=== PATIENT | female | born 1985 | race Caucasian/White ===

== ENCOUNTER 2016-12-16 19:24 | Emergency (ER) | payer MEDICARE, MEDICAID ==
[~2016-12-16] VITALS: Ht 154.9 cm; Wt 96.6 kg
[~2016-12-16 19:24] MED LIST: ABILIFY2 MG; FERROUS SULFAT325 M2; FLINTSTONES W/I1 CTB PO; FOLIC ACID 1MG T1 MG PO; IBUPROFEN400 MG PO; KEPPRA 500 MG500 MG; PERCOCET 5/3251 EACH PO; PRENATAL GUMMIES OR; VISTARIL25 MG OR
[2016-12-16 19:59] LABS: URINE BILIRUBIN - DIPSTICK NEGATIVE (NEG)
[2016-12-16 20:00] LABS: URINE BLOOD NEGATIVE (NEG)
--- NOTE | 2016-12-16 20:05 | Urgent Treatment Center Report ---
History of Present Issue Date/Time Seen by Provider 12/16/161956 Visit Reason Pt arrived:Walked Presenting Problem:PT C/O OF BURNING WHEN SHE URINATES AND HER BLADDER LEAKING WHEN SHE WALKS Location if Accident: Onset of symptoms date/time:11/15/16 or onset unknown for: Have you (or family members/close friends) recently traveled outside the [place]? N If Yes, where/when: Have you had exposure to infectious disease within the past month? TB? Other? Specify: Patient state that she is having UTI symptoms, state that she is having burning with urination, dribbling of urine and feeling of urgency to go and that she is frequently urinating small amounts. States that she has a history of UTI and thinks she may have one Source patient ALLERGIES Coded Allergies: No Known Allergies (12/16/16) Home Medications Active Scripts IBUPROFEN MICRONIZED (IBUPROFEN 400MG) 400 MG PO Q4HP PRN #40 Prov: 01/29/13 Oxycodone 5MG/[id number] (Oxycodone-Acetaminophen 5-325) 1-2 TAB PO Q4HP #12 TAB Prov: 01/29/13 Reported Medications [ GUMMIES] 2 TAB OR DAILY History Medical History General CAD? No Angina: No AL: No Hypertension? No Hyperlipidemia? No CHF? No DVT? No PE? No COPD? No Asthma? No GERD? No Gastric ulcers? No GI Bleed? No Hernia? No Thyroid Problems? No Hypothyroidism? No CVA? No Seizures? Yes Diabetes? No Renal Insuffiency? No UTI? Yes Stones? No GB Disease: No Nephritic Syndrome? No Asplenia? No Sickle Cell Disease? No MRSA? No TB? No Depression? No Cancer? No Immunization HX DT/Tetanus 5-10 Years Ago Flu REFUSES Pneumonia REFUSES Surgical Hx Previous Surgery?Y LEEP-2008 Social History Smoking Hx Smoker: Never Smoker Tobacco: No Alcohol Alcohol: No Review of Systems All Other Systems Reviewed and Negative Genitourinary see HPI, dysuria, frequency, pain. denies: hesitancy, hematuria, pelvic pain. Physical Exam Vital Signs Vital Signs Date Time Temp Pulse Resp B/P Pulse O2 O2 Flow FiO2 Ox Delivery Rate 12/16 2026 98.1 104 20 122/81 100 12/17 1951 98.1 104 20 122/81 100 General Appearance normal appearance, WD/WN, no apparent distress Respiratory Status Yes: trachea midline, chest symmetrical, non tender chest. No: respiratory distress. 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 No Results/Orders Laboratory Tests 12/16/161958: Urine Color YELLOW, Urine Appearance CLEAR, Urine pH 7.5, Ur Specific [place] 1.015, Urine Protein NEGATIVE, Urine Ketones NEGATIVE, Urine Blood NEGATIVE, Urine Nitrate NEGATIVE, Urine Bilirubin NEGATIVE, Urine Urobilinogen 0.2, Ur Leukocyte Esterase LARGE, Urine Glucose NEGATIVE Current Medication Orders Sig/Alona Start time Last Medication Dose Route Stop Time Status Admin Lidocaine HCl 0 .STK-MED ONE 12/16 2002 DC IJ Ceftriaxone Sodium 0 .STK-MED ONE 12/16 2001 DC .ROUTE Ceftriaxone Sodium 1 GM ONCE ONE 12/17 1999 DC 12/16 IM 12/16 Lidocaine HCl 0 ONCE ONE 12/17 1999 DC 12/16 IM 12/16 Orders Procedure Date/time Status [facility] URINE 12/17 2003 Active [facility] URINE DIPSTICK 12/16 1958 Complete Departure Departure Time of Disposition 2000 Disposition DC Home or Self Care(routine) Clinical Impression Primary Impression: UTI (urinary tract infection) Qualifiers: Urinary tract infection type: site unspecified Hematuria presence: with hematuria Qualified Code: N39.0 - Urinary tract infection, site not specified Condition STABLE Referrals JEAN RANKIN (Family): 2 Days-Call Office Follow up with family doctor if no improvement in 2-3 days Patient Instructions DI for Urinary Tract Infection (UTI) Additional Instructions Take medication as prescribed Follow up with family doctor if needed Return if needed Drink plenty of fluids to help flush out the kidneys Discharge Counseling Counseled pt/family regarding diagnosis, test results, medications/RX, home care, follow up needs Prescriptions Current Visit Scripts SULFAMETHOXAZOLE W/TRIMETHOPRI (Bactrim Ds Tab) 1 TABLET PO BID #20 TAB Phenazopyridine HCl (Pyridium) 100 MG PO TID #6 TAB at 202
--- NOTE | 2016-12-16 20:05 | Urgent Treatment Center Report ---
History of Present Issue Date/Time Seen by Provider 12/16/161956 Visit Reason Pt arrived:Walked Presenting Problem:PT C/O OF BURNING WHEN SHE URINATES AND HER BLADDER LEAKING WHEN SHE WALKS Location if Accident: Onset of symptoms date/time:11/15/16 or onset unknown for: Have you (or family members/close friends) recently traveled outside the [place]? N If Yes, where/when: Have you had exposure to infectious disease within the past month? TB? Other? Specify: Patient state that she is having UTI symptoms, state that she is having burning with urination, dribbling of urine and feeling of urgency to go and that she is frequently urinating small amounts. States that she has a history of UTI and thinks she may have one Source patient ALLERGIES Coded Allergies: No Known Allergies (12/16/16) Home Medications Active Scripts IBUPROFEN MICRONIZED (IBUPROFEN 400MG) 400 MG PO Q4HP PRN #40 Prov: 01/29/13 Oxycodone 5MG/[id number] (Oxycodone-Acetaminophen 5-325) 1-2 TAB PO Q4HP #12 TAB Prov: 01/29/13 Reported Medications [ GUMMIES] 2 TAB OR DAILY History Medical History General CAD? No Angina: No CO: No Hypertension? No Hyperlipidemia? No CHF? No DVT? No PE? No COPD? No Asthma? No GERD? No Gastric ulcers? No GI Bleed? No Hernia? No Thyroid Problems? No Hypothyroidism? No CVA? No Seizures? Yes Diabetes? No Renal Insuffiency? No UTI? Yes Stones? No GB Disease: No Nephritic Syndrome? No Asplenia? No Sickle Cell Disease? No MRSA? No TB? No Depression? No Cancer? No Immunization HX DT/Tetanus 5-10 Years Ago Flu REFUSES Pneumonia REFUSES Surgical Hx Previous Surgery?Y LEEP-2008 Social History Smoking Hx Smoker: Never Smoker Tobacco: No Alcohol Alcohol: No Review of Systems All Other Systems Reviewed and Negative Genitourinary see HPI, dysuria, frequency, pain. denies: hesitancy, hematuria, pelvic pain. Physical Exam Vital Signs Vital Signs Date Time Temp Pulse Resp B/P Pulse O2 O2 Flow FiO2 Ox Delivery Rate 12/16 2026 98.1 104 20 122/81 100 12/17 1951 98.1 104 20 122/81 100 General Appearance normal appearance, WD/WN, no apparent distress Respiratory Status Yes: trachea midline, chest symmetrical, non tender chest. No: respiratory distress. 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 No Results/Orders Laboratory Tests 12/16/161958: Urine Color YELLOW, Urine Appearance CLEAR, Urine pH 7.5, Ur Specific [place] 1.015, Urine Protein NEGATIVE, Urine Ketones NEGATIVE, Urine Blood NEGATIVE, Urine Nitrate NEGATIVE, Urine Bilirubin NEGATIVE, Urine Urobilinogen 0.2, Ur Leukocyte Esterase LARGE, Urine Glucose NEGATIVE Current Medication Orders Sig/Alona Start time Last Medication Dose Route Stop Time Status Admin Lidocaine HCl 0 .STK-MED ONE 12/16 2002 DC IJ Ceftriaxone Sodium 0 .STK-MED ONE 12/16 2001 DC .ROUTE Ceftriaxone Sodium 1 GM ONCE ONE 12/17 1999 DC 12/16 IM 12/16 Lidocaine HCl 0 ONCE ONE 12/17 1999 DC 12/16 IM 12/16 Orders Procedure Date/time Status [facility] URINE 12/17 2003 Active [facility] URINE DIPSTICK 12/16 1958 Complete Departure Departure Time of Disposition 2000 Disposition DC Home or Self Care(routine) Clinical Impression Primary Impression: UTI (urinary tract infection) Qualifiers: Urinary tract infection type: site unspecified Hematuria presence: with hematuria Qualified Code: N39.0 - Urinary tract infection, site not specified Condition STABLE Referrals JEAN RANKIN (Family): 2 Days-Call Office Follow up with family doctor if no improvement in 2-3 days Patient Instructions DI for Urinary Tract Infection (UTI) Additional Instructions Take medication as prescribed Follow up with family doctor if needed Return if needed Drink plenty of fluids to help flush out the kidneys Discharge Counseling Counseled pt/family regarding diagnosis, test results, medications/RX, home care, follow up needs Prescriptions Current Visit Scripts SULFAMETHOXAZOLE W/TRIMETHOPRI (Bactrim Ds Tab) 1 TABLET PO BID #20 TAB Phenazopyridine HCl (Pyridium) 100 MG PO TID #6 TAB at 202
[2016-12-16] MEDS ORDERED: BACTRIM DS 8001 TA1 PO (20:23)
[2016-12-16] MEDS ORDERED: PYRIDIUM100 M2 PO (20:23)
[2016-12-16 20:27] VITALS: BP 122/81
--- OUTSIDE RECORDS SUMMARY | 2016-12-23 04:51 | External Medical Summary Rpt ---
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 TH 00 t ti 10 3- 7- 00 84 Av ve 38 20 20 HO 9 ai 50 08 08 ME la 5 TO bl WN e PH AR MA CY , IN C. 63 03 04 00 30 10 BA 60 No Ac 30 -1 -1 .0 TH 06 t ti 40 3- 7- 00 47 Av ve 65 20 20 HO 9 ai 50 08 08 ME la 5 TO bl WN e PH AR MA CY , IN C. 00 03 04 00 21 6 BA 60 No Ac 55 -1 -1 .0 TH 06 t ti 50 3- 7- 00 48 Av ve 30 20 20 HO 0 ai 13 08 08 ME la 8 TO bl WN e PH AR MA CY , IN C. 00 09 03 00 47 15 BA 60 No Ac LO 11 -1 -2 3. TH 02 t ti RH 62 8- 4- 00 95 Av ve EX 00 20 20 0 HO 8 ai ID 11 07 08 ME la IN 6 TO bl E WN e 0. 12 PH % AR RI MA NS CY E , IN C. FE 00 12 03 01 30 30 BA 60 No Ac RR 57 -1 -2 .0 TH 02 t ti OU 40 1- 4- 00 01 Av ve S 50 20 20 HO 3 ai GL 81 07 08 ME la UC 1 TO bl ON WN e AT E PH 32 AR 4 MA MG CY , TA IN B C. 66 12 03 01 30 30 BA 60 No Ac 47 -1 -2 .0 02 t ti 90 - 4- 00 01 Av ve 83 20 20 HO 4 ai 09 07 08 ME la 0 TO bl WN e PH AR MA CY , IN C. Immunization Name Date Route CVX Reacti Commen Provid Is Given on t er Refuse d IIV4 [place] No VACC 2016 N CO SPLIT [facility] VIRUS 0.5 ML DEPART DOS MENT FOR IM USE Vital Signs 01-27-2013 19:35 Name Value Interpretat Reference Comment ion Range Weight 129 [lb_av] Measured Weight 58.514 kg Measured Results Labs Lab Lab Date Result Refere Interp Status Commen Order Detail nces retati t Range on pH BldCo (01-27-2013 20:53) pH 7.34 7.35-7. complet BldCo 013 UNK 45 ed 20:53 CBC with AUTO DIFF (01-27-2013 15:45) WBC # -04-2 8.4 4.8-10. complet Bld 013 K/MM3 8 ed Auto 15:45 RBC # -04-2 3.43 4.2-5.4 complet Bld 013 M/mm3 ed Auto 15:45 Hgb 01-27-2 8.9 12.2-16 complet Bld-mCn 013 g/dL .2 ed c 15:45 Hct Fr 01-27-2 28.6 % 37.0-47 complet Bld 013 .0 ed 15:45 MCV RBC 01-27-2 83.4 fl 82.2-97 complet 013 .8 ed 15:45 MCH RBC 04-2 25.9 pg 27-31.2 complet Qn 013 ed Auto 15:45 MEAN 01-27- 31.1 31.8-35 complet CORPUSC 013 g/dl .4 ed ULAR 15:45 HGB CONC RDW RBC 04-2 17.0 % 11.5-17 complet Auto 013 .5 ed 15:45 Platele 2 225 142-424 complet t Bld 013 K/mm3 ed Ql 15:45 Manual MEAN 07-04-2 9.3 fl 7.4-10. complet PLATELE 013 4 ed T 15:45 VOLUME Granulo 07-04-2 72.9 % 37.0-80 complet cytes 013 .0 ed Fr Bld 15:45 Auto LYMPH % 07-04-2 23.1 % 10-50.0 complet 013 ed 15:45 Monocyt 07-04-2 3.1 % 1.7-9.3 complet es Fr 013 ed Bld 15:45 Auto Eosinop 07-04-2 0.7 % 0.1-12. complet hil Fr 013 0 ed Bld 15:45 Auto Basophi 07-04-2 0.2 % 0.1-2.0 complet ls Fr 013 ed Bld 15:45 Auto Granulo 07-04-2 6.1 1.8-7.8 complet cytes # 013 K/mm3 ed Bld 15:45 Auto Lymphoc 07-04-2 1.9 0.7-4.5 complet ytes Fr 013 K/mm3 ed Bld 15:45 Auto Monocyt 07-04-2 0.3 0.1-1.0 complet es # 013 K/mm3 ed Bld 15:45 Auto Eosinop 07-04-2 0.1 0.0-0.4 complet hil # 013 K/mm3 ed Bld 15:45 Auto Basophi 07-04-2 0.0 0-0.2 complet ls # 013 K/MM3 ed Bld 15:45 Auto SPT, QUALITATIVE (05-07-2012 10:45) SPT, NEGATIV NEGATIV Normal complet QUALITA 012 E E ed TIVE 10:45 Procedures Procedure DOS Code Location Performer Comment IM ADM 64296 [facility] PRQ ID 7 [facility] [employer] HEALTH SUBQ/IM NJXS 1 DEPARTMEN DEPARTMEN VACCINE T T IIV4 VACC 56165 [facility] SPLIT 7 DC [facility] HE[facility] VIRUS 0.5 ML DOS DEPARTMEN DEPARTMEN FOR IM T T USE NONEMERG A0120 FEDERATED FEDERATED TRNSPRT: 6 [facility]SPORT TRANSPORT MTN ATION SER ATION SER AREA/OTH SYS NONEMERG A0120 FEDERATED FEDERATED TRNSPRT: 6 [facility] TRANSPORT TRANSPORT MTN [facility] SER [facility] SYS NONEMERG A0120 FEDERATED FEDERATED TRNSPRT: 6 [facility]-BUS TRANSPORT TRANSPORT MTN [facility] SYS THERAPEUT 87900 [place] IC PX 1/> 6 [facility] EACH 15 MIN EXERCISES CARRY G8986 [place] MOVING 6 [facility] HAND OBJ [facility] NGUYEN D/C STS D/C TX/REP CAR MOV G8985 [place] HDLG OBJ 6 [facility] TX OUTSET&RE P INTRVL NONEMERG A0120 FEDERATED FEDERATED TRNSPRT: 6 MIN[facility]-BUS TRANSPORT TRANSPORT [facility] SER [facility] SYS THERAPEUT 62678 [place] IC PX 1/> 6 [facility] EACH 15 MIN EXERCISES THERAPEUT 32490 [place] IC PX 1/> 6 [facility] EACH 15 MIN EXERCISES IADNA 58646 LAB [facility] LEYDA VAZQUEZ 6 [facility] [employer] AMPLIFIED PROBE TQ IADNA 45975 [facility] LAB LEYDA CHLAMYDIA 6 [facility] [employer] [employer] TRACHOMAT IS AMPLIFIED PROBE TQ IADNA 82821 LAB [facility] LAB LEYDA NEISSERIA 6 [facility] [employer] GONORRHOE AE AMPLIFIED PROBE TQ IADNA NOS 66350 LAB LE[facility] LAB LEYDA 6 [facility] AMPLIFIED 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 TQ EACH ORGANISM E-STIM G0283 [place] 1/> AREAS 6 [facility] WND CARE PART TX PLAN IADNA 40463 LAB [facility] LAB LEYDA TRICHOMON 6 [facility] [employer] VAGINALIS AMPLIFIED PROBE TECH CARRY MOV G8984 [place] HANDLNG 6 [facility] NGUYEN CUR TX REP INTRVL CAR MOV G8985 [place] HDLG OBJ 6 [facility] TX OUTSET&RE P INTRVL PHYSICAL 21550 [facility] PIPERUR[facility] THERAPY 6 [facility] N CULTURE 63174 [place] BACTERIAL [address] [place] [address] QUANTTATI VE COLONY COUNT URINE COLLECTIO 11399 [facility] N VENOUS 6 [facility] VENIPUNCT URE URNLS DIP 56988 [facility] YUONGON [address] [place] [address] STICK/TAB [facility] LET REAGENT AUTO MICROSCOP Y BLOOD 74331 [facility] [place] COUNT [address] [place] [address] AUTO&AUTO DIFRNTL WBC LIPID 14378 [facility] [place] PANEL [address] [place] [address] [place] [address] [facility] THYROID [address] [place] [address] NG HORMONE TSH COMPREHEN 65103 [place] SIVE [address] [place] [address] [place] [address] [facility] [place] NON-IMMUN [address] [place] [address] OT/N CYTOPATHI C NONCOVERE A9270 [facility] D ITEM OR [address] [place] [address] IADNA 45196 [facility] NEISSERIA [address] [place] [address] GONORRHOE AE AMPLIFIED PROBE TQ IADNA 27631 [facility] CHLAMYDIA [address] [place] [address] TRACHOMAT IS AMPLIFIED PROBE TQ SMR PRIM 86463 [facility] SRC WET [address] [facility] NFCT AGT URINE 15394 [place] [address] [place] [address] VISUAL COLOR CMPRSN METHS URNLS DIP 59147 [facility] YOUNGON [address] [place] [address] STICK/TAB [facility] LET REAGENT AUTO MICROSCOP Y IADNA 01644 [facility], HUMAN 5 [facility] VIRUS HIGH-RISK TYPES THERAPEUT 89202 [facility] YOUNGON IC [address] [place] [address] TIC/DX INJECTION SUBQ/IM OPHTH 47860 SCIFRES SCIFRES MEDICAL 4 ANG ANG XM&EVAL COMPRE NEW PT 1/> VST RADEX 56754 DORCAS TOSCANO HAND 3 EDW EDW MINIMUM 3 VIEWS MEDICAL 50724 [facility]NG[facility] NUTRITION 3 [facility] RE-ASSMT& DEPARTMEN DEPARTMEN IVNTJ T T IN[place] [address] [place] [address] CONSUELO CORDERO HEAD/BRAI 3 HARRIETT N W/O CONTRAST MATERIAL XTRNL ECG 50887 CHOUDHURY SHERICE CHOUDHURY SHERICE & 48 HR 3 RECORDING ECHO 28612 CHOUDHURY SHERICE CHOUDHURY SHERICE TTHRC R-T 3 2D W/WOM-MOD E COMPL SPEC&COLR D ECG 78102 [facility] ROUTINE 3 ECG W/LEAST 12 LDS W/I&R VAGINAL 07040 DEION [facility] DELIVERY 3 MONE MONE ONLY W/POSTPAR CLIF CARE NEURAXIAL 79733 GRANT CYNDIE GRANT CYNDIE LABOR 3 ANALG/ANE S PLND VAGINAL DELIVERY OTHER 7359 ANITA HOWARD MANUALLY 3 [facility] ASSISTED INC INC DELIVERY NONCOVERE A9270 VERONIQUEPARVEEN HANNAHON D ITEM OR 3 [facility] URNLS DIP 33720 ANITA HOWARD 3 [facility] STICK/TAB INC INC LET REAGENT AUTO MICROSCOP Y 08092 ANITA HOWARD NONSTRESS 3 [facility] TEST INC INC DOPPLER 68470 [facility] VELOCIMET 3 MONE MONE RY UMBILICAL ARTERY US PREG 31891 [facility] [place] UTERUS 3 MONE MONE REAL TIME F/U TRNSABDL PER FETUS 62555 [facility] BIOPHYSIC 3 MONE MONE AL PROFILE W/O NON-STRES S TESTING 30912 HARPEL HARPEL NONSTRESS 3 KHLOE KHLOE TEST DOPPLER 30543 [facility] [place] VELOCIMET 3 MONE MONE RY UMBILICAL ARTERY 65964 [facility] [place] BIOPHYSIC 3 MONE MONE AL PROFILE W/O NON-STRES S TESTING US PREG 21118 [facility] [place] UTERUS 3 MONE MONE REAL TIME F/U TRNSABDL PER FETUS URINE 15155 [place] ABLARRAN 3 MONE MONE TEST VISUAL COLOR CMPRSN METHS URINE 61057 DICKEY DICKEY 2 SABINO SABINO TEST VISUAL COLOR CMPRSN METHS URINE 45988 JOSE MAR[facility] CO JOSE MARIA CO 2 HEALTH HEALTH TEST DEPT DEPT VISUAL COLOR CMPRSN METHS URINE 92150 JOSE MARIA CO JOSE MARIA CO 2 HEALTH HEALTH TEST DEPT DEPT VISUAL COLOR CMPRSN METHS MEDICAL 16290 JOSE MAR[facility] CO JOSE MARIA CO NUTRITION 2 HEALTH HEALTH DEPT DEPT ASSMT&IVN TJ INDIV EACH 15 [place] COLLECTIO 79425 QUINN QUINN N VENOUS 2 SAY SAY BLOOD VENIPUNCT URE URINE 28279 QUINN QUINN 2 SAY SAY TEST VISUAL COLOR CMPRSN METHS GONADOTRO 78407 [facility] PIN [address] QUALITATI VE NONCOVERE A9270 [facility] D ITEM OR 2 Y Y SERVICE HOSPITAL [facility] URNLS DIP 07170 [facility] 2 Y Y STICK/TAB [facility] LET REAGENT AUTO MICROSCOP Y IADNA 28597 [facility] STREPTOCO 2 Y Y CCUS [facility] GROUP [place]Q [address] [facility] NONSTRESS 2 Y Y TEST [facility] 98481 [facility] NONSTRESS 2 Y Y TEST [facility] US PREG 18353 [facility] UTERUS 2 Y Y REAL TIME HOSPITAL [facility] F/U TRNSABDL PER FETUS 41412 [facility] BIOPHYSIC 2 Y Y AL [facility] PROFILE W/O NON-STRES S TESTING 95299 [facility] NONSTRESS 2 Y Y TEST [facility] 08577 [facility] 2 Y Y UTERUS [facility] LIMITED 1/> FETUSES 30783 [facility] NONSTRESS 2 HEALTH MONE TEST [facility] 93166 [facility] 2 MEDICAL RADHA AL IMAGING PROFILE ASS NON-STRES S TESTING 81631 [facility] NONSTRESS 2 Y Y TEST HOSPITAL HOSPITAL COLLECTIO 96488 [place] N VENOUS 2 [facility] HOSPITAL VENIPUNCT URE INJECTION J0696 [facility] YOUNGON 2 [facility] NE SODIUM [place] [address] [place] [address] [place] INFUSION 2 [facility] THERAPY/[facility] S /DX 1ST TO 1 HR COMPREHEN 33804 [place] SIVE 2 [facility]PITAL PANEL URINE 18794 [facility] [place] 2 [facility] VISUAL COLOR CMPRSN METHS CULTURE 36399 [place] BACTERIAL 2 [facility] QUANTTATI VE COLONY COUNT URINE IADNA 08298 [place] NEISSERIA 2 [facility] GONORRHOE AE DIRECT PROBE TQ URNLS DIP 79761 [facility] [place] [address] [place] [address] STICK/TAB HOSPITAL HOSPITAL LET REAGENT AUTO MICROSCOP Y BLOOD 16829 [facility] [place] COUNT [address] [place] [address] HOSPITAL AUTO&AUTO DIFRNTL WBC IADNA 30686 [place] CHLAMYDIA 2 [facility] [place] [address] [facility] NONSTRESS 2 Y Y TEST HOSPITAL HOSPITAL INJECTION J2405 [facility] 2 [facility] ON HCL PER [place] [address] [facility] LIPASE 2 [facility] HOSPITAL COMPREHEN 32051 [facility] SIVE 2 [facility]OSPITAL PANEL ELECTROEN 08764 [facility] CEPHALOGR 2 Y Y AM W/REC HOSPITAL HOSPITAL AWAKE&SIDRA WSY BLOOD 78829 [facility]NG[facility] COUNT 2 [facility] HOSPITAL AUTO&AUTO DIFRNTL WBC URNLS DIP 11089 [facility] [address] [place] [address]/TAB [facility] LET [place] [address] [facility] AMYLASE 2 [facility] COLLECTIO 51840 [facility] N VENOUS 2 [facility] VENIPUNCT URE THER 50167 [facility] PROPH/DX 2 [facility] NJX IV [facility] PUSH SINGLE/1S T SBST/[place] [address] [facility] [place] SCALF SHAHBAZ 2 RADIOLOGY UTERUS LIMITED 1/> FETUSES CULTURE 43865 [facility] BACTERIAL 2 [facility] QUANTTATI VE COLONY COUNT URINE URNLS DIP 88863 [facility] 2 [facility] STICK/TAB [facility] LET REAGENT AUTO MICROSCOP Y ALPHA-FET 48586 LAB COR LAB COR OPROTEIN 2 [place] [address] LAB COR LAB COR ESTRIOL 2 [place] [address] LAB [facility] LAB COR 2 [facility] GONADOTRO 46501 LAB COR LAB COR PIN 2 [facility]IONIC [facility] HOLDING QUANTITAT [place]BE [place] PREG 79339 ISHA VIEIRA J UTERUS 2 REAL TIME F/U TRNSABDL PER FETUS US PREG 26617 VIEIRA J VIEIRA J UTERUS 2 REAL TIME W/IMAGE DCMTN TRANSVAG CYTP 96626 PATHOLOGY ALEX[facility] CERVICAL/ 2 & NANI VAGINAL CYTOLOGY REQ LAB INTERP PHYSICIAN IADNA 71443 PATHOLOGY ALEXUS CHLAMYDIA 2 & NANI CYTOLOGY TRACHOMAT LAB IS AMPLIFIED PROBE TQ CYTP C/V 03063 PATHOLOGY [facility] AUTO THIN 2 & NANI LYR CYTOLOGY PREPJ SCR LAB MNL RESCR PHYS IADNA 82342 PATHOLOGY ALEXUS NEISSERIA 2 & NANI CYTOLOGY GONORRHOE LAB AE AMPLIFIED PROBE TQ AMB A0427 [facility] 2 RODRIGUE HUSAIN ALS CO EMS CO EMS EMERGENCY TRANSPORT LEVEL 1 GROUND A0425 [facility] RODRIGUE HUSAIN PER DC EMS CO EMS STATUTE MILE ECG [address] [facility] ROUTINE [address] W/LEAST 12 LDS TRCG ONLY W/O I&R ECG 07125 [facility] BOOKER ROUTINE 1 MEDICAL [facility] ECG CENTER W/LEAST 12 LDS I&R ONLY RADIOLOGI [address] [facility] C [address] ON CHEST SINGLE VIEW FRONTAL URINE [address] [facility] [address] VISUAL COLOR CMPRSN METHS THERAPEUT 01773 BATH HERNANDEZ IC 1 [facility] OZZY PROPHYLAC TIC/DX INJECTION SUBQ/IM THER [address] [facility] PROPH/DX [address] NJX [address] PUSH SINGLE/1S T SBST/DRUG COLLECTIO [address] [facility] N VENOUS [address] VENIPUNCT URE URINE [address] [facility] [address] VISUAL COLOR CMPRSN METHS COMPREHEN [address] [facility] SIVE [address] PANEL INJECTION J1885 [facility] [address] TROMETHAM INE [place] [address] [place] [address] [facility] INFUSION [address] EACH ADDITIONA L HOUR URNLS DIP [address] [facility] 1 MEDICAL MEDICAL STICK/TAB CT CT LET REAGENT AUTO MICROSCOP Y RADIOLOGI [address] [facility] C EXAM 1 MEDICAL MEDICAL CHEST [address] VIEWS FRONTAL&L ATERAL BLOOD [address] [facility] COUNT [address] AUTO&[place] [address] [facility] INFLUENZA 1 MEDICAL MEDICAL A/B EACH [place] CYTP [address] [facility] CERV/VAG [address]ICAL MED[address] AUTO THIN [address] LAYER PREP MNL SCREEN URNLS DIP 37517 [facility] 1 [place] STICK/TAB LET RGNT AUTO W/O MICROSCOP Y URINE 57372 [facility] 1 [facility] K[facility]BER[place] TEST VISUAL COLOR CMPRSN METHS BLOOD [address] [facility] COUNT [address] MCRSCP W/MNL DIFRNTL WBC COUNT CUL BACT [address] [facility] AEROBIC [address] [place] [address] [facility] INFUSION [address] EACH ADDITIONA L HOUR COMPREHEN [address] [facility] SIVE [address] [place] [address] [facility] INFUSION [address] PROPHYLAX IS/DX EA HOUR COLLECTIO [address] [facility] N VENOUS [address] VENIPUNCT URE INJECTION J2405 [facility] [address] ON HCL [place] [address] [facility] INFUSION 0 MEDICAL MEDICAL THERAPY/P CT CT ROPHYLAXI S /DX 1ST TO [address] [facility] IC [address] IV PUSH EACH NEW DRUG INCISION [address] [facility] & [address] ABSCESS COMPLICAT ED/MULTIP LE INJECTION J2175 [facility] [address] E HCL PER [address] B[address] [facility] COUNT [address] AUTOMATED CULTURE [address] [facility] BACTERIAL [address] AEROBIC W/ID ISOLATES SUSCEPTIB [address] [facility] LTY STDY [address] IAL MICRO/AGA R DILUTJ ORTHOPANT 57007 FREDDY SANDOVAL OGRAM [address] [place] [place] [address] [facility] [place] J[place] HEAD/BRAI 0 RADIOLOGY N W/O CONTRAST MATERIAL ELECTROEN [address] [place] CEPHALOGR 0 MEDICAL MEDICAL AM W/REC CTR CTR AWAKE&ASL EEP ELECTROEN 23666 [facility] MOMO, CEPHALOGR 0 CLINIC ENAWGAW AM W/REC AWAKE&SIDRA WSY URINE 57541 BATH CO BATH CO 0 [facility] VISUAL COLOR CMPRSN METHS IADNA 66259 BATH CO BATH CO CHLAMYDIA 0 [facility] TRACHOMAT IS AMPLIFIED PROBE TQ IADNA 61147 BATH CO BATH CO NEISSERIA 0 [facility] [place] [address] [facility] BILL, HEAD/BRAI 0 REGIONAL SONY N W/O & W/CONTRAS RADIOLOGY T PHYS MATERIAL SRVS COMPREHEN 81053 [facility] SIVE 0 MEDICAL MEDICAL METABOLIC CTR CTR PANEL URINE 26805 [facility] 0 MEDICAL MEDICAL TEST CTR CTR VISUAL COLOR CMPRSN METHS COLLECTIO 54970 [facility] N VENOUS 0 MEDICAL MEDICAL BLOOD CTR CTR VENIPUNCT URE URINE 57071 [facility], 0 [facility] D TEST VISUAL COLOR CMPRSN METHS COLLECTIO 38684 [facility], N VENOUS 0 [facility] PU[place] [address] [facility] THYROID 0 MEDICAL MEDICAL STIMULATI CTR CTR NG HORMONE TSH BLOOD 30603 [facility] COUNT 0 MEDICAL MEDICAL COMPLETE CTR CTR AUTO&AUTO DIFRNTL WBC URNLS DIP 00023 [facility], 0 [facility] D STICK/TAB LET REAGENT AUTO MICROSCOP Y GONADOTRO 90407 [facility] PIN 0 [facility] APOLINAR QUALITATI VE BLOOD 59002 [facility] COUNT 0 [place] COMPLETE APOLINAR APOLINAR AUTO&AUTO DIFRNTL WBC URNLS DIP 17618 [facility] 0 [place] STICK/TAB APOLINAR APOLINAR LET RGNT AUTO W/O MICROSCOP Y BASIC 40311 [facility] METABOLIC 0 [place] PANEL APOLINAR APOLINAR CALCIUM TOTAL COLLECTIO 63703 [facility] N VENOUS 0 [place] BLOOD APOLINAR APOLINAR VENIPUNCT URE URINE 05270 [facility]ATH [facility], 0 [facility] D TEST VISUAL COLOR CMPRSN METHS COLLECTIO 20786 [facility], N VENOUS 0 [facility] [place] [address] [facility] BLOOD/URI 0 MEDICAL MEDICAL C ACID CTR CTR ANTINUCLE 78670 [facility] AR 0 MEDICAL MEDICAL ANTIBODIE CTR CTR S LULU RHEUMATOI 90139 [facility] D FACTOR 0 MEDICAL MEDICAL QUALITATI CTR CTR VE SEDIMENTA 10893 [facility] TION RATE 0 MEDICAL MEDICAL RBC CTR CTR NON-AUTOM ATED URINE 50749 BATH RAFAEL, 0 [facility] PUJA D TEST VISUAL COLOR CMPRSN METHS URINE 35710 [facility] ST [place] 0 MEDICAL MEDICAL TEST CTR CTR VISUAL COLOR CMPRSN METHS URNLS DIP [address] [facility] ST [place] 0 MEDICAL MEDICAL STICK/TAB CTR CTR LET RGNT AUTO W/O MICROSCOP Y CYTP 15754 [facility] ST [place] CERV/VAG 0 MEDICAL MEDICAL AUTO THIN CTR CTR LAYER PREP MNL SCREEN URINE 41775 BATH CO BATH CO 0 [facility] VISUAL COLOR CMPRSN METHS IADNA 12343 [facility]/CO BATH CO CHLAMYDIA 9 [facility] TRACHOMAT BANK ACCT IS AMPLIFIED PROBE TQ CYTP 25893 [facility] [place] CERV/VAG 9 MEDICAL MEDICAL AUTO THIN CTR CTR LAYER PREP MNL SCREEN AMINES 52241 [facility]/CO BATH CO VAGINAL 9 [facility] QUALITATI BANK ACCT VE IADNA 83936 [facility]/CO BATH CO NEISSERIA 9 [facility] GONORRHOE BANK ACCT AE AMPLIFIED PROBE TQ CYTP 600[facility] AUTO THIN CTR CTR LAYER PREP MNL SCREEN CYTP 20499 [facility]OSS, CERVICAL/ 8 MEDICAL TJ VAGINAL [place] [facility] 489[address] [facility] HENLY, DISCHARGE 8 [facility]INIC [facility] DAY MANAGEMEN T 30 MIN/< CIRCUMCIS 45869 [facility] VALLEJO ION 8 [facility] W/CLAMP/O TH DEV W/BLOCK HX&XM NML 09719 NAVARRO VALLEJO NB INFT 8 [facility] INITIATIO N DX&TX VAGINAL 46565 NAVARRO MCBREAIRT DELIVERY 8 CLINIC Y, DEB H ONLY W/POSTPAR CLIF CARE OTHER [address] [facility] MANUALLY 8 [facility] ASSISTED [facility] CTR DELIVERY OTHER [address] [facility] ARTIFICIA 8 [facility]ICAL MEDICAL L RUPTURE CTR CTR OF [place]BRANES [place] PREG [address] [facility] [place] STEVE UTERUS 8 REGIONAL II, [place] REAL TIME D F/U RADIOLOGY TRNSABDL PHYS PER FETUS SRVS [address] [facility] STEVE BIOPHYSIC 8 REGIONAL II, [place] AL D PROFILE RADIOLOGY W/O PHYS NON-STRES SRVS S TESTING [address] [facility] BIOPHYSIC 8 MEDICAL MEDICAL AL CTR CTR PROFILE W/O NON-STRES S TESTING INITIAL 85926 NAV[facility]O WHITTAKERT OBSERVATI 8 CLINIC Y, DEB H ON CARE/DAY [id number] [facility] 8 [facility]ICAL CEFAZOLIN CTR CTR SODIUM [address] [facility] LACTATE 8 [facility]ICAL INFUSION CTR CTR UP TO 1000 CC 55504 NAVARRO RAHULAIRT NONSTRESS 8 CLINIC Y, DEB H TEST THER [address] [facility] PROPH/DX 8 MEDICAL MEDICAL NJX IV CTR CTR PUSH 1ST SBST/DRUG [address] [facility] NONSTRESS 8 [facility]ICAL MEDICAL TEST CTR CTR RINGERS J7120 [facility] [address] [facility] LACTATE 8 [facility] INFUSION CTR CTR UP TO [address] [facility] BACTERIAL 8 MEDICAL MEDICAL CTR CTR QUANTTATI VE COLONY COUNT URINE IV NFUS [address] [place] HYDRATION 8 MEDICAL MEDICAL EA HR CTR CTR URNLS DIP [address] [facility] 8 MEDICAL MEDICAL STICK/TAB CTR CTR LET RGNT AUTO W/O MICROSCOP Y CUL [address] [facility] PRSMPTV 8 MEDICAL MEDICAL PTHGNC CTR CTR ORGANISM SCRN W/COLONY ESTIMJ [address] [facility] NONSTRESS 8 MEDICAL MEDICAL TEST CTR CTR [place] PREG [address] [facility] [place] STEVE UTERUS 8 REGIONAL II, [place] AFTER 1ST D TRIMEST RADIOLOGY PHYS GESTATION SRVS [address] [facility] STEVE BIOPHYSIC 8 REGIONAL II, [place] AL D PROFILE RADIOLOGY W/O PHYS NON-STRES SRVS S TESTING MANUAL 73.59 Steven Albarran MD DELIV NEC Encounters Encounter Start End Date Code Location Performer Type Date OFFICE 69906 [facility] 7 7 T VISIT 25 MINUTES [facility] - [address] [place] [address] T EMERGENCY [address] T VISIT MODERATE SEVERITY OFFICE 31815 [facility] 6 6 T VISIT 15 MINUTES OFFICE 97890 [facility] T VISIT 15 MINUTES OFFICE 86870 [facility] 6 6 T [facility]ISIT 15 [facility]UTES [facility] 6 [facility] T [facility] S[facility] [address] [place] [address] T OFFICE 74295 [facility] 6 6 T VISIT 25 MINUTES [facility] [address] [place] [address] [facility] 6 [facility] T EMERGENCY [address] T VISIT MODERATE SEVERITY [facility] [place] - 6 6 [facility] T [facility]ERGENCY 18281 [facility] 6 6 [facility] EMERGENCY T VISIT PHYS HIGH/URGE NT SEVERITY EMERGENCY 74231 [place] 6 6 [facility] H[facility]PITAL T VISIT HIGH/URGE NT SEVERITY [facility]OSP[facility] [place] - 6 6 [facility] T EMERGENCY 93372 [place] 5 5 [facility] T VISIT LOW/MODER SEVERITY [facility] [place] - 5 5 [facility] T EMERGENCY 01067 [facility] EILEEN II 5 5 [facility] EMERGENCY T VISIT PHYS MODERATE SEVERITY EMERGENCY 09852 [facility] T[facility]MAN 4 4 [facility] EMERGENCY T VISIT PHYS MODERATE SEVERITY [facility] [place] - 4 4 [facility] T EMERGENCY 78201 [facility] T VISIT PHYS MODERATE SEVERITY [facility] [place] - 4 4 [facility] T EMERGENCY 74617 [place] 4 4 [facility] T VISIT LIMITED/M INOR PROB EMERGENCY 52083 EILEEN II EILEEN II 4 4 [facility] T VISIT MODERATE SEVERITY OFFICE 59573 [facility] T VISIT 15 MINUTES OFFICE 67197 [facility] T VISIT 15 MINUTES EMERGENCY 89548 SWINE[facility] SWINEY 3 3 PAT [facility] T VISIT MODERATE SEVERITY EMERGENCY 57010 CELLAROSI CELLAROSI 3 3 - YORBA - YORBA [facility] PAT PAT T VISIT MODERATE SEVERITY OFFICE 75139 [facility] OUT[facility] 3 3 T VISIT 15 MINUTES EMERGENCY 19255 DORCAS TOSCANO 3 3 EDW EDW [facility] T VISIT MODERATE SEVERITY EMERGENCY 88785 [facility] 3 3 [facility] T VISIT LOW/MODER SEVERITY EMERGENCY 59844 CELLAROSI CELLAROSI 3 3 YORBA - YORBA [facility] PAT PAT T VISIT MODERATE SEVERITY [facility] [place] - 3 3 [facility] T OFFICE 78329 [facility] OUT[facility] 3 3 T NEW 45 MINUTES Inpatient [facility] Anita Albarran MD (IN) 3 13:40 3 11:11 [facility] ANITA - 3 3 [facility] SESSER - 3 3 [facility] T EMERGENCY 73704 [facility] 3 3 [facility] T VISIT HIGH/URGE NT SEVERITY HOSPITAL ANITA - 3 3 [facility] 24235 [facility]L OUTPATIEN 3 3 KHLOE KHLOE T VISIT 15 MINUTES [facility] - 3 3 [facility] T EMERGENCY 89526 [facility] T VISIT HIGH/URGE NT SEVERITY OFFICE 03882 [facility] 3 3 MONE T NEW 30 MINUTES OFFICE 76759 DICKEY DICKEY OUTPATIEN 2 2 SABINO SABINO T NEW 30 MINUTES OFFICE 36002 [facility] 2 2 [facility] T VISIT DEPT DEPT 15 MINUTES OFFICE 27891 [facility] [place] [facility] 2 2 [facility] T VISIT DEPT DEPT 10 MINUTES OFFICE 85128 [facility] [place] 2 2 SAY SAY T VISIT [address] [facility] [address] [facility] - 2 2 [facility] OFF[facility] 07372 UN[facility] OUTPATIEN 2 2 Y T VISIT 5 [facility] UNIVERSIT - 2 2 [facility] UNIVERS[facility] - 2 2 [facility] 2 [facility] - 2 2 Y [facility] T OFFICE 22717 [facility] [place] 2 2 [facility] UNIVERS[facility] - 2 2 Y [facility] T EMERGENCY 77700 [place] 2 2 [facility] T VISIT HIGH/URGE NT SEVERITY [facility]OSP[facility] [place] - 2 2 [facility] T OFFICE 63848 [facility] [place] 2 2 Y T VISIT 5 [facility] UNIVERSIT - 2 2 [facility] 2 2 Y [facility] [place] - 2 2 [facility] T EMERGENCY 09474 [place] 2 2 [facility] T VISIT HIGH/URGE NT SEVERITY EMERGENCY 97923 [place] 2 2 [facility] T VISIT MODERATE SEVERITY [facility] [place] - 2 2 [facility] T OFFICE 42681 ISHA VIEIRA J OUTPATIEN 2 2 T VISIT 15 MINUTES EMERGENCY 18282 [facility] 2 2 N [facility] T VISIT HOSPITA LOW/MODER SEVERITY [facility]OSPITAL [facility] - 2 2 N OUTPATIEN COMMUNITY T HOSPITA EMERGENCY 35347 MINISTERIO MANDEL 2 2 TIARA TIARA DEPARTMEN T VISIT MODERATE SEVERITY OFFICE 44767 ISHA VIEIRA J OUTPATIEN 2 2 T NEW 45 MINUTES OFFICE 95474 AMY GALVAN MAR OUTPATIEN 1 1 [facility] T VISIT [address] [facility] - [address] T EMERGENCY 82998 [facility] [address] T VISIT MODERATE SEVERITY EMERGENCY 91961 [facility] DEPT 1 1 [facility] [place] VISIT HIGH EMERGENCY SEVERITY& THREAT FUNCJ OFFICE 70987 BATH HERNANDEZ OUTPATIEN 1 1 [facility] T VISIT [address] [facility] - [address] T EMERGENCY 34083 [facility] [address] T VISIT HIGH/URGE NT SEVERITY OFFICE 69187 [facility] BROMAGEN OUTPATIEN 1 1 [facility]ES [facility] - 1 1 [facility] OUTPATIEN [facility] T EMERGENCY 84592 [facility] 1 1 MICHAEL PHI DEPARTMEN EMERGENCY T VISIT PHYS MODERATE SEVERITY [facility]PITAL [facility] - [address] T OFFICE 37274 [facility] JEANINE OUTPATIEN 1 1 [facility] SANDY T VISIT WOMEN'S 15 CARE MINUTES OFFICE 39395 [facility]ATH BROMAGEN OUTPATIEN 1 1 [facility] T VISIT 15 MINUTES OFFICE 09850 BATH BROMAGEN OUTPATIEN 1 1 [facility] VIS[facility] [address] [facility] 0 0 REGIONAL DEPARTMEN T VISIT EMERGENCY HIGH/URGE NT SEVERITY [facility]PITAL [facility] - [address] EMER[address] [facility] [address] T VISIT LOW/MODER SEVERITY OFFICE 41695 [facility]ATH BROMAGEN OUTPATIEN 0 0 [facility] T VISIT 15 MINUTES OFFICE 65999 [facility] T VISIT [address] [facility] - [address] EMER[address] [facility] [address] T VISIT LOW/MODER SEVERITY EMERGENCY [address] [facility] [address] T VISIT LOW/MODER SEVERITY HOSPITAL [facility] - [address] [facility] - [address] EMERG[address] [facility] [address] T VISIT HIGH/URGE NT SEVERITY OFFICE 68446 JEANINE OUTPATIEN 0 0 [facility] SANDY T VISIT WOMEN'S 10 CARE MINUTES EMERGENCY [address]32 [facility] JALALON 0 0 REGIONAL SIE DEPARTMEN T VISIT EMERGENCY HIGH/URGE NT SEVERITY [facility]OSPITAL [facility] - [address] EMERGENCY [address] [facility] [address] T VISIT LOW/MODER SEVERITY OFFICE 91916 [facility] MOMO OUTPATIEN 0 0 CLINIC CE T VISIT 15 MINUTES OFFICE 37321 FREDDY SANDOVAL CONSULTAT 0 0 HOPE DON ION IIIPSC NEW/ESTAB N02 PATIENT 30 MIN OFFICE 29249 ARAPAHOE BROMAGEN OUTPATIEN 0 0 [facility] T VISIT 15 MINUTES OFFICE 38297 [facility] MOMO OUTPATIEN 0 0 CLINIC CE T VISIT 15 MINUTES OFFICE 57209 [facility] BARR OUTPATIEN 0 0 CLINIC CE T VISIT 15 MINUTES EMERGENCY 76638 [facility] DE[facility] 0 0 EMERGENCY CAR VISIT SERVICES HIGH SEVERITY& THREAT FUNCJ OFFICE 13334 [facility] BARR OUTPATIEN 0 0 CLINIC CE T VISIT 15 MINUTES OFFICE 26828 [facility] BARR, OUTPATIEN 0 0 CLINIC ENAWGAW T VISIT 15 MINUTES OFFICE 75349 [facility] BARR, CONSULTAT 0 0 CLINIC ENAWGAW ION NEW/ESTAB PATIENT [address] [facility] - 0 0 MEDICAL OUTPATIEN CTR T PERIODIC 33876 BATH CO BATH CO PREVENTIV 0 0 [facility] E [facility] CENTER PATIENT 18-[address] [facility] - 0 0 MEDICAL OUTPATIEN CTR T [facility]PITAL [facility] - 0 0 MEDICAL OUTPATIEN CTR T OFFICE 82386 [facility], OUTPATIEN 0 0 [facility] PUJA D T VISIT [address] [facility] 0 0 [facility]IS[facility] HIGH/URGE NT SEVERITY [facility]PITAL [facility] - [address] [facility] T OFFICE 71262 [facility], OUTPATIEN 0 0 [facility] PUJA D T VISIT 15 MINUTES OFFICE 64324 [facility], OUTPATIEN 0 0 [facility] PUJA D T VISIT [address] [facility] - 0 0 MEDICAL OUTPATIEN CTR T OFFICE 83235 [facility], OUTPATIEN 0 0 [facility] PUJA D T VISIT [address] [facility] - 0 0 MEDICAL OUTPATIEN CTR T EMERGENCY [address] [facility] RAVISANKA 0 0 REGIONAL R, DEPARTMEN [place] T VISIT EMERGENCY AM HIGH/URGE PHYS NT SEVERITY EMERGENCY [address] [facility] 0 0 MED[facility] T VISIT MODERATE SEVERITY [facility] - 0 0 MEDICAL OUTPATIEN CTR T OFFICE 56935 BATH CO BATH CO OUTPATIEN 0 0 [facility] T VISIT CENTER CENTER 15 MINUTES OFFICE 63480 [facility], OUTPATIEN 9 9 [facility] NEW 20 MINUTES PERIODIC 00598 DHS/CO BATH CO PREVENTIV 9 9 [facility] PATIENT BANK ACCT 18-39 [facility] - 9 [address] T [facility] [place] [address] [address] T [facility] [place] [address] 8 MEDICAL INPATIENT CTR OFFICE 35179 NAV[facility] MCBREAIRT OUTPATIEN 8 8 CLINIC Y, DEB H T VISIT 15 MINUTES HOSPITAL [facility] 8 8 MEDICAL OUTPATIEN CTR T OFFICE 06370 [facility] OUTPATI 8 8 MEDICAL T VISIT CTR 15 MINUTES [facility] [place] [address] [address] [facility] 8 8 MEDICAL OUTPATIEN CTR T OFFICE 98516 [facility] OUTPATI 8 8 MEDICAL T VISIT 5 CTR MINUTES [facility]OSPITAL [facility] 8 8 MEDICAL OUTPATIEN CTR T OFFICE 05559 [facility] MCBREAIRT OUTPATIEN 8 8 CLINIC Y, DEB H T VISIT 15 MINUTES OFFICE 69396 NAV[facility]O MCBREAIRT OUTPATIEN 8 8 CLINIC Y, DEB H T VISIT 15 MINUTES
--- OUTSIDE RECORDS SUMMARY | 2016-12-23 04:51 | External Medical Summary Rpt ---
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 METABOLIC CTR CTR PANEL URINE 15202 [facility] 0 MEDICAL MEDICAL TEST CTR CTR VISUAL COLOR CMPRSN METHS COLLECTIO 28491 [facility] N VENOUS 0 MEDICAL MEDICAL BLOOD CTR CTR VENIPUNCT URE URINE 97227 [facility], 0 [facility] D TEST VISUAL COLOR CMPRSN METHS COLLECTIO 45618 [facility], N VENOUS 0 [facility] [place] [address] [facility] THYROID 0 MEDICAL MEDICAL STIMULATI CTR CTR NG HORMONE TSH BLOOD 68420 [facility] COUNT 0 MEDICAL MEDICAL COMPLETE CTR CTR AUTO&AUTO DIFRNTL WBC URNLS DIP 05017 [facility], 0 [facility] D STICK/TAB LET REAGENT AUTO MICROSCOP Y GONADOTRO 65033 [facility] PIN 0 [place] [facility]ION[facility] APOLINAR APOLINAR QUALITATI VE BLOOD 52724 [facility] COUNT 0 [place] COMPLETE APOLINAR APOLINAR AUTO&AUTO DIFRNTL WBC URNLS DIP 20976 [facility] 0 [place] STICK/TAB AP[facility]INAR APOLINAR LET RGNT AUTO W/O MICROSCOP Y BASIC 06875 [facility] METABOLIC 0 [place] PANEL APOLINAR APOLINAR CALCIUM TOTAL COLLECTIO 28298 [facility] N VENOUS 0 [place] BLOOD APOLINAR APOLINAR VENIPUNCT URE URINE 22688 BATH RAFAEL, 0 COUNTY PUJA D TEST VISUAL COLOR CMPRSN METHS COLLECTIO 38809 [facility], N VENOUS 0 [facility] [place] [address] [facility] BLOOD/URI 0 MEDICAL MEDICAL C ACID CTR CTR ANTINUCLE 49218 [facility] AR 0 MEDICAL MEDICAL ANTIBODIE CTR CTR S LULU RHEUMATOI 36258 [facility] D FACTOR 0 MEDICAL MEDICAL QUALITATI CTR CTR VE SEDIMENTA 23469 [facility] TION RATE 0 MEDICAL MEDICAL RBC CTR CTR NON-AUTOM ATED URINE 01554 BATH RAFAEL, 0 [facility] PUJA D TEST VISUAL COLOR CMPRSN METHS URINE [address] [facility] [address] AR[facility] 0 MEDICAL MEDICAL TEST CTR CTR VISUAL COLOR CMPRSN METHS URNLS DIP 08547 [facility] ST AR[facility] 0 MEDICAL MEDICAL STICK/TAB CTR CTR LET RGNT AUTO W/O MICROSCOP Y CYTP [address] [facility] [address] [facility] CERV/VAG 0 MEDICAL MEDICAL AUTO THIN CTR CTR LAYER PREP MNL SCREEN URINE 57509 BATH CO BATH CO 0 [facility] VISUAL COLOR CMPRSN METHS IADNA 51677 DHS/CO BATH CO CHLAMYDIA 9 [facility] TRACHOMAT BANK ACCT IS AMPLIFIED PROBE TQ CYTP [address] [facility] [address] [facility] CERV/VAG 9 MEDICAL MEDICAL AUTO THIN CTR CTR LAYER PREP MNL SCREEN AMINES 43423 DHS/CO BATH CO VAGINAL 9 [facility] QUALITATI BANK ACCT VE IADNA 43509 DHS/CO BATH CO NEISSERIA 9 [facility] GONORRHOE BANK ACCT AE AMPLIFIED PROBE TQ CYTP 13146 [facility] CERV/VAG 8 MEDICAL MEDICAL AUTO THIN CTR CTR LAYER PREP MNL SCREEN CYTP 70395 ST AR[facility]ITA SLOSS, CERVICAL/ 8 MEDICAL TJ VAGINAL [place] [facility] [address] [facility] HENLY, DISCHARGE 8 CLINIC KIMMY DAY MANAGEMEN T 30 MIN/< CIRCUMCIS 73654 [facility] VALLEJO ION 8 [facility] W/CLAMP/O TH DEV W/BLOCK HX&XM NML 32799 [facility] VALLEJO NB INFT 8 [facility] INITIATIO N DX&TX VAGINAL 47516 [facility] MCBREAIRT DELIVERY 8 CLINIC Y, DEB H ONLY W/POSTPAR CLIF CARE OTHER [address] [facility] MANUALLY 8 MEDICAL MEDICAL ASSISTED CTR CTR DELIVERY OTHER [address] [facility] ARTIFICIA 8 MEDICAL MEDICAL L RUPTURE CTR CTR OF [place]BR[place] PREG [address] [facility]PITA STEVE UTERUS 8 REGIONAL II, [place] REAL TIME D F/U RADIOLOGY TRNSABDL PHYS PER FETUS SRVS [address] ST [facility] STEVE BIOPHYSIC 8 REGIONAL II, [place] AL D PROFILE RADIOLOGY W/O PHYS NON-STRES SRVS S TESTING [address] [facility] BIOPHYSIC 8 MEDICAL MEDICAL AL CTR CTR PROFILE W/O NON-STRES S TESTING INITIAL 50662 [facility] WHITTAKERT OBSERVATI 8 CLINIC Y, DEB H ON CARE/DAY [address] IN[address] [facility] 8 MEDICAL MEDICAL CEFAZOLIN CTR CTR SODIUM [address] [facility] LACTATE 8 MEDICAL MEDICAL INFUSION CTR CTR UP TO 1000 CC [address]23 [facility] RAHULAIRT NONSTRESS 8 CLINIC Y, DEB H TEST THER [address] [facility] PROPH/DX 8 MEDICAL MEDICAL NJX IV CTR CTR PUSH 1ST SBST/DRUG [address] [facility] NONSTRESS 8 MEDICAL MEDICAL TEST CTR CTR RINGERS J7120 [facility] [address] [facility] LACTATE 8 MEDICAL MEDICAL INFUSION CTR CTR UP TO [address] [facility] BACTERIAL 8 MEDICAL MEDICAL CTR CTR QUANTTATI VE COLONY COUNT URINE IV NFUS [address] [facility] HYDRATION 8 MEDICAL MEDICAL EA HR CTR CTR URNLS DIP [address] [facility] 8 MEDICAL MEDICAL STICK/TAB CTR CTR LET RGNT AUTO W/O MICROSCOP Y CUL [address] [facility] PRSMPTV 8 MEDICAL MEDICAL PTHGNC CTR CTR ORGANISM SCRN W/COLONY ESTIMJ [address] [facility] NONSTRESS 8 MEDICAL MEDICAL [place] [address] [facility] STEVE UTERUS 8 REGIONAL II, [place] AFTER 1ST D TRIMEST RADIOLOGY PHYS GESTATION SRVS [address] [facility] STEVE BIOPHYSIC 8 REGIONAL II, [place] AL D PROFILE RADIOLOGY W/O PHYS NON-STRES SRVS S TESTING MANUAL 73.59 Steven Albarran MD DELIV NEC Encounters Encounter Start End Date Code Location Performer Type Date OFFICE 58875 [facility] 7 7 T VISIT 25 MINUTES [facility] [address] [place] [address] T EMERGENCY [address] T VISIT MODERATE SEVERITY OFFICE 72517 [facility] 6 6 T VISIT 15 MINUTES OFFICE 12761 [facility] 6 6 T VISIT [address] [facility] 6 6 T [facility] 6 [facility] T [facility] [place] [facility] [address] [place] [address] [facility] 6 6 T VISIT 25 MINUTES [facility] [address] [place] [address] T [facility] 6 [facility] T EMERGENCY [address] T VISIT MODERATE SEVERITY [facility] [place] [facility] 6 6 [facility] T EMERGENCY 88655 [facility] 6 [facility] EMERGENCY T VISIT PHYS HIGH/URGE NT SEVERITY EMERGENCY 58884 [place] 6 6 [facility] T VISIT HIGH/URGE NT SEVERITY [facility]OSPITAL [place] - 6 6 [facility] T EMERGENCY 45050 [place] 5 5 [facility] T VISIT LOW/MODER SEVERITY [facility] [place] - 5 5 [facility] T EMERGENCY 62544 [facility] EILEEN II 5 5 [facility] EMERGENCY T VISIT PHYS MODERATE SEVERITY EMERGENCY 17052 [facility] [place] 4 4 [facility] EMERGENCY T VISIT PHYS MODERATE SEVERITY [facility]OSP[facility] [place] - 4 4 [facility] T EMERGENCY 77098 [facility] EMERGENCY T VISIT PHYS MODERATE SEVERITY [facility]OSP[facility] [place] - 4 4 [facility] T EMERGENCY 25739 [place] 4 4 [facility] T VISIT LIMITED/M INOR PROB EMERGENCY 94889 EILEEN II EILEEN II 4 4 [facility] T VISIT MODERATE SEVERITY OFFICE 09413 [facility] T VISIT 15 MINUTES OFFICE 63330 [facility] 4 4 T VISIT 15 MINUTES EMERGENCY 44807 SWINE[facility] SWINEY 3 3 [facility]IS[facility] MODERATE SEVERITY EMERGENCY 71433 CELLAROSI CELLAROSI 3 3 - [facility] - [facility] PAT PAT T VISIT MODERATE SEVERITY OFFICE 88942 [facility] 3 3 T VISIT 15 MINUTES EMERGENCY 27559 DORCAS TOSCANO 3 3 [facility] T VISIT MODERATE SEVERITY EMERGENCY 05144 [facility] 3 3 [facility] T VISIT LOW/MODER SEVERITY EMERGENCY 42424 CELLAROSI CELLAROSI 3 3 [facility] PAT PAT T VISIT MODERATE SEVERITY [facility] [place] - 3 3 [facility] T OFFICE 46578 [facility] 3 3 T NEW 45 MINUTES Inpatient [facility] Anita Albarran MD (IN) 3 13:40 3 11:11 [facility] ANITA - 3 3 [facility] - 3 3 [facility] T EMERGENCY 94107 [place] 3 3 [facility] T VISIT HIGH/URGE NT SEVERITY HOSPITAL AN[facility] - 3 3 [facility] 28824 [facility] OUTPATIEN 3 3 KHLOE KHLOE T VISIT 15 MINUTES [facility] 3 3 [facility] T EMERGENCY 69115 [facility] 3 3 [facility] T VISIT HIGH/URGE NT SEVERITY OFFICE 05234 [facility] OUT[facility] 3 3 MONE T NEW 30 MINUTES OFFICE 87501 DICKEY DICKEY OUTPATIEN 2 2 SABINO SABINO T NEW 30 MINUTES OFFICE 73054 [facility] [place] [facility] OUTPATI[facility] 2 2 [facility]ALTH HEALTH T VISIT DEPT DEPT 15 MINUTES OFFICE 67027 [facility] [place] [facility] [place] OUTPATIEN 2 2 HEALTH HEALTH T VISIT DEPT DEPT 10 MINUTES OFFICE 43613 [facility] 2 2 SAY SAY T VISIT [address] [facility] [address] [facility] - 2 2 [facility] 69953 UN[facility]ERSIT OUTPATIEN 2 2 Y T VISIT 5 [facility] UNIVERSIT - 2 2 [facility] - 2 2 [facility] 2 2 [facility] 2 2 Y [facility] T OFFICE 21830 [facility] 2 [facility] UNIVERSIT - 2 2 Y [facility] T EMERGENCY 00730 [place] 2 2 [facility] T VISIT HIGH/URGE NT SEVERITY [facility]OSP[facility] [place] - 2 2 [facility] T OFFICE 95867 [facility] 2 2 Y T VISIT 5 [facility] UNIVERSIT - 2 2 [facility] 2 2 [facility] [place] - 2 2 [facility] T EMERGENCY 12548 [place] 2 2 [facility] T VISIT HIGH/URGE NT SEVERITY EMERGENCY 15677 [place] 2 2 [facility] T VISIT MODERATE SEVERITY [facility] [place] - 2 2 [facility] T OFFICE 90487 ISHA VIEIRA J OUTPATIEN 2 2 T VISIT 15 MINUTES EMERGENCY 09392 [facility] 2 2 N [facility] T VISIT HOSPITA LOW/MODER SEVERITY [facility]OSPITAL [facility] 2 2 N OUTPATIEN COMMUNITY T HOSPITA EMERGENCY 54795 MINISTERIO MANDEL 2 2 TIARA TIARA DEPARTMEN T VISIT MODERATE SEVERITY OFFICE 68777 ISHA VIEIRA J OUTPATIEN 2 2 T NEW 45 MINUTES OFFICE 59425 AMY GALVAN MAR OUTPATIEN 1 1 COUNTY T VISIT [address] [facility] - [address] T EMERGENCY 47938 [facility] [address] T VISIT MODERATE SEVERITY EMERGENCY 97930 [facility] 1 1 [place] VISIT HIGH EMERGENCY SEVERITY& THREAT FUNCJ OFFICE 71184 [facility] HERNANDEZ OUTPATIEN 1 1 [facility] T VISIT [address] [facility] - [address] T EMERGENCY 30009 [facility] [address] T VISIT HIGH/URGE NT SEVERITY OFFICE 69431 [facility] BROMAGEN OUTPATIEN 1 1 [facility] T VISIT 15 MINUTES HOSPITAL [facility] - 1 1 [facility] OUTPATIEN APOLINAR T EMERGENCY 49210 [facility] 1 1 MICHAEL PHI DEPARTMEN EMERGENCY T VISIT PHYS MODERATE SEVERITY [facility]OSPITAL ST [facility] - [address] T OFFICE 39061 [facility] JEANINE OUTPATIEN 1 1 [facility] SANDY T VISIT WOMEN'S 15 CARE MINUTES OFFICE 11232 [facility] BROMAGEN OUTPATIEN 1 1 [facility] KIMBERLY T VISIT 15 MINUTES OFFICE 70106 [facility] BROMAGEN OUTPATIEN 1 1 [facility] T VISIT [address] [facility] 0 0 REGIONAL DEPARTMEN T VISIT EMERGENCY HIGH/URGE NT SEVERITY HOSPITAL ST [facility] - [address] EMER[address] [facility] [address] T VISIT LOW/MODER SEVERITY OFFICE 73813 [facility] OUTPATIEN 0 0 [facility] KIMBERLY T VISIT 15 MINUTES OFFICE 42067 [facility] KIMBERLY T VISIT [address] [facility] - [address] EMER[address] [facility] [address] T VISIT LOW/MODER SEVERITY EMERGENCY [address] [facility] [address] T VISIT LOW/MODER SEVERITY HOSPITAL ST [facility] - [address] [facility] [facility] - [address] EMERGENCY [address] [facility] [address] T VISIT HIGH/URGE NT SEVERITY OFFICE 55421 JEANINE OUTPATIEN 0 0 [facility] SANDY T VISIT WOMEN'S 10 CARE MINUTES EMERGENCY [address] [facility] JALALON 0 0 REGIONAL SIE DEPARTMEN T VISIT EMERGENCY HIGH/URGE NT SEVERITY HOSPITAL ST [facility] - [address] EMER[address] [facility] [address] T VISIT LOW/MODER SEVERITY OFFICE 51975 [facility] MOMO OUTPATIEN 0 0 CLINIC CE T VISIT 15 MINUTES OFFICE 45978 FREDDY SANDOVAL CONSULTAT 0 0 HOPE DON ION IIIPSC NEW/ESTAB N02 PATIENT 30 MIN OFFICE 58904 [place] BROMAGEN OUTPATIEN 0 0 [facility] KIMBERLY T VISIT 15 MINUTES OFFICE 16573 [facility] MOMO OUTPATIEN 0 0 CLINIC CE T VISIT 15 MINUTES OFFICE 14467 [facility] BARR OUTPATIEN 0 0 CLINIC CE T VISIT 15 MINUTES EMERGENCY 95459 [facility] DEPT 0 0 EMERGENCY CAR VISIT SERVICES HIGH SEVERITY& THREAT FUNCJ OFFICE 82398 [facility] OUTPATIEN 0 0 CLINIC CE T VISIT 15 MINUTES OFFICE 58649 [facility] BARR, OUTPATIEN 0 0 CLINIC ENAWGAW T VISIT 15 MINUTES OFFICE 98335 [facility] BARR, CONSULTAT 0 0 CLINIC ENAWGAW ION NEW/ESTAB PATIENT [address] [facility] - 0 0 MEDICAL OUTPATIEN CTR T PERIODIC 59320 BATH CO BATH CO PREVENTIV 0 0 [facility] E [facility] C[facility] CENTER PATIENT 18-[address] [facility] - 0 0 MEDICAL OUTPATIEN CTR T [facility]PITAL [facility] - 0 0 MEDICAL OUTPATIEN CTR T OFFICE 32832 [facility], OUTPATIEN 0 0 [facility] PJUA D T VISIT [address] BIBI 0 0 [facility] T VISIT HIGH/URGE NT SEVERITY HOSPITAL ST BIBI - [address] [facility] T OFFICE 85685 [place] OUTPATIEN 0 0 [facility] PUJA D T VISIT 15 MINUTES OFFICE 56684 [place] [place], OUTPATIEN 0 0 [facility] PUJA D T VISIT [address] [facility] - 0 0 [facility]EN CTR T OFFICE 47970 [place], OUTPATIEN 0 0 [facility] PUJA D T VISIT [address] [facility] - 0 0 [facility] OUTPATIEN CTR T EMERGENCY 65552 [facility] 0 0 [facility]IONAL R, DEPARTMEN [place] T VISIT EMERGENCY AM HIGH/URGE PHYS NT SEVERITY EMERGENCY 91240 [facility] 0 0 [facility] T VISIT MODERATE SEVERITY [facility] - 0 0 [facility] OUTPATIEN CTR T OFFICE 56617 [facility] OUTPATIEN 0 0 [facility] VISIT CENTER CENTER 15 MINUTES OFFICE 91476 [place], OUTPATIEN 9 9 [facility] NEW 20 MINUTES PERIODIC 54817 DHS/CO BATH CO PREVENTIV 9 9 [facility] PATIENT [facility]ANK ACCT 18-39 [facility] - 9 9 MEDICAL OUTPATIEN [facility] [place] [address] [address] [facility] OUTPATIEN [facility] [place] [address] 8 MEDICAL INPATIENT CTR OFFICE 57709 [facility] OUTPATIEN 8 8 CLINIC Y, DEB H T VISIT 15 MINUTES [facility] 8 8 MEDICAL OUTPATIEN CTR T OFFICE 29602 [facility] OUTPATI 8 8 MEDICAL T VISIT CTR 15 MINUTES [facility] [place] [address] [address]EN [facility] T [facility] 8 8 MEDICAL OUTPATIEN CTR T OFFICE 94254 [facility] OUTPATI 8 8 MEDICAL T VISIT 5 CTR MINUTES [facility] 8 8 MEDICAL OUTPATIEN CTR T OFFICE 01484 [facility] OUT[facility] 8 8 CLINIC Y, DEB H T VISIT 15 MINUTES OFFICE 14065 [facility] OUT[facility]IEN 8 8 CLINIC Y, DEB H T VISIT 15 MINUTES
--- OUTSIDE RECORDS SUMMARY | 2016-12-23 04:57 | External Medical Summary Rpt ---
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 [facility] NONSTRESS 2 Y Y TEST [facility] CULTURE 73205 [facility] [address] [place] [address] QUANTTATI VE COLONY COUNT URINE COLLECTIO 79616 [place] N VENOUS 2 [facility] VENIPUNCT URE INJECTION J0696 [facility] YOUNGON 2 [facility]PITAL NE SODIUM PER 250 MG IADNA 14984 [place] NEISSERIA 2 [facility] [place] [address] [place] INFUSION [address] [facility] THERAPY/P HOSPITAL HOSPITAL ROPHYLAXI S /DX 1ST TO 1 HR URNLS DIP [address] STICK/TAB HOSPITAL HOSPITAL LET REAGENT AUTO MICROSCOP Y URINE 34619 [place] 2 [facility] HOSPITAL VISUAL COLOR CMPRSN METHS BLOOD 84428 [facility] COUNT [address] [place] [address] HOSPITAL AUTO&AUTO DIFRNTL WBC IADNA 95337 [facility] CHLAMYDIA 2 [facility] TRACHOMAT IS DIRECT PROBE TQ COMPREHEN 35875 [facility] [address] HOSPITAL PANEL [address] [facility] NONSTRESS 2 Y Y TEST HOSPITAL HOSPITAL INJECTION J2405 [address] HOSPITAL ON HCL PER 1 MG ELECTROEN 96295 [facility] CEPHALOGR 2 Y Y AM W/REC [facility] HOSPITAL AWAKE&SIDRA WSY COMPREHEN 55998 [place] [facility] [address] [place] [address] HOSPITAL PANEL BLOOD 11204 [facility] COUNT [address] [place] [address] HOSPITAL AUTO&[place] [address] [place] LIPASE [address] [place] [address] [place] [address] [place] AMYLASE 2 [facility] H[facility]PITAL URNLS DIP 97883 [facility] PIPER[address] STICK/TAB HOSPITAL HOSPITAL LET REAGENT AUTO MICROSCOP Y THER 74142 [place] PROPH/DX 2 [facility] NJX IV [facility] HOSPITAL PUSH SINGLE/1S T SBST/DRUG COLLECTIO 18261 [place] N VENOUS 2 [facility] [place] [address] [place] SCALF SHAHBAZ 2 RADIOLOGY UTERUS LIMITED 1/> FETUSES CULTURE 61580 [place] BACTERIAL 2 [facility] QUANTTATI VE COLONY COUNT URINE URNLS DIP 25436 [place] 2 [facility] HOSPITAL [place] [address] LAB COR LAB COR ESTRIOL 2 [facility] PREG 17561 ISHA VIEIRA J UTERUS 2 REAL TIME F/U TRNSABDL PER FETUS ALPHA-FET 23029 LAB COR LAB COR OPROTEIN 2 [facility] [place] [address] LAB COR LAB COR 2 [facility] GONADOTRO 01955 LAB COR LAB COR PIN 2 [facility] CHORIONIC [facility] HOLDING QUANTITAT KOBE CYTP 81732 PATHOLOGY ALEX[facility] CERVICAL/ 2 & NANI VAGINAL CYTOLOGY REQ LAB INTERP PHYSICIAN CYTP C/V 68277 PATHOLOGY [facility] AUTO THIN 2 & NANI LYR CYTOLOGY PREPJ SCR LAB [place] P[place] 65992 ISHA VIEIRA J UTERUS 2 REAL TIME W/IMAGE DCMTN TRANSVAG IADNA 34235 PATHOLOGY ALEXUS NEISSERIA 2 & NANI CYTOLOGY GONORRHOE LAB AE AMPLIFIED PROBE TQ IADNA 95207 PATHOLOGY ALEXUS CHLAMYDIA 2 & NANI CYTOLOGY TRACHOMAT LAB IS AMPLIFIED PROBE TQ AMB A0427 [facility] SERVICE 2 RODRIGUE HUSAIN [facility] EMERGENCY TRANSPORT LEVEL 1 GROUND A0425 [facility] MILEAGE 2 RODRIGUE HUSA[facility] PER [facility] STATUTE MILE URINE [address] [facility] [address] VISUAL COLOR CMPRSN METHS RADIOLOGI 70292 ST ARPITA ONEIDA C 1 REGIONAL SANDY EXAMINATI RADIOLOG ON CHEST SINGLE VIEW FRONTAL ECG [address] [facility] ROUTINE [address] W/LEAST 12 LDS TRCG ONLY W/O I&R ECG 35378 ST [facility] BOOKER ROUTINE 1 MEDICAL SANDY ECG CENTER W/LEAST 12 [facility] I&R ONLY THERAPEUT 42752 [facility] HERNANDEZ IC 1 [facility] OZZY PROPHYLAC TIC/DX INJECTION SUBQ/IM THER [address] [facility] PROPH/DX [address] MED[address] NJX IV [address] CT PUSH SINGLE/1S T SBST/[place] [address] [facility] INFUSION [address] EACH ADDITIONA L HOUR RADIOLOGI 13416 ST ARPITA STEVE II C EXAM 1 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 CHEST 2 RADIOLOG VIEWS FRONTAL&L ATERAL BLOOD [address] [facility] COUNT [address] AUTO&AUTO DIFRNTL WBC COLLECTIO [address] [facility] N VENOUS [address] VENIPUNCT URE INJECTION J1885 [facility] [facility] [address] TROMETHAM INE PER [address] [facility] [address] VISUAL COLOR CMPRSN METHS COMPREHEN [address] [facility] SIVE [address] [place] [address] [facility] INFLUENZA 1 MEDICAL MEDICAL A/B EACH CT CT URNLS DIP [address] [facility] 1 MEDICAL MEDICAL STICK/TAB CT CT LET REAGENT AUTO MICROSCOP Y CYTP [address] [facility] CERV/VAG [address]ICAL MED[address] AUTO [address]IN [address] LAYER PREP MNL SCREEN URINE 92903 [facility] BROMAGEN 1 COUNTY KIMBERLY TEST VISUAL COLOR CMPRSN METHS URNLS DIP 60283 [facility] 1 [facility] KIMBERLY STICK/TAB LET RGNT AUTO W/O MICROSCOP Y COMPREHEN [address] [facility] SIVE [address] PANEL BLOOD [address] [facility] COUNT [address] AUTOMATED CULTURE [address] [facility] BACTERIAL [address] AEROBIC W/ID ISOLATES SUSCEPTIB [address] [facility] LTY STDY [address] IAL MICRO/AGA R DILUTJ THERAPEUT [address] [facility] IC [address] [place] [address] [facility] INFUSION 0 MEDICAL MEDICAL THERAPY/P CT CT ROPHYLAXI S /DX 1ST TO [address] [place] [address] [facility] INFUSION [address] [place] [address] [facility] INFUSION [address] PROPHYLAX IS/DX EA HOUR BLOOD [address] [facility] COUNT [address] MCRSCP W/MNL DIFRNTL WBC COUNT CUL BACT 15180 [facility] AEROBIC [address] METHS DEFINITIV E EA ISOL INJECTION J2175 [facility] [address] E HCL PER [address] [facility] N VENOUS [address] VENIPUNCT URE INJECTION J2405 [facility] [address] ON HCL PER 1 MG INCISION 30862 [facility] DIJENG & 0 REGIONAL SES DRAINAGE ABSCESS EMERGENCY COMPLICAT ED/MULTIP LE ORTHOPANT 88435 FREDDY SANDOVAL OGRAM [address] [address] [place] [address] [place] JAM HEAD/BRAI 0 RADIOLOGY N W/O CONTRAST MATERIAL ELECTROEN [address] [facility] CEPHALOGR 0 MEDICAL MEDICAL AM W/REC CTR CTR AWAKE&ASL EEP ELECTROEN 12332 [facility] MOMO, CEPHALOGR 0 CLINIC ENAWGAW AM W/REC AWAKE&SIDRA WSY IADNA 90642 BATH CO BATH CO NEISSERIA 0 [facility] GONORRHOE AE AMPLIFIED PROBE TQ IADNA 59713 [facility] CO CHLAMYDIA [facility] TRACHOMAT IS AMPLIFIED PROBE TQ URINE 87237 [facility] BATH CO 0 [facility] CENTER VISUAL COLOR CMPRSN METHS COMPREHEN 71270 [facility] SIVE 0 MEDICAL [place] [address] [facility] HEAD/BRAI 0 MEDICAL MEDICAL N W/O & CTR CTR W/CONTRAS T MATERIAL COLLECTIO 09489 [facility] N VENOUS 0 MEDICAL MEDICAL BLOOD CTR CTR VENIPUNCT URE URINE 85813 [facility] 0 MEDICAL MEDICAL TEST CTR CTR VISUAL COLOR CMPRSN METHS URNLS DIP 59904 YUDY [facility], 0 COUNTY PUJA D STICK/TAB LET REAGENT AUTO MICROSCOP Y BLOOD 86288 [facility] COUNT 0 MEDICAL MEDICAL COMPLETE CTR CTR AUTO&AUTO DIFRNTL WBC COLLECTIO 82187 YUDY H[facility], N VENOUS 0 [facility] PUJA [place] [address] [facility] THYROID 0 MEDICAL MEDICAL STIMULATI CTR CTR NG HORMONE TSH URINE 34233 [facility], 0 COUNTY PUJA D TEST VISUAL COLOR CMPRSN METHS BASIC 09305 [facility] METABOLIC 0 [place] PANEL APOLINAR APOLINAR CALCIUM TOTAL COLLECTIO 53592 [facility] N VENOUS 0 [place] BLOOD APOLINAR APOLINAR VENIPUNCT URE BLOOD 11048 [facility] COUNT 0 [place] COMPLETE APOLINAR APOLINAR AUTO&AUTO DIFRNTL WBC GONADOTRO 45888 [facility] PIN 0 [place] CHORIONIC APOLINAR APOLINAR QUALITATI VE URNLS DIP 65089 [facility] 0 [place] STICK/TAB APOLINAR APOLINAR LET RGNT AUTO W/O MICROSCOP Y URINE 48244 [facility], 0 [place] PUJA D TEST VISUAL COLOR CMPRSN METHS SEDIMENTA 18804 [facility] TION RATE 0 MEDICAL MEDICAL RBC CTR CTR NON-AUTOM ATED COLLECTIO 02129 Y[facility], N VENOUS 0 COUNTY PUJA D BLOOD VENIPUNCT URE RHEUMATOI 20415 [facility] D FACTOR 0 MEDICAL MEDICAL QUALITATI CTR CTR VE ANTINUCLE 72169 [facility] AR 0 MEDICAL MEDICAL [place] [address] [facility] BLOOD/URI 0 MEDICAL MEDICAL C ACID CTR CTR URINE 02994 [facility], 0 [facility] PUJA D TEST VISUAL COLOR CMPRSN METHS URINE 77217 [facility] 0 MEDICAL MEDICAL TEST CTR CTR VISUAL COLOR CMPRSN METHS URNLS DIP 41891 [facility] 0 MEDICAL MEDICAL STICK/TAB CTR CTR LET RGNT AUTO W/O MICROSCOP Y URINE 16316 [facility] CO 0 [facility] VISUAL COLOR CMPRSN METHS CYTP 38060 [facility] CERV/VAG 0 MEDICAL MEDICAL AUTO THIN CTR CTR LAYER PREP MNL SCREEN CYTP 84291 [facility] CERV/VAG 9 MEDICAL MEDICAL AUTO THIN CTR CTR LAYER PREP MNL SCREEN IADNA 58097 [facility]/CO BATH CO CHLAMYDIA 9 [facility] TRACHOMAT BANK ACCT IS AMPLIFIED PROBE TQ IADNA 73881 [facility]/CO BATH CO NEISSERIA 9 [facility] GONORRHOE BANK ACCT AE AMPLIFIED PROBE TQ AMINES 51848 [facility]/CO BATH CO VAGINAL 9 [facility] QUALITATI BANK ACCT VE CYTP 66828 [facility] SLO, CERVICAL/ 8 [facility] REQ INTERP PHYSICIAN CYTP 73137 [facility] CERV/VAG 8 MEDICAL MEDICAL AUTO THIN CTR CTR LAYER PREP MNL SCREEN CIRCUMCIS 72145 [facility] VALLEJO, ION 8 CLINIC KIMMY W/CLAMP/O TH DEV W/[facility] 99939 [facility] HENLY, DISCHARGE 8 CLINIC KIMMY DAY MANAGEMEN T 30 MIN/< HX&XM NML 52299 [facility] VALLEJO, NB INFT 8 CLINIC [place] INITIATIO N DX&TX OTHER [address] [facility] MANUALLY 8 MEDICAL MEDICAL ASSISTED CTR CTR DELIVERY OTHER [address] [facility] ARTIFICIA 8 MEDICAL MEDICAL L RUPTURE CTR CTR OF [facility] VAGINAL 24754 [facility] MCBREAIRT DELIVERY 8 CLINIC Y, DEB H ONLY W/POSTPAR CLIF CARE 16838 ST [facility] STEVE BIOPHYSIC 8 REGIONAL II, [place] AL D PROFILE RADIOLOGY W/O PHYS NON-STRES SRVS S TESTING [place] PREG [address] [facility] STEVE UTERUS 8 REGIONAL II, [place] REAL TIME D F/U RADIOLOGY TRNSABDL PHYS PER FETUS SRVS 18530 ST AR[facility]ITA [place], BIOPHYSIC 8 REGIONAL OLLIE B AL PROFILE RADIOLOGY W/O PHYS NON-STRES SRVS S TESTING INJECTION J0690 [facility] [address] [facility] 8 MEDICAL MEDICAL CEFAZOLIN CTR CTR SODIUM 500 MG 81183 [facility] MCBREAIRT NONSTRESS 8 CLINIC Y, DEB H TEST RINGERS J7120 ST [facility] LACTATE 8 MEDICAL MEDICAL INFUSION CTR CTR UP TO 1000 CC INITIAL 82046 [facility] MCBREAIRT OBSERVATI 8 CLINIC Y, DEB H ON CARE/DAY [address] D[address] [facility] 8 MEDICAL MEDICAL STICK/TAB CTR CTR LET RGNT AUTO W/O MICROSCOP Y RINGERS J7120 [facility] [address] [facility] LACTATE 8 MEDICAL MEDICAL INFUSION CTR CTR UP TO [address] [facility] PROPH/DX 8 MEDICAL MEDICAL NJX IV CTR CTR PUSH 1ST SBST/DRUG [address] [facility] NONSTRESS 8 MEDICAL MEDICAL TEST CTR CTR [place] NFUS [address] [facility] HYDRATION 8 MEDICAL MEDICAL EA HR CTR CTR CULTURE [address] [facility] BACTERIAL 8 MEDICAL MEDICAL CTR CTR QUANTTATI VE COLONY COUNT URINE CUL [address] [facility] PRSMPTV 8 MEDICAL MEDICAL PTHGNC CTR CTR ORGANISM SCRN W/COLONY ESTIMJ [address] [facility] NONSTRESS 8 MEDICAL MEDICAL TEST CTR CTR [address] [facility] BIOPHYSIC 8 MEDICAL MEDICAL AL CTR CTR PROFILE W/O NON-STRES S TESTING [place] PREG [address]54[address] [facility] STEVE UTERUS 8 REGIONAL II, [place] AFTER 1ST D TRIMEST RADIOLOGY PHYS GESTATION SRVS Encounters Encounter Start End Date Code Location Performer Type Date OFFICE 56558 [facility] 7 7 T VISIT 25 MINUTES [facility] [address] T VISIT MODERATE SEVERITY OFFICE 69651 [facility] 6 6 T VISIT 15 MINUTES OFFICE 01582 [facility] 6 6 T VISIT 15 MINUTES OFFICE 38897 [facility] 6 6 T VISIT 15 MINUTES [facility] 6 [facility] [address] T OFFICE 03779 [facility] 6 6 T VISIT 25 MINUTES [facility] 6 [facility]ER[facility]ENC[facility] 49725 [facility] 6 6 [facility] EMERGENCY T VISIT PHYS HIGH/URGE NT SEVERITY EMERGENCY [address] T VISIT MODERATE SEVERITY [facility] [address] [place] [place] [address] T EMERGENCY 82198 [place] 6 6 [facility] T VISIT HIGH/URGE NT SEVERITY HOSPITAL [place] - 5 5 [facility] T EMERGENCY 07070 [facility] 5 [facility] EM[facility] T VISIT PHYS MODERATE SEVERITY EMERGENCY 15928 [place] 5 5 [facility] T VISIT LOW/MODER SEVERITY [facility]OSPITAL [place] - 4 4 [facility]ER[facility] 20502 [facility] 4 4 [facility] EM[facility] T VISIT PHYS MODERATE SEVERITY EMERGENCY 46772 [facility] T VISIT PHYS MODERATE SEVERITY [facility]OSPITAL [place] - 4 4 [facility] EMER[facility] 63353 [place] 4 4 [facility] VISIT LIMITED/M INOR PROB EMERGENCY 58621 EILEEN II EILEEN II 4 4 [facility] T VISIT MODERATE SEVERITY OFFICE 23486 [facility] 4 T VISIT 15 MINUTES OFFICE 91451 [facility] 4 4 T VISIT 15 MINUTES EMERGENCY 69560 SWINEY SWINEY 3 3 [facility] VISIT MODERATE SEVERITY EMERGENCY 87692 CELLAROSI CELLAROSI 3 3 - YORBA - YORBA [facility] PAT PAT T VISIT MODERATE SEVERITY OFFICE 85976 [facility] OUT[facility] 3 3 T VISIT 15 MINUTES EMERGENCY 44899 DORCAS TOSCANO 3 3 [facility]W [facility] T VISIT MODERATE SEVERITY [facility] - 3 3 [facility] EMERGENC[facility] 74250 [place] 3 3 [facility] T VISIT LOW/MODER SEVERITY EMERGENCY 30048 CELLAROSI CELLAROSI 3 3 - YORBA - YORBA [facility] PAT T VISIT MODERATE SEVERITY OFFICE 11714 [facility] OUTPATIEN 3 3 T NEW 45 MINUTES HOSPITAL ANITA - 3 3 [facility] INPATIENT INC EMERGENCY 25883 [place] 3 3 [facility] T VISIT HIGH/URGE NT SEVERITY [facility] 3 3 [facility] ANITA - 3 3 [facility] OUT[facility]IEN [facility] T OFFICE 20501 LORENAPE[facility] OUTPATIEN 3 3 KHLOE KHLOE T VISIT 15 MINUTES EMERGENCY 41011 [facility] 3 3 [facility] T VISIT HIGH/URGE NT SEVERITY [facility] [place] - 3 3 [facility] 72030 [place] OUT[facility]IEN 3 3 MONE T NEW 30 MINUTES OFFICE 43090 DICKEY DICKEY OUTPATIEN 2 2 SABINO SABINO T NEW 30 MINUTES OFFICE 38984 [place] [place] [facility] [place] [facility] 2 2 [facility] T VISIT DEPT DEPT 15 MINUTES OFFICE 62282 [place] [facility] [place] [facility] 2 2 [facility] T VISIT DEPT DEPT 10 MINUTES OFFICE 65303 [place]N QUINN OUTPATIEN 2 2 SAY SAY T VISIT [address] [place] - 2 2 MEDICAL OUTPATIEN [facility] UNIVERS[facility] 2 2 Y [facility] T OFFICE 06333 [facility] 2 2 Y T VISIT [address] [facility] UNIVERSIT - 2 2 [facility] 2 2 [facility] UNIV[facility] 2 2 Y [facility] T OFFICE 63946 [facility] 2 2 HEALTH MONE T NEW 30 [facility] UN[facility]ERS[facility] 2 2 Y [facility] T EMERGENCY 75401 [place] 2 2 [facility] T VISIT HIGH/URGE NT SEVERITY [facility] [place] [facility] 2 2 [facility] OFF[facility] 91669 [facility] 2 2 Y T VISIT [address] [place] [address] UNIVERSIT - 2 2 Y [facility] UNIVERS[facility] 2 2 Y [facility] T EMERGENCY 40475 [facility] 2 [facility] T VISIT HIGH/URGE NT [facility]VERITY [facility] [place] - 2 2 [facility] [place] [facility] 2 2 [facility]GENC[facility] [address]239 [place] 2 2 [facility] T VISIT MODERATE SEVERITY OFFICE 78264 ISHA Gillis OUTPATIEN 2 2 T VISIT 15 MINUTES EMERGENCY 90814 [facility] [address] [facility] T VISIT HOSPITA LOW/MODER SEVERITY HOSPITAL [facility] - 2 2 N [facility] T HOSPITA EMERGENCY 33796 MINISTERIO MANDEL 2 2 [facility] T VISIT MODERATE SEVERITY OFFICE 41393 ISHA Gillis OUTPATIEN 2 2 T NEW 45 MINUTES OFFICE 85498 [facility] OUT[address] T VISIT 10 MINUTES HOSPITAL [place] [address] EMER[address]Y [address] [facility] DEPT 1 1 [facility] VISIT HIGH EMERGENCY SEVERITY& THREAT FUNCJ EMERGENCY [address] [facility] [address] T VISIT MODERATE SEVERITY OFFICE 00793 [facility]ATH HERNANDEZ OUTPATIEN 1 1 [facility] OZZY T VISIT [address] [place] - [address] EMER[address] [facility] HICKS 1 1 [facility] T VISIT EMERGENCY HIGH/URGE NT SEVERITY OFFICE 60376 [facility] BROMAGEN OUTPATIEN 1 1 [facility] [place] T VISIT [address] MTZ - 1 1 [place] [facility] T EMERGENCY 50085 [facility] [address] [facility]IS[facility] MODERATE SEVERITY OFFICE 80030 JEANINE OUTPATIEN 1 1 [facility] SANDY T VISIT WOMEN'S [address] [facility] - [address] T OFFICE 61445 [facility] BR[facility]AG[facility] OUTPATIEN 1 1 [facility] [place] T VISIT 15 MINUTES OFFICE 86626 [facility] BR[facility]AG[facility] OUTPATIEN 1 1 [facility] [place] T VISIT [address] [facility] HICKS 0 0 [facility] T VISIT EMERGENCY HIGH/URGE NT SEVERITY HOSPITAL ST [facility] - [address] T EMERGENCY [address] [facility] 0 [address] T VISIT LOW/MODER SEVERITY OFFICE 07622 [facility] OUTPATIEN 0 0 [facility] KIMBERLY T VISIT 15 MINUTES OFFICE 35633 [facility] OUTPATIEN 0 0 [facility] T VISIT [address] [facility] - [address] [facility] [address] T VISIT LOW/MODER SEVERITY EMERGENCY [address] [facility] [address] T VISIT LOW/MODER SEVERITY HOSPITAL [facility] - [address] EMERGENCY [address] [facility] [address] T VISIT HIGH/URGE NT SEVERITY [facility] - [address] [facility] [facility] - [address] T OFFICE 39600 [facility] OUTPATIEN 0 0 [facility] SANYD T VISIT WOMEN'S 10 CARE MINUTES EMERGENCY [address] [facility] [address] T VISIT LOW/MODER SEVERITY EMERGENCY 32693 [facility] JALALON 0 0 REGIONAL SIE DEPARTMEN T VISIT EMERGENCY HIGH/URGE NT SEVERITY OFFICE 26394 [facility] OUTPATIEN 0 0 CLINIC CE T VISIT 15 MINUTES OFFICE 77783 [facility] 0 0 [facility] N02 PATIENT 30 MIN OFFICE 24889 [facility] OUTPATIEN 0 0 [facility] T VISIT 15 MINUTES OFFICE 57186 [facility] OUTPATIEN 0 0 CLINIC CE T VISIT 15 MINUTES OFFICE 66772 [facility] OUTPATIEN 0 0 CLINIC CE T VISIT 15 MINUTES EMERGENCY 87258 [facility] DEPT 0 0 EMERGENCY CAR VISIT SERVICES HIGH SEVERITY& THREAT FUNCJ OFFICE 04650 [facility] OUTPATIEN 0 0 CLINIC CE T VISIT 15 MINUTES OFFICE 58906 [facility], OUTPATIEN 0 0 CLINIC ENAWGAW T VISIT 15 MINUTES OFFICE 41592 [facility] BARR, CONSULTAT 0 0 CLINIC ENAWDUTCHW ION NEW/ESTAB PATIENT [address] [facility] - 0 [address] [facility]EN [facility] T PERIODIC 01612 [facility] CO BATH CO PREVENTIV [address] [facility] CENTER PATIENT 18-[address] [facility] - 0 0 MEDICAL OUTPATIEN CTR T [facility] - 0 0 MEDICAL OUTPATIEN CTR T OFFICE 91700 [facility], OUTPATIEN 0 0 [facility] PUJA D T VISIT 15 MINUTES EMERGENCY 55208 [facility] 0 [facility] EMERGENCY T VISIT PHYS INC HIGH/URGE NT SEVERITY HOSPITAL BIBI - 0 0 [place] OUT[facility]IEN [facility]OLIN[facility] T OFFICE 07643 [facility], OUTPATIEN 0 0 [facility] PUJA D T VISIT [address] [facility] - 0 0 MEDICAL OUTPATIEN CTR T OFFICE 42128 [facility], OUTPATIEN 0 0 [facility] PUJA D T VISIT 15 MINUTES OFFICE 02872 [facility], OUTPATIEN 0 0 [facility] PUJA D T VISIT [address] [facility] - 0 0 MEDICAL OUTPATIEN CTR T EMERGENCY [address]6467 [facility] 0 [address] T VISIT MODERATE SEVERITY EMERGENCY 90016 [facility] T VISIT EMERGENCY AM HIGH/URGE PHYS NT SEVERITY [facility]PITAL [facility] - 0 0 MEDICAL OUTPATIEN CTR T OFFICE 31112 BATH CO [facility]ATH CO OUTPATIEN 0 0 [facility] T VISIT CENTER CENTER 15 MINUTES OFFICE 76299 [facility], [facility] 9 [facility] PERIODIC 22902 [facility]/CO BATH CO PREVENTIV 9 9 [facility] PATIENT [facility]ANK ACCT 18-39 [facility] - 9 9 MEDICAL OUTPATIEN CTR [facility] 8 8 MEDICAL OUTPATIEN CTR [facility] 8 8 MEDICAL INPATIENT CTR OFFICE 00325 [facility] [place] OUTPATIEN 8 8 CLINIC Y, DEB H T VISIT 15 MINUTES HOSPITAL [facility] 8 8 MEDICAL OUTPATIEN CTR [facility] 8 8 MEDICAL OUTPATIEN CTR T OFFICE 90602 [facility] 8 8 MEDICAL T VISIT CTR 15 MINUTES [facility] 8 8 MEDICAL OUTPATIEN [facility] 8 8 MEDICAL OUTPATIEN CTR T OFFICE 33325 [facility] 8 8 MEDICAL T VISIT 5 CTR MINUTES OFFICE 18771 [facility] [place] OUTPATIEN 8 8 CLINIC Y, DEB H T VISIT 15 MINUTES OFFICE 51042 [facility] [place] OUTPATIEN 8 8 CLINIC Y, DEB H T VISIT 15 MINUTES
--- OUTSIDE RECORDS SUMMARY | 2016-12-23 04:57 | External Medical Summary Rpt ---
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 SIVE 0 MEDICAL [place] [address] [facility] HEAD/BRAI 0 MEDICAL MEDICAL N W/O & CTR CTR W/CONTRAS T MATERIAL COLLECTIO 71148 [facility] N VENOUS 0 MEDICAL MEDICAL BLOOD CTR CTR VENIPUNCT URE URINE 17799 [facility] 0 MEDICAL MEDICAL TEST CTR CTR VISUAL COLOR CMPRSN METHS URNLS DIP 89356 [facility], 0 COUNTY PUJA D STICK/TAB LET REAGENT AUTO MICROSCOP Y BLOOD 49454 [facility] COUNT 0 MEDICAL MEDICAL COMPLETE CTR CTR AUTO&AUTO DIFRNTL WBC COLLECTIO 09888 [facility]UD[facility], N VENOUS 0 [facility] PUJA [place] [address] [facility] THYROID 0 MEDICAL MEDICAL STIMULATI CTR CTR NG HORMONE TSH URINE 07501 [facility], 0 [facility] PUJA D TEST VISUAL COLOR CMPRSN METHS BASIC 43342 [facility] METABOLIC 0 [place] PANEL APOLINAR APOLINAR CALCIUM TOTAL COLLECTIO 01088 [facility] N VENOUS 0 [place] BLOOD APOLINAR APOLINAR VENIPUNCT URE BLOOD 16716 [facility] COUNT 0 [place] COMPLETE APOLINAR APOLINAR AUTO&AUTO DIFRNTL WBC GONADOTRO 40290 [facility] PIN 0 [place] CHORIONIC APOLINAR APOLINAR QUALITATI VE URNLS DIP 56663 [facility] 0 [place] STICK/TAB APOLINAR APOLINAR LET RGNT AUTO W/O MICROSCOP Y URINE 78506 [facility], 0 [facility] PUJA D TEST VISUAL COLOR CMPRSN METHS SEDIMENTA 18341 [facility] TION RATE 0 MEDICAL MEDICAL RBC CTR CTR NON-AUTOM ATED COLLECTIO 12037 [facility], N VENOUS 0 [facility] PUJA D BLOOD VENIPUNCT URE RHEUMATOI 92800 [facility] D FACTOR 0 MEDICAL MEDICAL QUALITATI CTR CTR VE ANTINUCLE 60815 [facility] AR 0 MEDICAL MEDICAL [place] [address] [facility] BLOOD/URI 0 MEDICAL MEDICAL C ACID CTR CTR URINE 52427 [facility], 0 [facility] PUJA D TEST VISUAL COLOR CMPRSN METHS URINE 68800 [facility] 0 MEDICAL MEDICAL TEST CTR CTR VISUAL COLOR CMPRSN METHS URNLS DIP 13374 [facility] 0 MEDICAL MEDICAL STICK/TAB CTR CTR LET RGNT AUTO W/O MICROSCOP Y URINE 37535 BATH CO BATH CO 0 [facility] TEST [facility] VISUAL COLOR CMPRSN METHS CYTP 19448 [facility] CERV/VAG 0 MEDICAL MEDICAL AUTO THIN CTR CTR LAYER PREP MNL SCREEN CYTP 13036 [facility] CERV/VAG 9 MEDICAL MEDICAL AUTO THIN CTR CTR LAYER PREP MNL SCREEN IADNA 47161 DHS/CO BATH CO CHLAMYDIA 9 [facility] TRACHOMAT BANK ACCT IS AMPLIFIED PROBE TQ IADNA 78793 DHS/CO BATH CO NEISSERIA 9 [facility] GONORRHOE BANK ACCT AE AMPLIFIED PROBE TQ AMINES 17182 DHS/CO BATH CO VAGINAL 9 [facility] QUALITATI BANK ACCT VE CYTP 56024 [facility] SLO, CERVICAL/ 8 [facility] REQ INTERP PHYSICIAN CYTP 00063 [facility] CERV/VAG 8 MEDICAL MEDICAL AUTO THIN CTR CTR LAYER PREP MNL SCREEN CIRCUMCIS 28109 [facility] VALLEJO, ION 8 CLINIC KIMMY W/CLAMP/O TH DEV W/[facility] 54197 [facility] HENLY, DISCHARGE 8 CLINIC KIMMY DAY MANAGEMEN T 30 MIN/< HX&XM NML 45196 [facility] VALLEJO, NB INFT 8 CLINIC LEOMINSTER INITIATIO N DX&TX OTHER [address] [facility] MANUALLY 8 MEDICAL MEDICAL ASSISTED CTR CTR DELIVERY OTHER [address] [facility] ARTIFICIA 8 MEDICAL MEDICAL L RUPTURE CTR [facility] OF [facility] VAGINAL 47532 [facility] MCBREAIRT DELIVERY 8 CLINIC Y, DEB H ONLY W/POSTPAR CLIF CARE 93854 [facility] STEVE BIOPHYSIC 8 REGIONAL II, [place] AL D PROFILE RADIOLOGY W/O PHYS NON-STRES SRVS S TESTING [place] PREG [address] [facility] STEVE UTERUS 8 REGIONAL II, [place] REAL TIME D F/U RADIOLOGY TRNSABDL PHYS PER FETUS SRVS [address]4522 [facility] LIPOVAN, BIOPHYSIC 8 REGIONAL OLLIE B AL PROFILE RADIOLOGY W/O PHYS NON-STRES SRVS S TESTING INJECTION J0690 [facility] [address] [facility] 8 MEDICAL MEDICAL CEFAZOLIN CTR CTR SODIUM 500 MG 83474 [facility] MCBREAIRT NONSTRESS 8 CLINIC Y, DEB H TEST RINGERS J7120 [facility] LACTATE 8 MEDICAL MEDICAL INFUSION CTR CTR UP TO 1000 CC INITIAL 14779 [facility] MCBREAIRT OBSERVATI 8 CLINIC Y, DEB H ON CARE/DAY [address] D[address] [facility] 8 MEDICAL MEDICAL STICK/TAB CTR CTR LET RGNT AUTO W/O MICROSCOP Y RINGERS J7120 [facility] LACTATE 8 MEDICAL MEDICAL INFUSION CTR CTR UP TO [address] [facility] PROPH/DX 8 MEDICAL MEDICAL NJX IV CTR CTR PUSH 1ST SBST/DRUG [address] [facility] NONSTRESS 8 MEDICAL MEDICAL TEST CTR CTR IV NFUS [address] [facility] HYDRATION 8 MEDICAL MEDICAL EA HR CTR CTR CULTURE [address] [facility] BACTERIAL 8 MEDICAL MEDICAL CTR CTR QUANTTATI VE COLONY COUNT URINE CUL [address] [facility] PRSMPTV 8 MEDICAL MEDICAL PTHGNC CTR CTR ORGANISM SCRN W/COLONY ESTIMJ [address] [facility] NONSTRESS 8 MEDICAL MEDICAL TEST CTR CTR [address] [facility] BIOPHYSIC 8 MEDICAL MEDICAL AL CTR CTR PROFILE W/O NON-STRES [place] PREG [address]14 [facility] STEVE UTERUS 8 REGIONAL II, [place] AFTER 1ST D TRIMEST RADIOLOGY PHYS GESTATION SRVS Encounters Encounter Start End Date Code Location Performer Type Date OFFICE 06565 [facility] 7 7 T VISIT 25 MINUTES [facility] T EMERGENCY [address] T VISIT MODERATE SEVERITY OFFICE [address] [facility] 6 6 T VISIT 15 MINUTES OFFICE 60591 [facility] 6 6 T VISIT 15 MINUT[facility] OFFICE [address] [facility] [facility] 6 6 T [facility]ISIT 15 MINUTES [facility] 6 [facility] [address] T OFFICE [address] [facility] 6 6 T VISIT 25 MINUTES [facility] 6 [facility] T EMERGENCY 97924 [facility] 6 6 [facility] EMERGENCY T VISIT PHYS HIGH/URGE NT SEVERITY EMERGENCY [address] T VISIT MODERATE SEVERITY [facility] [address] [place] [address] T EMERGENCY 72799 [facility] 6 [facility] T VISIT HIGH/URGE NT SEVERITY [facility] - 5 5 [facility]ERGENCY 27510 [facility] 5 5 [facility] EM[facility]GENC[facility] T VISIT PHYS MODERATE SEVERITY EMERGENCY 28755 [place] 5 5 [facility] T VISIT LOW/MODER SEVERITY [facility]OSPITAL [place] - 4 4 [facility] T EMERGENCY 03914 [facility] [place] 4 4 [facility] EMERGENCY T VISIT PHYS MODERATE SEVERITY EMERGENCY 08644 [facility] EMERGENCY T VISIT PHYS MODERATE SEVERITY [facility]OSPITAL [place] - 4 4 [facility] T EMERGENCY 93133 [place] 4 4 [facility] T VISIT LIMITED/M INOR PROB EMERGENCY 69471 EILEEN II EILEEN II 4 4 [facility] [place] [facility] T VISIT MODERATE SEVERITY OFFICE 59388 [facility] T VISIT 15 MINUTES OFFICE 59825 [facility] T VISIT 15 MINUTES EMERGENCY 91156 SWINEY SWINEY 3 3 PAT PAT [facility] T VISIT MODERATE SEVERITY EMERGENCY 35741 CELLAROSI CELLAROSI 3 3 - YORBA - YORBA [facility] PAT PAT T VISIT MODERATE SEVERITY OFFICE 71316 [facility] 3 3 T VISIT 15 MINUTES EMERGENCY 36468 DORCAS TOSCANO 3 3 EDW EDW [facility] T VISIT MODERATE SEVERITY [facility] - 3 3 [facility] T EMERGENCY 36168 [place] 3 3 [facility] T VISIT LOW/MODER SEVERITY EMERGENCY 54254 CELLAROSI CELLAROSI 3 3 - YORBA - YORBA [facility] PAT T VISIT MODERATE SEVERITY OFFICE 76757 [facility] 3 3 T NEW 45 MINUTES HOSPITAL ANITA - 3 3 [facility]IENT INC EMERGENCY 92548 [place] 3 3 [facility] T VISIT HIGH/URGE NT SEVERITY [facility] 3 [facility] HOSPITAL ANITA - 3 3 [facility] OUTPATIEN [facility] T OFFICE 74552 LORENAPEL HARPEL OUTPATIEN 3 3 KHLOE KHLOE T VISIT 15 MINUTES EMERGENCY 74141 [facility] 3 [facility] T VISIT HIGH/URGE NT SEVERITY HOSPITAL [facility] - 3 3 [facility] T OFFICE 37893 [facility] 3 3 MONE T NEW 30 MINUTES OFFICE 57004 DICKEY DICKEY OUTPATIEN 2 2 SABINO SABINO T NEW 30 MINUTES OFFICE 38789 [facility] OUTPATIEN 2 2 HEALTH [facility]ALTH T VISIT DEPT DEPT 15 MINUTES OFFICE 11546 [facility]SE [facility] JOSE [facility] OUTPATIEN 2 2 HEALTH HEALTH T VISIT DEPT DEPT 10 MINUTES OFFICE 48981 [facility] OUTPATI[facility] 2 2 SAY SAY T VISIT [address] [facility] - 2 2 MEDICAL OUTPATIEN [facility] UNIVERSIT - 2 2 Y [facility] T OFFICE 79262 [facility] 2 Y T VISIT 5 [facility] UNIVERSIT - 2 2 Y [facility] - 2 [facility] 2 2 Y [facility] T OFFICE 38468 [facility] 2 [facility] T NEW [facility] UNIVERSIT - 2 2 Y [facility] T EMERGENCY 34034 [place] 2 2 [facility] T VISIT HIGH/URGE NT SEVERITY HOSPITAL [place] - 2 2 [facility] T OFFICE 23202 [facility] 2 2 Y T VISIT [address] [place] [address] UNIVERSIT - 2 2 Y [facility] UNIVERSIT [facility] 2 2 Y [facility] T EMERGENCY 77638 [facility] T VISIT HIGH/URGE NT SEVERITY [facility]OSP[facility] [place] - 2 2 [facility] HOSPITAL [place] - 2 2 [facility] T EMERGENCY 97259 [facility] 2 2 [facility] T VISIT MODERATE SEVERITY OFFICE 78926 ISHA Gillis OUTPATIEN 2 2 T VISIT 15 MINUTES EMERGENCY 93677 [facility] 2 2 N [facility] T VISIT HOSPITA LOW/MODER SEVERITY [facility]OSPITAL [facility] 2 2 [facility] T HOSPITA EMERGENCY 09966 MINISTERIO MANDEL 2 2 [facility] T VISIT MODERATE SEVERITY OFFICE 12882 ISHA Gillis OUTPATIEN 2 2 T NEW 45 MINUTES OFFICE 46863 [facility]Y [facility] [address] T VISIT 10 MINUTES HOSPITAL [place] [address] [facility] DEPT 1 1 [facility] V[facility] HIGH EMERGENCY SEVERITY& THREAT FUNCJ EMERGENCY [address] [facility] [address] T VISIT MODERATE SEVERITY OFFICE 05210 [facility] HERNANDEZ OUTPATIEN 1 1 [facility] OZZY T VISIT [address] [facility] - [address] EMERGENC[address] [facility] HICKS 1 1 REGIONAL DEPARTMEN T VISIT EMERGENCY HIGH/URGE NT SEVERITY OFFICE 29026 [facility] BR[facility] OUTPATIEN 1 1 COUNTY KIMBERLY T VISIT [address] MTZ - 1 1 [facility] APOLINAR T EMERGENCY 16881 [facility] 1 1 [facility] AP[facility] T VISIT MODERATE SEVERITY OFFICE 30570 JEANINE OUTPATIEN 1 1 [facility] SANDY T VISIT WOMEN'S [address] [facility] - [address] T OFFICE 83783 [facility] OUTPATIEN 1 1 COUNTY KIMBERLY T VISIT 15 MINUTES OFFICE 45797 [facility] OUTPATIEN 1 1 [facility] KIM[facility] T VISIT [address] [facility] HICKS 0 0 REGIONAL DEPARTMEN T VISIT EMERGENCY HIGH/URGE NT SEVERITY HOSPITAL [facility] - [address] EMERGENCY [address] [facility] [address] T VISIT LOW/MODER SEVERITY OFFICE 14916 [facility] OUTPATIEN 0 0 [facility] KIMBERLY T VISIT 15 MINUTES OFFICE 90609 [facility] OUTPATIEN 0 0 COUNTY KIMBERLY T VISIT [address] [facility] - [address] EMER[address] [facility] [address] T VISIT LOW/MODER SEVERITY EMERGENCY [address] [facility] [address] T VISIT LOW/MODER SEVERITY HOSPITAL [facility] - [address] EMERGENC[address] [facility] [address] T VISIT HIGH/URGE NT SEVERITY HOSPITAL [facility] - [address] [facility] [facility] - [address] T OFFICE 61012 [facility] OUTPATIEN 0 0 [facility] SANDY T VISIT WOMEN'S 10 CARE MINUTES EMERGENCY [address] [facility] [address] T VISIT LOW/MODER SEVERITY EMERGENCY 58797 [facility] JALALON 0 0 REGIONAL SIE DEPARTMEN T VISIT EMERGENCY HIGH/URGE NT SEVERITY OFFICE 37372 [facility] MOMO OUTPATIEN 0 0 CLINIC CE T VISIT 15 MINUTES OFFICE 96347 FREDDY SANDOVAL CONSULTAT 0 0 [facility] NEW[facility]AB N02 PATIENT 30 MIN OFFICE 03748 [facility] OUTPATIEN 0 0 [facility] T VISIT 15 MINUTES OFFICE 57610 [facility] MOMO OUTPATIEN 0 0 CLINIC CE T VISIT 15 MINUTES OFFICE 47217 [facility] M[facility]O OUTPATIEN 0 0 CLINIC CE T VISIT 15 MINUTES EMERGENCY 37613 ALEXUS VILLATORO DEPT 0 0 EMERGENCY CAR VISIT SERVICES HIGH SEVERITY& THREAT FUNCJ OFFICE 91360 [facility] M[facility]O OUTPATIEN 0 0 CLINIC CE T VISIT 15 MINUTES OFFICE 38417 [facility] MOMO, OUTPATIEN 0 0 CLINIC ENAWGAW T VISIT 15 MINUTES OFFICE 14768 [facility] BARR, CONSULTAT 0 0 CLINIC ENAWDUTCHW ION NEW/ESTAB PATIENT [address] [facility] - 0 0 MEDICAL OUTPATIEN CTR T PERIODIC 51408 [facility] CO BATH CO PREVENTIV 0 0 [facility] MED EST CENTER CENTER PATIENT 18-[address] [facility] - 0 0 MEDICAL OUTPATIEN CTR T [facility] - 0 0 MEDICAL OUTPATIEN CTR T OFFICE 31194 [facility], OUTPATIEN 0 0 [facility] PUJA D T VISIT 15 MINUTES EMERGENCY 06322 [facility], 0 0 [facility] ERR[facility] EMERGENCY T VISIT PHYS INC HIGH/URGE NT SEVERITY HOSPITAL BIBI - 0 0 [facility] APOLINAR T OFFICE 63582 [facility], OUTPATIEN 0 0 [facility] PUJA D T VISIT [address] [facility] - 0 0 MEDICAL OUTPATIEN CTR T OFFICE 09812 [facility], OUTPATIEN 0 0 [facility] PUJA D T VISIT 15 MINUTES OFFICE 09370 [facility], OUTPATIEN 0 0 [facility] PUJA D T VISIT [address] [facility] - 0 0 MEDICAL OUTPATIEN CTR T EMERGENCY [address]83 [facility] 0 0 MEDICAL DEPARTMEN CTR T VISIT MODERATE SEVERITY EMERGENCY 78724 [facility] RAVISANKA 0 0 [facility] T VISIT EMERGENCY AM HIGH/URGE PHYS NT SEVERITY HOSPITAL [facility] - 0 0 MEDICAL OUTPATIEN CTR T OFFICE 35536 [facility] CO OUTPATIEN 0 0 HEALTH HEALTH T VISIT CENTER CENTER 15 MINUTES OFFICE 66051 [facility], [facility] PERIODIC 24754 DHS/CO BATH CO PREVENTIV 9 9 [facility] PATIENT BANK ACCT 18-39 [facility] - 9 9 MEDICAL OUTPATIEN CTR [facility] 8 8 MEDICAL OUTPATIEN CTR [facility] 8 8 MEDICAL INPATIENT CTR OFFICE [id number] [facility] 8 8 CLIN[facility] Y, DEB H T VISIT 15 MINUTES [facility] 8 8 MEDICAL OUTPATIEN CTR [facility] 8 8 MEDICAL OUTPATIEN CTR T OFFICE [id number] [facility] 8 8 MEDICAL T VISIT CTR 15 MINUTES [facility] 8 8 MEDICAL OUTPATIEN CTR [facility] 8 8 MEDICAL OUTPATIEN CTR T OFFICE [id number] [facility] 8 8 MEDICAL T VISIT 5 CTR MINUTES OFFICE [id number] [facility] 8 8 CLINIC Y, DEB H T VISIT 15 MINUTES OFFICE [id number] [facility] 8 8 CLINIC Y, DEB H T VISIT 15 MINUTES
--- OUTSIDE RECORDS SUMMARY | 2016-12-23 04:59 | External Medical Summary Rpt ---
Author Author [employer], [employer] Organization [employer] Address Unknown Phone Unavailable Results Urinalysis macro (dipstick) panel in Urine Observa Value Referen Units Interpr Notes Date tion ce etation Range Appeara CLEAR CLEAR No No No December 16 nce of informa informa informa 2017 Urine tion in tion in tion in 7:59 PM source source source data data data Bilirub NEGATIV NEG No No No December 16 in E informa informa informa 2016 [Presen tion in tion in tion in 7:59 PM ce] in source source source Urine data data data by Test strip Erythro NEGATIV NEG No No No December 16 cytes E informa informa informa 2016 [Presen tion in tion in tion in 7:59 PM ce] in source source source Urine data data data Color YELLOW YELLOW No No No December 16 of informa informa informa 2017 Urine tion in tion in tion in 7:59 PM source source source data data data Glucose NEG No No No December 16 [Mass/vol informati informati informati 2016 7:59 ume] in on in on in on in PM Urine by source source source Test data data data strip Ketones NEGATIV NEG mg/dL No No December 16 E informa informa 2016 [Presen tion in tion in 7:59 PM ce] in source source Urine data data by Automat ed test strip pH of 5.0 - 8.5 No Normal No December 16 Urine informati informati 2017 7:59 on in on in PM source source data data Protein NEG mg/dL No No December 16 [Mass/vol informati informati 2016 7:59 ume] in on in on in PM Urine by source source Automated data data test strip Specific 1.005 - No Normal No December 16 gravity 1.030 informati informati 2016 7:59 of Urine on in on in PM source source data data Leukocy LARGE NEG No No No December 16 te informa informa informa 2017 esteras tion in tion in in 7:59 PM e source source source [Presen data data data ce] in Urine by Automat ed test strip Nitrite NEGATIV NEG No No No December 16 E informa informa informa 2016 [Presen tion in tion in in 7:59 PM ce] in source source source Urine data data data by Test strip Urobili 0.2 NEG E.U./dL No No December 16 nogen informa informa 2016 [Presen tion in in 7:59 PM ce] in source source Urine data data by Test strip SPT, QUALITATIVE Observa Value Referen Units Interpr Notes Date tion ce etation Range SPT, NEGATIV NEGATIV No Normal No May 07 QUALITA E E informa informa 2011 TIVE tion in tion in 3:08 PM source source data data
--- OUTSIDE RECORDS SUMMARY | 2016-12-23 04:59 | External Medical Summary Rpt ---
Author Author , Organization [employer] Address Unknown Phone Unavailable Purpose Continuity of Care Document - 10-17-1997 through 2016 Immunization Name Date Route CVX Reacti Commen Provid Is Given on t er Refuse d Influe 150 Histor H109 No nza 2016 ical Quad Inform Inj ation - Source Unspec ified Influe 140 Histor UK[facility]1 No nza, 2013 ical P-Free Inform ation - Source Unspec ified Hep B, Histor H106 No 2000 ical ped/ad Inform ol ation - Source Unspec ified Hep B, Histor H106 No 2000 ical ped/ad Inform ol ation - Source Unspec ified Td 9 Histor H106 No (adult 2000 ical ), Inform adsorb ation ed - Source Unspec ified Hep B, Histor H106 No 2000 ical ped/ad Inform ol ation - Source Unspec ified MMR 10-17- Intram 3 Histor H149 No 1997 uscula ical r Inform ation - Source Unspec ified
== END 2016-12-16 20:27 | disposition home or self-care (01) ==
LOC: UTC 19:24
PROVIDERS: Nurse Practitioner
DX: N39.0 Urinary tract infection, site not specified (principal)

== ENCOUNTER 2017-04-12 22:32 | Emergency (ER) | payer MEDICARE, MEDICAID ==
[~2017-04-12] VITALS: Ht 149.9 cm; Wt 58.5 kg
[2017-04-12 22:51] LABS: URINE BILIRUBIN - DIPSTICK NEGATIVE (NEG); URINE BLOOD 3+ (NEG)
--- NOTE | 2017-04-13 00:11 | Emergency Room Report ---
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 N Clinical Suspician of Infection? Y Mental Status: 1 - Regular (Normal Baseline) Sepsis Risk:Low Sepsis Risk Have you (or family members/close friends) recently traveled outside the [place]? N If Yes, where/when: Have you had exposure to infectious disease within the past month? N TB? Other? Specify: Source patient, RN notes reviewed, family, old records Exam Limitations no limitations Comment pt has several issues which include concern about possible and has feeling of bloating and has barajas - she was seen by junior database administrator last week and is being rx for bladder issues - no fever or vomiting Cardiac Chest Pain Chest pain indicative of cardiac No Timing/Duration this evening Severity moderate ALLERGIES Coded Allergies: No Known Allergies (12/16/16) Home Medications Reported Medications Montelukast Sodium 10 MG PO DAILY #30 NORGESTIMATE-ETHINYL ESTRADIOL (Sprintec 28 Day Tablet) 1 TAB PO DAILY #28 Gabapentin (Gabapentin 100MG) (Unknown Dose) PO BID Atenolol (Atenolol) 25 MG PO DAILY Fluticasone Propionate (Flonase 50 Mcg Nasal [place]) 1 SPRAY NA BID Loratadine (Loratadine 10MG Tablet) 10 MG PO DAILY Polyethylene Glycol 3350 (Miralax) 17 GM PO DAILY History Medical History General CAD? No Angina: No [place]: No Hypertension? No Hyperlipidemia? No CHF? No DVT? No PE? No COPD? No Asthma? No Anemia? No GERD? No Gastric ulcers? No GI Bleed? No Hernia? No Thyroid Problems? No Hypothyroidism? No CVA? No Seizures? No Diabetes? No Renal Insuffiency? No End Stage Renal Disease? No UTI? Yes Stones? No BPH? No GB Disease: No Nephritic Syndrome? No Asplenia? No Hepatitis? No Sickle Cell Disease? No Arthritis? No Migraines? No Cataracts? No Glaucoma? No MRSA? No HIV? No TB? No Anxiety? No Depression? No Cancer? No More? 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 Respiratory denies cough, denies shortness of breath, denies wheezing Cardiovascular denies chest pain, denies palpitations, denies syncope Gastrointestinal see HPI, denies abdominal pain, denies diarrhea, denies vomiting, other Genitourinary see HPI, abnormal vaginal bleeding. denies: discharge. Musculoskeletal denies back pain, denies joint pain, denies joint swelling, denies neck pain Skin denies rash Psychiatric/Neurological denies headache, denies seizure Physical Exam Vital Signs Vital Signs Date Time Temp Pulse Resp B/P Pulse O2 O2 Flow FiO2 Ox Delivery Rate 04/12 2342 83 16 145/94 97 04/12 2241 98.2 99 18 145/99 99 - WBC >12,000 or <4,000 or 10% bands? 2 or more SIRS Criteria Met? B/P:145/94 MAP:114 Creatinine >2.0? UA output<0.5ml/kg/hr for 2 hrs? Platelet count >100,000? Lactate >2.0mmol/1? INR >1.2 or PTT > than 60 sec? Evidence of Organ Dysfunction? Provider documented clinical suspician of infection? Y Sepsis Criteria Count: 1 Sepsis Risk: Low Sepsis Risk General Appearance no apparent distress Eye Exam - bilateral eye PERRL, bilateral eye EOMI Ear, Nose, Throat normal ENT inspection Neck supple Respiratory Status No: respiratory distress. Lung Sounds bilateral: lungs clear. Cardiovascular regular rate/rhythm, no murmur, no rub Peripheral Pulses Pulses normal Yes Gastrointestinal soft Back no CVA tenderness Extremities normal inspection Strength 4 Upper Ext (L), 4 Upper Ext (R), 4 Lower Ext (L), 4 Lower Ext (R) Pelvic deferred Neurologic alert, break out worker II-XII nml as tested, no motor/sensory deficits Reflexes Reflexes normal No Mental status normal mood/affect Skin no rash cons.w/shingles Medical Decision Making LABS/Meds/Orders Pt receiving controlled substance in ED? No Results/Orders Laboratory Tests 04/12/172239: Urine Color YELLOW, Urine Appearance SL CLOUDY, Urine pH 6.0, Ur Specific [place] >= 1.030, Urine Protein TRACE H, Urine Ketones NEGATIVE, Urine Blood 3+ H, Urine Nitrate NEGATIVE, Urine Bilirubin NEGATIVE, Urine Urobilinogen 0.2, Ur Leukocyte Esterase NEGATIVE, Urine RBC 10-20, Urine WBC 5-10, Ur Squamous Epith Cells 10-20, Urine Glucose NEGATIVE Orders Procedure Date/time Status CULTURE, URINE 04/12 2240 Active URINALYSIS/COMPLETE 04/12 2237 Complete URINE 04/12 2237 Complete Departure Departure Time of Disposition 0010 Disposition DC Home or Self Care(routine) Clinical Impression Primary Impression: DUB (dysfunctional uterine bleeding) Condition STABLE Patient Instructions DI for Vaginal Bleeding Additional Instructions call your junior database administrator and pcp in am for follow up Discharge Counseling Counseled pt/family regarding diagnosis, test results, follow up needs ED Critical Care Critical Care No at 0015
--- NOTE | 2017-04-13 00:11 | Emergency Room Report ---
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 N Clinical Suspician of Infection? Y Mental Status: 1 - Regular (Normal Baseline) Sepsis Risk:Low Sepsis Risk Have you (or family members/close friends) recently traveled outside the [place]? N If Yes, where/when: Have you had exposure to infectious disease within the past month? N TB? Other? Specify: Source patient, RN notes reviewed, family, old records Exam Limitations no limitations Comment pt has several issues which include concern about possible and has feeling of bloating and has barajas - she was seen by volcanology professor last week and is being rx for bladder issues - no fever or vomiting Cardiac Chest Pain Chest pain indicative of cardiac No Timing/Duration this evening Severity moderate ALLERGIES Coded Allergies: No Known Allergies (12/16/16) Home Medications Reported Medications Montelukast Sodium 10 MG PO DAILY #30 NORGESTIMATE-ETHINYL ESTRADIOL (Sprintec 28 Day Tablet) 1 TAB PO DAILY #28 Gabapentin (Gabapentin 100MG) (Unknown Dose) PO BID Atenolol (Atenolol) 25 MG PO DAILY Fluticasone Propionate (Flonase 50 Mcg Nasal [place]) 1 SPRAY NA BID Loratadine (Loratadine 10MG Tablet) 10 MG PO DAILY Polyethylene Glycol 3350 (Miralax) 17 GM PO DAILY History Medical History General CAD? No Angina: No [place]: No Hypertension? No Hyperlipidemia? No CHF? No DVT? No PE? No COPD? No Asthma? No Anemia? No GERD? No Gastric ulcers? No GI Bleed? No Hernia? No Thyroid Problems? No Hypothyroidism? No CVA? No Seizures? No Diabetes? No Renal Insuffiency? No End Stage Renal Disease? No UTI? Yes Stones? No BPH? No GB Disease: No Nephritic Syndrome? No Asplenia? No Hepatitis? No Sickle Cell Disease? No Arthritis? No Migraines? No Cataracts? No Glaucoma? No MRSA? No HIV? No TB? No Anxiety? No Depression? No Cancer? No More? 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 Respiratory denies cough, denies shortness of breath, denies wheezing Cardiovascular denies chest pain, denies palpitations, denies syncope Gastrointestinal see HPI, denies abdominal pain, denies diarrhea, denies vomiting, other Genitourinary see HPI, abnormal vaginal bleeding. denies: discharge. Musculoskeletal denies back pain, denies joint pain, denies joint swelling, denies neck pain Skin denies rash Psychiatric/Neurological denies headache, denies seizure Physical Exam Vital Signs Vital Signs Date Time Temp Pulse Resp B/P Pulse O2 O2 Flow FiO2 Ox Delivery Rate 04/12 2342 83 16 145/94 97 04/12 2241 98.2 99 18 145/99 99 - WBC >12,000 or <4,000 or 10% bands? 2 or more SIRS Criteria Met? B/P:145/94 MAP:114 Creatinine >2.0? UA output<0.5ml/kg/hr for 2 hrs? Platelet count >100,000? Lactate >2.0mmol/1? INR >1.2 or PTT > than 60 sec? Evidence of Organ Dysfunction? Provider documented clinical suspician of infection? Y Sepsis Criteria Count: 1 Sepsis Risk: Low Sepsis Risk General Appearance no apparent distress Eye Exam - bilateral eye PERRL, bilateral eye EOMI Ear, Nose, Throat normal ENT inspection Neck supple Respiratory Status No: respiratory distress. Lung Sounds bilateral: lungs clear. 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 No Results/Orders Laboratory Tests 04/12/172239: Urine Color YELLOW, Urine Appearance SL CLOUDY, Urine pH 6.0, Ur Specific [place] >= 1.030, Urine Protein TRACE H, Urine Ketones NEGATIVE, Urine Blood 3+ H, Urine Nitrate NEGATIVE, Urine Bilirubin NEGATIVE, Urine Urobilinogen 0.2, Ur Leukocyte Esterase NEGATIVE, Urine RBC 10-20, Urine WBC 5-10, Ur Squamous Epith Cells 10-20, Urine Glucose NEGATIVE Orders Procedure Date/time Status CULTURE, URINE 04/12 2240 Active URINALYSIS/COMPLETE 04/12 2237 Complete URINE 04/12 2237 Complete Departure Departure Time of Disposition 0010 Disposition DC Home or Self Care(routine) Clinical Impression Primary Impression: DUB (dysfunctional uterine bleeding) Condition STABLE Patient Instructions DI for Vaginal Bleeding Additional Instructions call your volcanology professor and pcp in am for follow up Discharge Counseling Counseled pt/family regarding diagnosis, test results, follow up needs ED Critical Care Critical Care No at 0015
[2017-04-13 00:24] VITALS: BP 132/92
--- OUTSIDE RECORDS SUMMARY | 2017-05-06 01:45 | External Medical Summary Rpt ---
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 68022 SCIFRES SCIFRES MEDICAL 4 ANG ANG XM&EVAL COMPRE NEW PT 1/> VST RADEX 50110 DORCAS TOSCANO HAND 3 EDW EDW MINIMUM 3 VIEWS MEDICAL 24294 [facility] [place] NUTRITION 3 [employer] [place] [facility] RE-ASSMT& DEPARTMEN DEPARTMEN IVNTJ T T IN[place] [address] [place] [address] CONSUELO CORDERO HEAD/BRAI 3 HARRIETT N W/O CONTRAST MATERIAL XTRNL ECG 25168 CHOUDHURY SHERICE CHOUDHURY SHERICE & 48 HR 3 RECORDING ECHO 06450 CHOUDHURY SHERICE CHOUDHURY SHERICE TTHRC R-T 3 2D W/WOM-MOD E COMPL SPEC&COLR D ECG 91310 [facility] ROUTINE 3 ECG W/LEAST 12 LDS W/I&R NEURAXIAL 98841 JUANITA GRANT CYNDIE LABOR 3 ANALG/ANE S PLND VAGINAL DELIVERY VAGINAL 97661 DEION [facility] DELIVERY 3 MONE MONE ONLY W/POSTPAR CLIF CARE OTHER 7359 ANITA HOWARD MANUALLY 3 [facility] ASSISTED INC INC DELIVERY NONCOVERE A9270 [facility] D ITEM OR 3 [facility] URNLS DIP 15974 ANITA HOWARD 3 [facility] HOS[facility] STICK/TAB INC INC LET REAGENT AUTO MICROSCOP Y 39627 ANITA ANIAT NONSTRESS 3 [facility] TEST INC INC DOPPLER 82048 [facility] VELOCIMET 3 MONE MONE RY UMBILICAL ARTERY US PREG 17317 ALBARRANAshley [place] UTERUS 3 MONE MONE REAL TIME F/U TRNSABDL PER FETUS 72599 [facility] BIOPHYSIC 3 MONE MONE AL PROFILE W/O NON-STRES S TESTING 87665 HARPEL HARPEL NONSTRESS 3 KHLOE KHLOE TEST DOPPLER 82213 [facility] [place] VELOCIMET 3 MONE MONE RY UMBILICAL ARTERY 73796 [facility] [place] BIOPHYSIC 3 MONE MONE AL PROFILE W/O NON-STRES S TESTING US PREG 44846 [facility] UTERUS 3 MONE MONE REAL TIME F/U TRNSABDL PER FETUS URINE 10094 DEION [place] 3 MONE MONE TEST VISUAL COLOR CMPRSN METHS URINE 87553 DICKEY DICKEY 2 SABINO SABINO TEST VISUAL COLOR CMPRSN METHS URINE 01944 JOSE [facility] JOSE MARIA CO 2 HEALTH HEALTH TEST DEPT DEPT VISUAL COLOR CMPRSN METHS MEDICAL 13554 JOSE [facility] JOSE [facility] CO NUTRITION 2 HEALTH HEALTH DEPT DEPT ASSMT&IVN TJ INDIV EACH 15 OR URINE 63449 JOSE MARIA [facility] JOSE MARIA CO 2 HEALTH HEALTH TEST DEPT DEPT VISUAL COLOR CMPRSN METHS URINE 76388 QUINN QUINN 2 SAY SAY TEST VISUAL COLOR CMPRSN METHS COLLECTIO 94596 QUINN QUINN N VENOUS 2 [facility] SAY BLOOD VENIPUNCT URE GONADOTRO 40732 [facility] PIN [address] QUALITATI VE NONCOVERE A9270 [facility] D ITEM OR 2 Y Y SERVICE [facility] URNLS DIP 61367 [facility] 2 Y Y STICK/TAB [facility] LET REAGENT AUTO MICROSCOP Y IADNA 57728 [facility] STREPTOCO 2 Y Y CCUS [facility] [place] PRO[place] [address] [facility] NONSTRESS 2 Y Y [facility]OSP[facility] 45204 [facility] NONSTRESS 2 Y Y TEST [facility]OSPITAL HOSPITAL US PREG 20746 [facility] UTERUS 2 Y Y REAL TIME HOSPITAL HOSPITAL F/U TRNSABDL PER FETUS 48743 [facility] NONSTRESS 2 [place] [address] [facility] 2 Y Y UTERUS HOSPITAL HOSPITAL LIMITED 1/> FETUSES 06125 [facility] 2 Y Y AL HOSPITAL HOSPITAL PROFILE W/O NON-STRES S TESTING 75242 [facility] NONSTRESS 2 HEALTH MONE TEST [facility] [address] [facility] MEDICAL RADHA AL IMAGING PROFILE ASS NON-STRES S TESTING 82833 [facility] NONSTRESS 2 Y Y TEST [facility] URINE 25767 PRANAV PIPERURBON 2 [facility] VISUAL COLOR CMPRSN METHS CULTURE 23820 [facility] YOUNG BACTERIAL 2 [facility] QUANTTATI VE COLONY COUNT URINE IADNA 79671 [facility]IDE CHLAMYDIA 2 [facility] TRACHOMAT IS DIRECT PROBE TQ URNLS DIP 89833 [facility] 2 [facility] STICK/TAB HOSPITAL HOSPITAL LET REAGENT AUTO MICROSCOP Y COLLECTIO 50197 PRANAV YOUNGON N VENOUS 2 [facility] HOSPITAL VENIPUNCT URE COMPREHEN 79422 [facility] SIVE [address] [facility] PANEL IADNA 15763 [facility] NEISSERIA 2 [facility] GONORRHOE AE DIRECT PROBE TQ INJECTION J0[address] NE SODIUM PER 250 MG BLOOD 24038 [facility] [place] COUNT 2 [facility] AUTO&[place] [address] [place] [place] INFUSION 2 [facility] THERAPY/P HOSPITAL HOSPITAL ROPHYLAXI S /DX 1ST TO 1 HR [address]195 [facility] NONSTRESS 2 Y Y TEST [facility] [place] [place] [address] [facility] LIPASE 2 [facility] URNLS DIP [address] STICK/TAB [facility] HOSPITAL [place] [address] [facility] AMYLASE 2 [facility] INJECTION J[address] ON HCL PER 1 MG ELECTROEN 05986 [facility] CEPHALOGR 2 Y Y AM W/REC [facility] HOSPITAL AWAKE&SIDRA WSY COMPREHEN 92862 [facility] PANEL BLOOD 41022 [facility] COUNT 2 [facility] AUTO&AUTO DIFRNTL WBC COLLECTIO 30487 [facility] N VENOUS 2 [facility] VENIPUNCT URE THER 06238 [facility] PROPH/DX 2 [facility] PUSH SINGLE/1S T SBST/[place] [address] [place] [facility]ALF SHAHBAZ 2 RADIOLOGY UTERUS LIMITED 1/> FETUSES CULTURE 27933 [facility] BACTERIAL [address] [place] [address] QUANTTATI VE COLONY COUNT URINE URNLS DIP [address] STICK/TAB [facility] HOSPITAL LET REAGENT [place] 07752 VIEIRA J VIEIRA J UTERUS 2 REAL TIME F/U TRNSABDL PER FETUS GONADOTRO 64996 LAB COR LAB COR PIN 2 [facility] [address] LAB [facility] LAB COR 2 [place] [address] LAB COR LAB COR ESTRIOL 2 [facility] ALPHA-FET 84357 LAB COR LAB COR OPROTEIN 2 [facility] SERUM [facility] HOLDING IADNA 30294 PATHOLOGY ALEXUS NEISSERIA 2 & NANI CYTOLOGY GONORRHOE LAB AE AMPLIFIED PROBE TQ IADNA 83282 PATHOLOGY ALEXUS CHLAMYDIA 2 & NANI CYTOLOGY TRACHOMAT LAB IS AMPLIFIED PROBE TQ CYTP 66257 PATHOLOGY ALEXUS CERVICAL/ 2 & NANI VAGINAL CYTOLOGY REQ LAB INTERP PHYSICIAN CYTP C/V 06542 PATHOLOGY ALEXUS AUTO THIN 2 & NANI LYR CYTOLOGY PREPJ SCR LAB MNL RESCR PHYS US PREG 71095 VIEIRA J VIEIRA J UTERUS 2 REAL TIME W/IMAGE DCMTN TRANSVAG AMB A0427 [facility] SERVICE 2 [facility]IGUE [facility] EMS EMERGENCY TRANSPORT LEVEL 1 GROUND A0425 [facility] MILEAGE 2 [facility] [place] PER [place] [facility] STATUTE MILE RADIOLOGI 70098 [facility] 1 REGIONAL SANDY EXAMINATI RADIOLOG ON CHEST SINGLE VIEW FRONTAL ECG [address] [facility] [address] [facility] ROUTINE [address] W/LEAST 12 LDS TRCG ONLY W/O I&R URINE [address] [facility] [address] VISUAL COLOR CMPRSN METHS ECG [address] ST [facility] BOOKER ROUTINE 1 MEDICAL SANDY ECG CENTER W/LEAST 12 LDS I&R ONLY THERAPEUT 75179 [facility] 1 CRITICAL ACCESS HOSPITAL OZZY PROPHYLAC TIC/DX INJECTION SUBQ/IM THER [address] [facility] PROPH/DX [address] MED[address] NJX [address] PUSH SINGLE/1S T SBST/DRUG INJECTION J1885 [facility] [address] TROMETH[place] IN[place] 15 [place] [address] [facility] INFLUENZA 1 MEDICAL MEDICAL A/B EACH [facility] [place] COLLECTIO [address] [facility] N VENOUS [address] VENIPUNCT URE URNLS DIP [address] [facility] 1 MEDICAL MEDICAL STICK/TAB CT CT LET REAGENT AUTO MICROSCOP Y URINE [address] [facility] [address] [place] [address] [facility] INFUSION [address] EACH ADDITIONA L HOUR COMPREHEN [address] [facility] SIVE [address] PANEL BLOOD [address] [facility] COUNT [address] AUTO&AUTO DIFRNTL WBC RADIOLOGI 88185 ST [facility] STEVE II C EXAM 1 TIN DIPPER CHEST 2 RADIOLOG VIEWS FRONTAL&L ATERAL CYTP [address] [facility] CERV/VAG [address] LAYER PREP MNL SCREEN URINE 40374 [facility] [address] [place] [address] TEST VISUAL COLOR CMPRSN METHS URNLS DIP [address] STICK/TAB LET RGNT AUTO W/O MICROSCOP Y COMPREHEN [address] [facility] SIVE [address] [place] [address] [facility] INFUSION [address] EACH ADDITIONA L HOUR INJECTION J2405 [facility] [address] ON HCL [place] [address] [place] [address] [facility] INFUSION 0 MEDICAL MEDICAL THERAPY/P CT CT ROPHYLAXI S /DX 1ST TO [address] [facility] IC [address] IV PUSH EACH NEW DRUG BLOOD [address] [facility] COUNT [address] AUTOMATED CUL BACT [address] [facility] AEROBIC [address] METHS DEFINITIV E EA ISOL COLLECTIO 834[address] [facility] [facility] N VENOUS [address] VENIPUNCT URE CULTURE [address] [facility] BACTERIAL [address] AEROBIC W/ID ISOLATES SUSCEPTIB [address] [facility] LTY STDY [address] [place] IAL MICRO/[place] [address] [facility] INFUSION [address] PROPHYLAX IS/DX EA HOUR BLOOD [address] ARPIAT COUNT [address] MCRSCP W/MNL DIFRNTL WBC COUNT INCISION 12910 ST [facility] DIJENG & 0 REGIONAL SES DRAINAGE ABSCESS EMERGENCY COMPLICAT ED/MULTIP LE INJECTION J2175 [facility] [address] E HCL PER 100 MG ORTHOPANT 68517 FREDDY Coretta JAIME OGRAM 0 [place] [place] [address] [facility] JAM HEAD/BRAI 0 RADIOLOGY N W/O CONTRAST MATERIAL ELECTROEN [address] VERNONIRE CEPHALOGR 0 MEDICAL MEDICAL AM W/REC CTR CTR AWAKE&ASL EEP ELECTROEN 91756 NAV[facility] MOMO, CEPHALOGR 0 CLINIC ENAWGAW AM W/REC AWAKE&SIDRA WSY IADNA 38172 BATH CO BATH CO NEISSERIA 0 [facility] CENTER [place] GONORRHOE AE AMPLIFIED PROBE TQ IADNA 60238 BATH CO BATH CO CHLAMYDIA 0 [facility] [place] TRACHOMAT IS AMPLIFIED PROBE TQ URINE 20252 BATH CO BATH CO 0 [facility] TEST CENTER CENTER VISUAL COLOR CMPRSN METHS URINE [address] [facility] 0 MEDICAL MEDICAL TEST CTR [place] [address] [facility] BILL, HEAD/BRAI 0 REGIONAL SONY N W/O & W/CONTRAS RADIOLOGY T PHYS MATERIAL SRVS COLLECTIO [address] [facility] [address] [place] N VENOUS 0 MEDICAL MEDICAL BLOOD CTR CTR VENIPUNCT URE COMPREHEN [address] [facility] SIVE 0 MEDICAL MEDICAL [place] [address] [facility] THYROID 0 MEDICAL MEDICAL STIMULATI CTR CTR NG HORMONE TSH BLOOD [address] [facility] COUNT 0 MEDICAL MEDICAL COMPLETE CTR CTR AUTO&AUTO DIFRNTL WBC URNLS DIP 76552 [facility] H[facility] 0 [facility] D STICK/TAB LET REAGENT AUTO MICROSCOP Y COLLECTIO 38983 [facility], N VENOUS 0 [facility] BLOOD VENIPUNCT URE URINE 69365 [facility], 0 [facility] TEST VISUAL COLOR CMPRSN METHS BASIC 61169 [facility] METABOLIC 0 [place] PANEL APOLINAR APOLINAR CALCIUM TOTAL COLLECTIO 51820 [facility] N VENOUS 0 [place] BLOOD APOLINAR APOLINAR VENIPUNCT URE GONADOTRO 78612 [facility] PIN 0 [place] CHORIONIC APOLINAR APOLINAR QUALITATI VE BLOOD 07008 [facility] COUNT 0 [place] COMPLETE APOLINAR APOLINAR AUTO&AUTO DIFRNTL WBC URNLS DIP 03507 [facility] 0 [place] STICK/TAB APOLINAR APOLINAR LET RGNT AUTO W/O MICROSCOP Y URINE 64616 [facility], 0 [place] [facility] D TEST VISUAL COLOR CMPRSN METHS RHEUMATOI 66937 [facility] D FACTOR 0 MEDICAL MEDICAL QUALITATI CTR CTR VE ANTINUCLE [address] [facility] [address] [place] AR 0 MEDICAL MEDICAL ANTIBODIE CTR CTR S LULU COLLECTIO 83076 [facility], N VENOUS 0 [facility] PUJA D BLOOD VENIPUNCT URE SEDIMENTA 68186 [facility] TION RATE 0 MEDICAL MEDICAL [place] [address] [facility] BLOOD/URI 0 MEDICAL MEDICAL C ACID CTR CTR URINE 44466 [facility], 0 [facility] D TEST VISUAL COLOR CMPRSN METHS URINE [address] [facility] [address] [place] 0 MEDICAL MEDICAL TEST CTR CTR VISUAL COLOR CMPRSN METHS URNLS DIP 41257 [facility] ST [facility] 0 MEDICAL MEDICAL STICK/TAB CTR CTR LET RGNT AUTO W/O MICROSCOP Y URINE 14605 BATH CO BATH CO 0 [facility] TEST CENTER CENTER VISUAL COLOR CMPRSN METHS CYTP [address] [facility] CERV/VAG 0 MEDICAL MEDICAL AUTO THIN CTR CTR LAYER PREP MNL SCREEN CYTP [address] [facility] CERV/VAG 9 MEDICAL MEDICAL AUTO THIN CTR CTR LAYER PREP MNL SCREEN IADNA 92554 [facility]/CO BATH CO CHLAMYDIA 9 [facility] TRACHOMAT BANK ACCT IS AMPLIFIED PROBE TQ IADNA 40197 [facility]/CO BATH CO NEISSERIA 9 [facility] GONORRHOE BANK ACCT AE AMPLIFIED PROBE TQ AMINES 23135 [facility]/CO BATH CO VAGINAL 9 [facility] QUALITATI BANK ACCT VE CYTP [address] [facility] CERV/VAG 8 MEDICAL MEDICAL AUTO THIN CTR CTR LAYER PREP MNL SCREEN CYTP 18337 ST [facility] SLOSS, CERVICAL/ [address] [facility] 16925 [facility] VALLEJO DISCHARGE 8 CLINIC NEMACOLIN DAY MANAGEMEN T 30 MIN/< CIRCUMCIS 83398 [facility] VALLEJO ION 8 [facility] W/CLAMP/O TH DEV W/BLOCK HX&XM NML 11202 [facility] VALLEJO NB INFT 8 [facility] INITIATIO N DX&TX VAGINAL 97563 [facility] JONAH DELIVERY 8 CLINIC Y, DEB H ONLY W/POSTPAR CLIF CARE OTHER [address] [facility] ARTIFICIA 8 MEDICAL MEDICAL L RUPTURE CTR CTR OF MEMBRANES OTHER [address] [facility] MANUALLY 8 MEDICAL MEDICAL ASSISTED CTR CTR DELIVERY [address]6412 [facility] STEVE BIOPHYSIC 8 REGIONAL II, [place] AL D PROFILE RADIOLOGY W/O PHYS NON-STRES SRVS S TESTING US PREG [address] [facility] STEVE UTERUS 8 REGIONAL II, [place] REAL TIME D F/U RADIOLOGY TRNSABDL PHYS PER FETUS SRVS [address] [facility] BIOPHYSIC 8 MEDICAL MEDICAL AL CTR CTR PROFILE W/O NON-STRES S TESTING INITIAL 22989 [facility] MCJONAH OBSERVATI 8 CLINIC Y DEB H ON CARE/DAY [address] [facility] LACTATE 8 MEDICAL MEDICAL INFUSION CTR CTR UP TO 1000 CC [address] [facility] MCBREAIRT NONSTRESS 8 CLINIC Y, DEB H TEST INJECTION J0690 [facility] 8 MEDICAL MEDICAL CEFAZOLIN CTR CTR SODIUM [address] D[address] [facility] 8 MEDICAL MEDICAL STICK/TAB CTR CTR LET RGNT AUTO W/[place]CROSCOP Y [address] [facility] NONSTRESS 8 MEDICAL MEDICAL TEST CTR CTR THER [address] [facility] PROPH/DX 8 MEDICAL MEDICAL NJX IV CTR CTR PUSH 1ST SBST/DRUG IV NFUS [address] [facility] HYDRATION 8 MEDICAL MEDICAL EA HR CTR CTR CULTURE [address] [facility] BACTERIAL 8 MEDICAL MEDICAL CTR CTR QUANTTATI VE COLONY COUNT URINE RINGERS J7120 [facility] LACTATE 8 MEDICAL MEDICAL INFUSION CTR CTR UP TO [address] [facility] PRSMPTV 8 MEDICAL MEDICAL PTHGNC CTR CTR ORGANISM SCRN W/COLONY ESTIMJ [address] [facility] NONSTRESS 8 MEDICAL MEDICAL TEST CTR CTR [address] [facility] STEVE BIOPHYSIC 8 REGIONAL II, [place] AL D PROFILE RADIOLOGY W/O PHYS NON-STRES [place]VS [place]REG [address] [facility] STEVE UTERUS 8 REGIONAL II, [place] AFTER 1ST D TRIMEST RADIOLOGY PHYS GESTATION SRVS MANUAL 73.59 Steven Albarran MD DELIV NEC Encounters Encounter Start End Date Code Location Performer Type Date OFFICE 909[address] [facility] 7 7 T VISIT [address] [facility] 7 7 T VISIT 15 MINUTES [facility] - [facility] - 7 7 [facility] - 7 7 [facility] T OFFICE [address] [facility] 7 7 T VISIT [address] [facility] 7 7 T VISIT 25 MINUTES EMERGENCY 21404 [facility] 6 6 [facility] EMERGENCY T VISIT PHYS MODERATE SEVERITY [facility] [place] [facility] 6 [facility] 64867 [facility] 6 6 T VISIT 15 MINUTES OFFICE 67028 [facility] 6 6 T VISIT 15 MINUTES OFFICE 15319 [facility] 6 6 T VISIT 15 MINUTES [facility] [place] [facility] 6 6 [facility] [place] [facility] 6 6 [facility] 13041 [facility] 6 6 T VISIT 25 MINUTES [facility] [place] [facility] 6 6 [facility] [place] [facility] 6 6 [facility] EMERG[facility] 84943 [place] 6 6 [facility] T VISIT MODERATE [facility]VERITY [facility] [place] - 6 6 [facility] T EMERGENCY 15120 [facility] II 6 6 [facility] EM[facility]GENC[facility] T [facility]ISIT PHYS HIGH/URGE NT SEVERITY [facility] [place] - 6 6 [facility] T EMERGENCY 20411 [place] 6 6 [facility] T VISIT [facility]IGH/URGE NT SEVERITY [facility] [place] - 5 5 [facility] T EMERGENCY 40441 [place] 5 5 [facility] T VISIT LOW/MODER SEVERITY EMERGENCY 63352 [facility] EMERG[facility] DE[facility] EMERGENCY T VISIT PHYS MODERATE SEVERITY [facility] [place] [facility] 4 4 [facility] 65037 [facility] 4 4 [facility] EMERGENCY T VISIT PHYS MODERATE SEVERITY EMERGENCY 87483 [facility] 4 4 [facility] EMERGENCY T VISIT PHYS MODERATE SEVERITY [facility] [place] - 4 4 [facility] 45546 [place] 4 4 [facility] T [facility]ISIT LIMITED/M INOR PROB EMERGENCY 06674 EILEEN II EILEEN II 4 4 [facility] EMERGENCY DEPARTMENT T VISIT MODERATE SEVERITY OFFICE 21325 [facility] 4 4 T VISIT 15 MINUTES OFFICE 35544 [facility] 4 4 T VISIT 15 MINUTES EMERGENCY 84184 [facility] SWINEY 3 3 [facility] MODERATE SEVERITY EMERGENCY 77721 [facility]I CELLAROSI 3 3 - YORBA - YORBA DEPARTMEN PAT PAT T VISIT MODERATE SEVERITY OFFICE 53291 [facility] 3 3 T VISIT 15 MINUTES EMERGENCY 35613 DORCAS TOSCANO 3 3 [facility] MODERATE SEVERITY [facility] [place] [facility] 3 3 [facility] 17196 CELLAROSI CELLAROSI 3 3 - YORBA - Y[facility] T VISIT MODERATE SEVERITY EMERGENCY 63756 [facility] 3 3 [facility] T VISIT LOW/MODER SEVERITY OFFICE 50424 [facility] 3 3 T NEW 45 MINUTES Inpatient IMP Anita Albarran MD (IN) 3 13:40 3 11:11 [facility] ANITA - 3 3 [facility] [place] - 3 3 [facility] 95913 [facility] 3 3 [facility] T VISIT [facility]IGH/URGE NT SEVERITY HOSPITAL ANITA - 3 3 [facility] T OFFICE 40627 [facility] 3 3 [facility] T VISIT 15 MINUT[facility] EMERGENCY 98041 [place] 3 3 [facility] T VISIT [facility]IGH/URGE NT SEVERITY [facility] 74501 [place] OUT[facility] 3 3 [facility] T NEW 30 MINUTES OFFICE 95781 [facility] 2 2 [facility] T NEW 30 MINUTES OFFICE 47911 [facility] OUTPATIEN 2 2 [facility] T VISIT DEPT DEPT 15 MINUTES OFFICE 54354 [facility] OUTPATIEN 2 2 [facility] T VISIT DEPT DEPT 10 MINUTES OFFICE 31933 [facility] 2 2 SAY SAY T VISIT 15 MINUTES [facility] 2 [facility] 2 2 [facility] T OFFICE 37143 UNIVERSIT OUTPATIEN 2 2 Y T VISIT 5 [facility]ERS[facility] - 2 2 [facility] 2 [facility] 2 2 [facility] T OFFICE 66375 [facility] 2 2 HEALTH [facility] T NEW 30 CLINIC OF MINUTES [facility] UNIVERS[facility] 2 2 Y [facility] EM[facility] 53815 [facility] 2 2 [facility] T VISIT HIGH/URGE NT [facility]VERITY [facility] 2 2 [facility] 2 2 [facility] OFF[facility] 25262 [facility] 2 2 Y T VISIT 5 [facility] 2 2 [facility] 2 2 [facility] 14296 [facility] 2 2 [facility] T VISIT [facility]IGH/URGE NT SEVERITY [facility] 2 2 [facility] 76792 [facility] 2 2 [facility] T VISIT MODERATE SEVERITY OFFICE 76345 ISHA Gillis OUTPATIEN 2 2 T VISIT 15 MINUTES EMERGENCY 22743 [facility] 2 2 N [facility] T VISIT HOSPITA LOW/MODER SEVERITY HOSPITAL [facility] - 2 2 N [facility] T HOSPITA EMERGENCY 86410 MINISTERIO MANDEL 2 2 [facility] T VISIT MODERATE SEVERITY OFFICE 01015 ISHA Gillis OUTPATIEN 2 2 T NEW 45 MINUTES OFFICE 04726 AMY RAMÍREZ [facility] 1 1 [facility] T VISIT 10 MINUTES EMERGENCY 82106 [facility] 1 1 [facility] T VISIT MODERATE SEVERITY EMERGENCY 43147 [facility] 1 1 [facility] VISIT HIGH EMERGENCY SEVERITY& THREAT [facility] - [address] T OFFICE 88362 [facility] HERNANDEZ OUTPATIEN 1 1 [facility] T VISIT [address] [facility] - [address] T EMERGENCY 76458 [facility] 1 1 REGIONAL DEPARTMEN T VISIT EMERGENCY HIGH/URGE NT SEVERITY OFFICE 28694 [facility] BROMAGEN OUTPATIEN 1 1 [facility]IM[facility] T VISIT 15 MINUTES HOSPITAL [facility] - 1 1 [facility] T EMERGENCY 11519 [facility] 1 1 MICHAEL PHI DEPARTMEN EMERGENCY T VISIT PHYS MODERATE SEVERITY [facility]PITAL [facility] - [address] T OFFICE 53886 JEANINE OUTPATIEN 1 1 [facility] T VISIT WOMEN'S 15 CARE MINUTES OFFICE 98612 [facility]AG[facility] OUTPATIEN 1 1 [facility] T VISIT 15 MINUTES OFFICE 25104 [facility] BROMAGEN OUTPATIEN 1 1 [facility] T VISIT 15 MINUTES EMERGENCY 89881 [facility] 0 0 REGIONAL DEPARTMEN T VISIT EMERGENCY HIGH/URGE NT SEVERITY [facility] - [address] EMERGENCY [address] [facility] [address] T VISIT LOW/MODER SEVERITY OFFICE 79045 [facility] OUTPATIEN 0 0 [facility] T VISIT 15 MINUTES OFFICE 24819 [facility] OUTPATIEN 0 0 [facility] T VISIT [address] [facility] - [address]ER[address] [facility] [address] T VISIT LOW/MODER SEVERITY [facility]PITAL [facility] - [address] [facility] [address] T VISIT LOW/MODER SEVERITY EMERGENCY [address] [facility] [address] T VISIT HIGH/URGE NT SEVERITY [facility]OSPITAL [facility] - [address] T [facility]ERGENCY 64707 [facility] REGION[facility] SIE DEPARTMEN T VISIT EMERGENCY HIGH/URGE NT SEVERITY [facility] - [address] EMERG[address] [facility] [address] T VISIT LOW/MODER SEVERITY OFFICE 63820 JEANINE OUTPATIEN 0 0 [facility] T VISIT WOMEN'S 10 CARE MINUTES OFFICE 38488 [facility] MOMO OUTPATIEN 0 0 CLINIC CE T VISIT 15 MINUTES OFFICE 05671 FREDDY SANDOVAL CONSULTAT 0 0 HOPE DON ION IIIPSC NEW/ESTAB N02 PATIENT 30 MIN OFFICE 72461 [facility] OUTPATIEN 0 0 [facility] T VISIT 15 MINUTES OFFICE 20121 [facility] HOGANI OUTPATIEN 0 0 CLINIC CE T VISIT 15 MINUTES OFFICE 98362 [facility] KRISHNAHARI OUTPATIEN 0 0 CLINIC CE T VISIT 15 MINUTES EMERGENCY 26045 [facility] DEPT 0 0 EMERGENCY CAR VISIT SERVICES HIGH SEVERITY& THREAT FUNCJ OFFICE 01988 [facility] OUTPATIEN 0 0 CLINIC CE T VISIT 15 MINUTES OFFICE 50028 [facility] M[facility], OUTPATIEN 0 0 CLINIC ENAWGAW T VISIT 15 MINUTES OFFICE 62138 [facility] M[facility]O, CONSULTAT 0 0 CLINIC ENAWGAW ION NEW/ESTAB PATIENT [address] [facility] - 0 [address] [facility]PATIEN CTR T PERIODIC 01955 [facility] BATH CO PREVENTIV [address] [facility] CENTER PATIENT 18-[address] [facility] - 0 0 MEDICAL OUTPATIEN CTR T OFFICE 50353 [facility], OUTPATIEN 0 0 [facility] D T VISIT [address] [facility] - 0 0 MEDICAL OUTPATIEN CTR T [facility] - 0 0 [facility] OUTPATIEN [facility] T EMERGENCY [address] [facility] 0 0 [facility] T VISIT HIGH/URGE NT SEVERITY OFFICE 03408 [facility], OUTPATIEN 0 0 [facility] PU[facility] D T VISIT 15 MINUTES OFFICE 94599 [facility], OUTPATIEN 0 0 [facility] T VISIT [address] [facility] - 0 0 MEDICAL OUTPATIEN CTR T OFFICE 11084 [facility], OUTPATIEN 0 0 [facility] PUJA D T VISIT [address] [facility] 0 0 [facility] EMERGENC[facility] AM HIGH/URGE PHYS NT SEVERITY [facility] - 0 0 MEDICAL OUTPATIEN CTR T EMERGENCY [address] [facility] 0 0 [facility]PART[facility] CTR T VISIT MODERATE SEVERITY OFFICE 30105 [facility] OUTPATIEN 0 0 [facility] T VISIT CENTER CENTER [address] [facility] - 0 0 MEDICAL OUTPATIEN CTR T OFFICE 06747 [facility], OUTPATIEN 9 9 [facility] PU[facility] D T NEW [address] [facility] - 9 9 MEDICAL OUTPATIEN CTR T PERIODIC 47327 DHS/CO BATH CO PREVENTIV 9 9 [facility] PATIENT BANK ACCT 18-39 [facility] [place] [address] 8 MEDICAL OUTPATIEN CTR [facility] [place] [address] 8 MEDICAL INPATIENT CTR OFFICE 24505 [facility] CORNELIONATHANIELAIRT OUTPATI 8 8 CLINIC Y, DEB H T VISIT 15 MINUTES H[facility] [place] [address] 8 MEDICAL OUTPATIEN CTR [facility] [place] [address] [address] MEDICAL OUTPATIEN CTR T OFFICE 05398 [facility] 8 8 MEDICAL T VISIT CTR 15 MINUTES [facility] [place] [address] 8 MEDICAL OUTPATIEN [facility] [place] [address] [address] MEDICAL OUTPATIEN CTR T OFFICE 96459 [facility] 8 8 MEDICAL T VISIT 5 CTR MINUTES OFFICE 29589 [facility] WHITTAKERT OUTPATIEN 8 8 CLINIC Y, DEB H T VISIT 15 MINUTES OFFICE 80893 [facility] WHITTAKERT OUTPATIEN 8 8 CLINIC Y, DEB H T VISIT 15 MINUTES
--- OUTSIDE RECORDS SUMMARY | 2017-05-06 01:45 | External Medical Summary Rpt ---
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 [address] PANEL BLOOD [address] [facility] COUNT [address] AUTO&AUTO DIFRNTL WBC RADIOLOGI 72885 ST [facility] STEVE II C EXAM 1 TUBE KNITTER CHEST 2 RADIOLOG VIEWS FRONTAL&L ATERAL CYTP [address] [facility] CERV/VAG [address] LAYER PREP MNL SCREEN URINE 51793 [facility] [address] [place] [address] TEST VISUAL COLOR CMPRSN METHS URNLS DIP [address] STICK/TAB LET RGNT AUTO W/O MICROSCOP Y COMPREHEN [address] [facility] SIVE [address] [place] [address] [facility] INFUSION [address] EACH ADDITIONA L HOUR INJECTION J2405 [facility] [address] ON HCL [place] [address] [place] [address] [facility] INFUSION 0 MEDICAL MEDICAL THERAPY/P CT CT ROPHYLAXI S /DX 1ST TO [address] [facility] IC [address] IV PUSH EACH NEW DRUG BLOOD [address] [facility] COUNT [address] AUTOMATED CUL BACT [address] [facility] AEROBIC [address] METHS DEFINITIV E EA ISOL COLLECTIO [address] [facility] N VENOUS [address] VENIPUNCT URE CULTURE [address] [facility] BACTERIAL [address] AEROBIC W/ID ISOLATES SUSCEPTIB [address] [facility] LTY STDY [address] [place] IAL MICRO/[place] [address] [facility] INFUSION [address] PROPHYLAX IS/DX EA HOUR BLOOD [address] [facility] COUNT [address] MCRSCP W/MNL DIFRNTL WBC COUNT INCISION 19420 ST [facility] DIJENG & 0 REGIONAL SES DRAINAGE ABSCESS EMERGENCY COMPLICAT ED/MULTIP LE INJECTION J2175 [facility] [address] E HCL PER 100 MG ORTHOPANT 62822 FREDDY Coretta JAIME OGRAM 0 [place] [address] [place] [address] [facility] [place] JAM HEAD/BRAI 0 RADIOLOGY N W/O CONTRAST MATERIAL ELECTROEN [address] VERNONIRE CEPHALOGR 0 MEDICAL MEDICAL AM W/REC CTR CTR AWAKE&ASL EEP ELECTROEN 26918 [facility] MOMO, CEPHALOGR 0 CLINIC ENAWGAW AM W/REC AWAKE&SIDRA WSY IADNA 72135 BATH CO BATH CO NEISSERIA 0 [facility] CENTER KIMBERLY GONORRHOE AE AMPLIFIED PROBE TQ IADNA 12674 BATH CO BATH CO CHLAMYDIA 0 [facility] CENTER KIMBERLY TRACHOMAT IS AMPLIFIED PROBE TQ URINE 85462 BATH CO BATH CO 0 [facility] TEST CENTER CENTER VISUAL COLOR CMPRSN METHS URINE [address] [facility] 0 MEDICAL MEDICAL TEST CTR [place] [address] [facility] BILL, HEAD/BRAI 0 REGIONAL SONY N W/O & W/CONTRAS RADIOLOGY T PHYS MATERIAL SRVS COLLECTIO 93108 [facility] ST [facility] N VENOUS 0 MEDICAL MEDICAL BLOOD CTR CTR VENIPUNCT URE COMPREHEN 80781 [facility] SIVE 0 MEDICAL MEDICAL [place] [address] [facility] THYROID 0 MEDICAL MEDICAL STIMULATI CTR CTR NG HORMONE TSH BLOOD [address] [facility] COUNT 0 MEDICAL MEDICAL COMPLETE CTR CTR AUTO&AUTO DIFRNTL WBC URNLS DIP 67465 [facility] 0 [facility] D STICK/TAB LET REAGENT AUTO MICROSCOP Y COLLECTIO 98997 [facility], N VENOUS 0 [facility] PU[facility] D BLOOD VENIPUNCT URE URINE 28994 [facility], 0 [facility] PU[facility] D TEST VISUAL COLOR CMPRSN METHS BASIC 13934 [facility] METABOLIC 0 [place] PANEL APOLINAR APOLINAR CALCIUM TOTAL COLLECTIO 62276 [facility] N VENOUS 0 [place] BLOOD APOLINAR APOLINAR VENIPUNCT URE GONADOTRO 85425 [facility] PIN 0 [place] CHORIONIC APOLINAR APOLINAR QUALITATI VE BLOOD 77905 [facility] COUNT 0 [place] COMPLETE APOLINAR APOLINAR AUTO&AUTO DIFRNTL WBC URNLS DIP 66488 [facility] 0 [place] STICK/TAB AP[facility]INAR APOLINAR LET RGNT AUTO W/O MICROSCOP Y URINE 73353 [facility], 0 [facility] PUJA D TEST VISUAL COLOR CMPRSN METHS RHEUMATOI 99130 [facility] D FACTOR 0 MEDICAL MEDICAL QUALITATI CTR CTR VE ANTINUCLE 60681 [facility] ST [place] AR 0 MEDICAL MEDICAL ANTIBODIE CTR CTR S LULU COLLECTIO 48854 [facility], N VENOUS 0 [facility]ESS [facility]OSPITAL PUJA D BLOOD VENIPUNCT URE SEDIMENTA 06030 [facility] TION RATE 0 MEDICAL MEDICAL RBC [place] [address] [facility] BLOOD/URI 0 MEDICAL MEDICAL C ACID CTR CTR URINE 69641 [facility], 0 COUNTY PUJA D TEST VISUAL COLOR CMPRSN METHS URINE 25148 [facility] ST AR[facility] 0 MEDICAL MEDICAL TEST CTR CTR VISUAL COLOR CMPRSN METHS URNLS DIP 72180 [facility] ST ARPITA 0 MEDICAL MEDICAL STICK/TAB CTR CTR LET RGNT AUTO W/O MICROSCOP Y URINE 49062 BATH CO BATH CO 0 [facility] TEST CENTER CENTER VISUAL COLOR CMPRSN METHS CYTP [address] [facility] CERV/VAG 0 MEDICAL MEDICAL AUTO THIN CTR CTR LAYER PREP MNL SCREEN CYTP [address] [facility] CERV/VAG 9 MEDICAL MEDICAL AUTO THIN CTR CTR LAYER PREP MNL SCREEN IADNA 76379 [facility] BATH CO CHLAMYDIA 9 [facility] TRACHOMAT BANK ACCT IS AMPLIFIED PROBE TQ IADNA 21932 [facility]/CO BATH CO NEISSERIA 9 [facility] GONORRHOE BANK ACCT AE AMPLIFIED PROBE TQ AMINES 36380 [facility]/CO BATH CO VAGINAL 9 [facility] QUALITATI BANK ACCT VE CYTP [address] [facility] CERV/VAG 8 MEDICAL MEDICAL AUTO THIN CTR CTR LAYER PREP MNL SCREEN CYTP 87726 ST ARPIAT SLOSS, CERVICAL/ 8 [facility] 86997 [facility]LE[facility] DISCHARGE 8 CLINIC MIRAMONTE DAY MANAGEMEN T 30 MIN/< CIRCUMCIS 82959 [facility]LEJO ION 8 [facility] W/CLAMP/O TH DEV W/BLOCK HX&XM NML 43160 [facility] VALLEJO NB INFT 8 [facility] INITIATIO N DX&TX VAGINAL 74431 [facility] JONAH DELIVERY 8 CLINIC Y, DEB H ONLY W/POSTPAR CLIF CARE OTHER [address] [facility] ARTIFICIA 8 MEDICAL MEDICAL L RUPTURE CTR CTR OF MEMBRANES OTHER [address] [facility] MANUALLY 8 MEDICAL MEDICAL ASSISTED CTR CTR DELIVERY [address]15 [facility] STEVE BIOPHYSIC 8 REGIONAL II, [place] AL D PROFILE RADIOLOGY W/O PHYS NON-STRES SRVS [place] TEST[place] PREG [address] [facility] STEVE UTERUS 8 REGIONAL II, [place] REAL TIME D F/U RADIOLOGY TRNSABDL PHYS PER FETUS SRVS [address] [facility] BIOPHYSIC 8 MEDICAL MEDICAL AL CTR CTR PROFILE W/O NON-STRES S TESTING INITIAL 40943 [facility] MCJONAH OBSERVATI 8 CLINIC Y DEB H ON CARE/DAY [address] [facility] LACTATE 8 MEDICAL MEDICAL INFUSION CTR CTR UP TO 1000 CC 39819 [facility] MCBREAIRT NONSTRESS 8 CLINIC Y, DEB H TEST INJECTION J0690 [facility] 8 MEDICAL MEDICAL CEFAZOLIN CTR CTR SODIUM 500 [address] URNLS DIP [address] [facility] 8 MEDICAL MEDICAL STICK/TAB CTR CTR LET RGNT AUTO W/[place]OS[place] [address] [facility] NONSTRESS 8 MEDICAL MEDICAL TEST CTR CTR THER [address] [facility] PROPH/DX 8 MEDICAL MEDICAL NJX IV CTR CTR PUSH 1ST SBST/DRUG IV NFUS [address] [facility] HYDRATION 8 MEDICAL MEDICAL EA HR CTR CTR CULTURE [address] [facility] BACTERIAL 8 MEDICAL MEDICAL CTR CTR QUANTTATI VE COLONY COUNT URINE RINGERS J7120 [facility] LACTATE 8 MEDICAL MEDICAL INFUSION CTR CTR UP TO [address] [facility] PRSMPTV 8 MEDICAL MEDICAL PTHGNC CTR CTR ORGANISM SCRN W/COLONY ESTIMJ [address] [facility] NONSTRESS 8 MEDICAL MEDICAL TEST CTR CTR [address] [facility] STVEE BIOPHYSIC 8 REGIONAL II, [place] AL D PROFILE RADIOLOGY W/O PHYS NON-STRES [place] [address] [facility] STEVE UTERUS 8 REGIONAL II, [place] AFTER 1ST D TRIMEST RADIOLOGY PHYS GESTATION SRVS MANUAL 73.59 Steven Albarran MD DELIV NEC Encounters Encounter Start End Date Code Location Performer Type Date OFFICE 95662 [facility] 7 7 T VISIT 15 MINUTES OFFICE 71507 [facility] 7 7 T VISIT 15 MINUTES HOSPITAL [facility] - 7 7 [facility] OUTPATIEN [facility] - 7 7 [facility] OUTPATIEN [facility] ANITA [facility] 7 7 [facility] OUTPATIEN [facility] T OFFICE 44039 [facility] 7 7 T VISIT 15 MINUTES OFFICE 42578 [facility] 7 7 T VISIT [address] [facility] 6 6 [facility] EMERGENCY T VISIT PHYS MODERATE SEVERITY [facility] [place] - 6 6 [facility] T OFFICE 69302 [facility] 6 6 T VISIT 15 MINUTES OFFICE 16904 [facility] 6 6 T VISIT [address] [facility] 6 6 T VISIT 15 MINUTES [facility]OSP[facility] [place] - 6 6 [facility] T [facility]OSP[facility] [place] - 6 6 [facility] T OFFICE 75506 [facility] 6 6 T VISIT 25 MINUTES [facility] [place] - 6 6 [facility] T HOSPITAL [place] [facility] 6 6 [facility] T EMERGENCY 64571 [place] 6 6 [facility] T VISIT MODERATE [facility]VERITY [facility] [place] - 6 6 [facility] T EMERGENCY 10213 [facility] II 6 6 [facility] EMERGENCY T VISIT PHYS HIGH/URGE NT SEVERITY [facility]OSP[facility] [place] - 6 6 [facility] T EMERGENCY 67860 [place] 6 6 [facility] T VISIT HIGH/URGE NT SEVERITY [facility] [place] - 5 5 [facility] T EMERGENCY 00245 [place] 5 5 [facility] T VISIT LOW/MODER SEVERITY EMERGENCY 63650 [facility] 5 [facility] EMERGENCY T VISIT PHYS MODERATE SEVERITY [facility] [place] - 4 4 [facility] T EMERGENCY 74489 [facility] 4 4 [facility] EMERGENCY T VISIT PHYS MODERATE SEVERITY EMERGENCY 02300 [facility] 4 4 [facility] EMERGENCY T VISIT PHYS MODERATE SEVERITY [facility]OSP[facility] [place] - 4 4 [facility] T EMERGENCY 98317 [place] 4 4 [facility] T VISIT LIMITED/M INOR PROB EMERGENCY 08287 EILEEN II EILEEN II 4 4 [facility] T VISIT MODERATE SEVERITY OFFICE 40522 [facility] 4 4 T VISIT [address] [facility] 4 4 T VISIT 15 MINUTES EMERGENCY 48730 SWINEY SWINEY 3 3 PAT [facility]IS[facility] MODERATE SEVERITY EMERGENCY 85273 CELLAROSI CELLAROSI 3 3 - YORBA - YORBA DEPARTMEN PAT PAT T VISIT MODERATE SEVERITY OFFICE 21671 [facility] 3 3 T VISIT 15 MINUTES EMERGENCY 63024 DORCAS TOSCANO 3 3 EDW ED[facility] T VISIT MODERATE SEVERITY [facility] [place] - 3 3 [facility] T EMERGENCY 65708 CELLAROSI CELLAROSI 3 3 - YORBA - YORBA [facility] PAT T VISIT MODERATE SEVERITY EMERGENCY 80589 [facility] 3 3 [facility] T VISIT LOW/MODER SEVERITY OFFICE 48811 [facility] 3 3 T NEW 45 MINUTES Inpatient IMP Anita Albarran MD (IN) 3 13:40 3 11:11 [facility] ANITA - 3 3 [facility] INPATIENT [facility] HOSPITAL [place] - 3 3 [facility] T EMERGENCY 94677 [facility] 3 3 [facility] T VISIT HIGH/URGE NT SEVERITY HOSPITAL ANITA - 3 3 [facility] OUTPATIEN [facility] T OFFICE 65370 [facility] 3 3 [facility] T VISIT 15 MINUTES EMERGENCY 60461 [place] 3 3 [facility] T VISIT HIGH/URGE NT SEVERITY [facility]OS[facility]ITAL [facility] 3 [facility] T OFFICE 06611 [facility] 3 3 MONE T NEW 30 MINUTES OFFICE 40789 [facility] 2 2 SABINO SABINO T NEW 30 MINUTES OFFICE 57749 [facility] OUT[facility] 2 2 [facility] T VISIT DEPT DEPT 15 MINUTES OFFICE 54414 [facility] OUTPATIEN 2 2 [facility]ALTH [facility] T VISIT DEPT DEPT 10 MINUTES OFFICE 39885 [facility] 2 2 SAY SAY T VISIT 15 MINUTES HOSPITAL [facility] - 2 2 MEDICAL OUTPATIEN [facility] UNIVERSIT - 2 2 [facility] T OFFICE 29364 UN[facility]ERSIT OUTPATIEN 2 2 Y T VISIT 5 [facility] UNIVERS[facility] - 2 2 [facility] UNIVERSIT - 2 2 [facility] UNIVERSIT - 2 2 [facility] T OFFICE 72007 [facility] 2 2 HEALTH [facility] T NEW 30 CLINIC OF MINUTES [facility] UNIVERSIT - 2 2 [facility] T EMERGENCY 81838 [facility] 2 2 [facility] T VISIT HIGH/URGE NT SEVERITY [facility]OS[facility]ITAL [facility] 2 2 [facility] T HOSPITAL UNIVERSIT - 2 2 Y [facility] T OFFICE 47197 [facility] 2 2 Y T VISIT 5 [facility] UNIVERSIT - 2 2 Y [facility] [place] - 2 2 [facility] T EMERGENCY 78295 [facility] 2 2 [facility] T VISIT HIGH/URGE NT SEVERITY [facility]OS[facility]ITAL [facility] 2 2 [facility] T EMERGENCY 32421 [facility] 2 2 [facility] T VISIT MODERATE SEVERITY OFFICE 97994 ISHA Gillis OUTPATIEN 2 2 T VISIT 15 MINUTES EMERGENCY 69651 [facility] 2 2 N [facility] T VISIT HOSPITA LOW/MODER SEVERITY [facility]OSPITAL [facility] - 2 2 [facility] T HOSPITA EMERGENCY 47293 MINISTERIO MANDEL 2 2 [facility] T VISIT MODERATE SEVERITY OFFICE 54534 ISHA Gillis OUTPATIEN 2 2 T NEW 45 MINUTES OFFICE 00442 [facility] 1 1 [facility] T VISIT 10 MINUTES EMERGENCY 20375 [facility] 1 1 [facility] T VISIT MODERATE SEVERITY EMERGENCY 73598 [facility] DEPT 1 1 [facility] VISIT HIGH EMERGENCY SEVERITY& [facility] - [address] T OFFICE 62338 [facility] OUTPATI[facility] 1 1 COUNTY OZZ[facility] T VISIT [address] [facility] - [address] T EMERGENCY 97300 [facility] 1 1 REGIONAL DEPARTMEN T VISIT EMERGENCY HIGH/URGE NT SEVERITY OFFICE 31042 [facility] BR[facility]AG[facility] OUTPATIEN 1 1 COUNTY KIMBERLY T VISIT 15 MINUTES [facility] - 1 1 [place] T EMERGENCY 99998 [facility] 1 1 MICHAEL PHI DEPARTMEN EMERGENCY T VISIT PHYS MODERATE SEVERITY [facility]PITAL [facility] - [address] T OFFICE 39790 [facility] OUTPATIEN 1 1 [facility] T VISIT WOMEN'S 15 CARE MINUTES OFFICE 03320 [facility] OUTPATIEN 1 1 [facility] T VISIT 15 MINUTES OFFICE 02725 [facility] OUTPATIEN 1 1 [facility] T VISIT 15 MINUTES EMERGENCY 44740 [facility] 0 0 REGIONAL DEPARTMEN T VISIT EMERGENCY HIGH/URGE NT SEVERITY [facility]ITAL [facility] - [address] EMERG[address] [facility] [address] T VISIT LOW/MODER SEVERITY OFFICE 32180 [facility] OUTPATIEN 0 0 [facility] T VISIT 15 MINUTES OFFICE 23606 [facility]PATI[facility] 0 0 [facility] T VISIT [address] [facility] - [address] [facility] [address] T VISIT LOW/MODER SEVERITY HOSPITAL ST [facility] - [address] EMERGENCY [address] [facility] [address] T VISIT LOW/MODER SEVERITY EMERGENCY [address]8615 [facility] [address] T VISIT HIGH/URGE NT SEVERITY [facility]OSPITAL [facility] - [address] T EMERGENCY 12107 [facility] SIE DEPARTMEN T VISIT EMERGENCY HIGH/URGE NT SEVERITY [facility]PITAL [facility] - [address] T EMERGENCY [address] [facility] [address] T VISIT LOW/MODER SEVERITY OFFICE 16195 JEANINE OUTPATIEN 0 0 [facility] T VISIT WOMEN'S 10 CARE MINUTES OFFICE 76585 [facility] M[facility]O OUTPATIEN 0 0 CLINIC CE T VISIT 15 MINUTES OFFICE 80697 [facility]DY SANDOVAL CONSULTAT 0 0 HOPE DON ION IIIPSC NEW/ESTAB N02 PATIENT 30 MIN OFFICE 07200 [facility] OUTPATIEN [facility] 0 [facility] [place] T VISIT 15 MINUTES OFFICE 83289 [facility] HOGANI OUTPATIEN 0 0 CLINIC CE T VISIT 15 MINUTES OFFICE 99749 [facility] KRISHNAHARI OUTPATIEN 0 0 CLINIC CE T VISIT 15 MINUTES EMERGENCY 72459 [facility] DEPT 0 0 EMERGENCY CAR VISIT SERVICES HIGH SEVERITY& THREAT FUNCJ OFFICE 89308 [facility] OUTPATIEN 0 0 CLINIC CE T VISIT 15 MINUTES OFFICE 30590 [facility], OUTPATIEN 0 0 CLINIC ENAWGAW T VISIT 15 MINUTES OFFICE 86221 [facility], CONSULTAT 0 0 CLINIC ENAWGAW ION NEW/ESTAB PATIENT [address] [facility] 0 [address] [facility] T PERIODIC 84790 BATH CO BATH CO PREVENTIV 0 0 [facility] CENTER PATIENT 18-[address] [facility] - 0 [address] [facility] T OFFICE 48142 [facility], [facility]PATIEN 0 0 [facility] PU[facility] D T VISIT [address] [facility] - 0 0 [facility]EN [facility] T [facility] - 0 0 [facility] OUTPATIEN [facility] T EMERGENCY 79723 [facility] 0 0 [facility] T VISIT HIGH/URGE NT SEVERITY OFFICE 42749 [facility], [facility]PATIEN 0 0 [facility] PU[facility] D T VISIT 15 MINUTES OFFICE 30751 [facility], [facility]PATIEN 0 0 [facility] T VISIT [address] [facility] - [facility] [address] [facility] T OFFICE 81131 [facility], OUTPATIEN 0 0 [facility] D T VISIT [address] [facility] [facility] T VISIT EMERGENCY AM HIGH/URGE PHYS NT SEVERITY [facility] 0 [facility] OUTPATIEN [facility] T EMERGENCY [id number] [facility] 0 0 [facility]PART[facility] T VISIT MODERATE SEVERITY OFFICE [id number] [facility] OUTPATIEN 0 0 [facility] C[facility] [address] [facility] 0 0 MEDICAL OUTPATIEN CTR T OFFICE 27601 [facility], OUTPATIEN 9 9 [facility] T NEW [address] [facility] - 9 9 MEDICAL OUTPATIEN CTR T PERIODIC 00448 DHS/CO BATH CO PREVENTIV 9 9 [facility] PATIENT [facility]ANK ACCT [id number] [facility] [place] [id number] 8 MEDICAL OUTPATIEN CTR [facility] [place] [address] 8 MEDICAL INPATIENT CTR OFFICE 74401 [facility] OUTPATI 8 8 CLINIC Y, DEB H T VISIT 15 MINUTES [facility] [place] [address] 8 MEDICAL OUTPATIEN CTR [facility] [place] [address] 8 MEDICAL OUTPATIEN CTR T OFFICE 25857 [facility] 8 8 MEDICAL T VISIT CTR 15 [facility] [place] [address] 8 MEDICAL OUTPATIEN CTR [facility] [place] [address] 8 MEDICAL OUTPATIEN CTR T OFFICE 52991 [facility] 8 8 MEDICAL T VISIT 5 CTR MINUTES OFFICE 42807 [facility] WH[facility] OUTPATIEN 8 8 CLINIC Y, DEB H T VISIT 15 MINUTES OFFICE 63425 [facility] OUTPATIEN 8 8 CLINIC Y, DEB H T VISIT 15 MINUTES
--- OUTSIDE RECORDS SUMMARY | 2017-05-06 01:54 | External Medical Summary Rpt ---
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 STATUTE MILE RADIOLOGI 14620 ST [facility] [place] C 1 REGIONAL SANDY EXAMINATI RADIOLOG ON CHEST SINGLE VIEW FRONTAL ECG [address] [facility] BOOKER ROUTINE 1 MEDICAL SANDY ECG CENTER W/LEAST 12 LDS I&R ONLY URINE [address] [facility] [address] VISUAL COLOR CMPRSN METHS ECG [address] [facility] ROUTINE [address] W/LEAST 12 LDS TRCG ONLY W/O I&R THERAPEUT 54741 [facility] IC 1 [facility] OZZY PROPHYLAC TIC/DX INJECTION SUBQ/IM BLOOD [address] [facility] COUNT [address] AUTO&AUTO DIFRNTL WBC THER [address] [facility] PROPH/DX [address] PUSH SINGLE/1S T SBST/DRUG URINE [address] [facility] [address] [place] [address] [facility] INFLUENZA 1 MEDICAL MEDICAL A/[place] [address] [facility] INFUSION [address] EACH ADDITIONA L HOUR RADIOLOGI 95228 [facility] STEVE II C EXAM 1 TRAVELING REPAIR ACCOUNTANT CHEST 2 RADIOLOG VIEWS FRONTAL&L ATERAL COLLECTIO [address] [facility] N VENOUS [address] VENIPUNCT URE INJECTION J1885 [facility] [address] TROMETHAM INE PER [address] [facility] SIVE [address] PANEL URNLS DIP [address] [facility] 1 MEDICAL MEDICAL STICK/TAB CT CT LET REAGENT AUTO MICROSCOP Y CYTP [address] [facility] CERV/VAG [address]O [address] LAYER PREP MNL SCREEN URINE 03674 [place] [facility] 1 [facility] KIMBERLY TEST VISUAL COLOR CMPRSN METHS URNLS DIP [address] KIMBERLY STICK/TAB LET RGNT AUTO W/O MICROSCOP Y COLLECTIO [address] [facility] N VENOUS [address] VENIPUNCT URE THERAPEUT [address] [facility] IC [address] [place] [address] [facility] INFUSION 0 MEDICAL MEDICAL THERAPY/P CT CT ROPHYLAXI S /DX 1ST TO [address] IN[address] [facility] [address] ON HCL PER [address] [place] [address] [facility] INFUSION [address] EACH ADDITIONA L HOUR INCISION 95804 [facility] DIJENG & 0 REGIONAL SES DRAINAGE ABSCESS EMERGENCY COMPLICAT ED/MULTIP LE COMPREHEN [address] [facility] SIVE [address] [place] [address] [facility] INFUSION [address] PROPHYLAX IS/DX EA HOUR CULTURE [address] [facility] BACTERIAL [address] AEROBIC W/ID ISOLATES SUSCEPTIB [address] [facility] LTY STDY [address] IAL MICRO/AGA R DILUTJ BLOOD [address] [facility] COUNT [address] AUTOMATED INJECTION J2175 [facility] [address] E HCL PER [address] B[address] [facility] COUNT [address] MCRSCP W/MNL DIFRNTL WBC COUNT CUL BACT [address] [facility] AEROBIC [address] METHS DEFINITIV E EA ISOL ORTHOPANT 10253 FREDDY Hitchcock JAIME OGRAM 0 [place] [address] [place] [address] [place] GAL[place] JAM HEAD/BRAI 0 RADIOLOGY N W/O CONTRAST MATERIAL ELECTROEN [address] [facility] CEPHALOGR 0 MEDICAL MEDICAL AM W/REC CTR CTR AWAKE&ASL EEP ELECTROEN 09345 [facility] MOMO, CEPHALOGR 0 CLINIC ENAWGAW AM W/REC AWAKE&SIDRA WSY IADNA 31375 [facility] BATH CO CHLAM[facility]DIA [facility] TRACHOMAT IS AMPLIFIED PROBE TQ URINE 30773 [facility] CO 0 [facility] CENTER VISUAL COLOR CMPRSN METHS IADNA 80624 BATH [facility] BATH CO NEISSERIA 0 [facility]ENTER GONORRHOE AE AMPLIFIED PROBE TQ URINE [address] [facility] 0 MEDICAL MEDICAL TEST CTR [place] [address] [facility] HEAD/BRAI 0 MEDICAL MEDICAL N W/O & CTR CTR W/CONTRAS T MATERIAL COLLECTIO [address] [facility] N VENOUS 0 MEDICAL MEDICAL BLOOD CTR CTR VENIPUNCT URE COMPREHEN [address] [facility] SIVE 0 MEDICAL MEDICAL METABOLIC CTR CTR PANEL COLLECTIO 20014 [facility], N VENOUS 0 [place] BLOOD VENIPUNCT URE URINE 32504 [facility], 0 [facility] TEST [place] [address] [facility] THYROID 0 MEDICAL MEDICAL STIMULATI CTR CTR NG HORMONE TSH URNLS DIP 33238 [facility] [place], 0 [place] PU[place] D STICK/TAB LET REAGENT AUTO MICROSCOP Y BLOOD 54713 [facility] COUNT 0 MEDICAL MEDICAL COMPLETE CTR CTR AUTO&AUTO DIFRNTL WBC GONADOTRO 53213 [facility] PIN 0 [place] [facility]OR[facility] APOLINAR APOLINAR QUALITATI VE BLOOD 97880 [facility] COUNT 0 [place] COMPLETE APOLINAR APOLINAR AUTO&AUTO DIFRNTL WBC BASIC 30056 [facility] METABOLIC 0 [place] PANEL APOLINAR APOLINAR CALCIUM TOTAL COLLECTIO 88784 [facility] N VENOUS 0 [place] BLOOD APOLINAR APOLINAR VENIPUNCT URE URNLS DIP 93723 [facility] 0 [place] STICK/TAB APOLINAR APOLINAR LET RGNT AUTO W/O MICROSCOP Y URINE 11234 [facility], 0 [place] PU[place] D TEST VISUAL COLOR CMPRSN METHS SEDIMENTA 13260 [facility] TION RATE 0 MEDICAL MEDICAL RBC [place] [address] [facility] BLOOD/URI 0 MEDICAL MEDICAL C ACID CTR CTR RHEUMATOI 19120 [facility] D FACTOR 0 MEDICAL MEDICAL QUALITATI CTR CTR VE ANTINUCLE 90106 [facility] AR 0 MEDICAL MEDICAL ANTIBODIE CTR CTR S LULU COLLECTIO 48595 [facility], N VENOUS 0 [place] [facility] D BLOOD VENIPUNCT URE URINE 28829 [facility], 0 [facility] PU[facility] D TEST VISUAL COLOR CMPRSN METHS URINE 77138 [facility] ST [facility] 0 MEDICAL MEDICAL TEST CTR CTR VISUAL COLOR CMPRSN METHS URNLS DIP 39996 [facility] STICK/TAB CTR CTR LET RGNT AUTO W/O MICROSCOP Y URINE 17136 BATH CO BATH CO 0 [facility] CENTER VISUAL COLOR CMPRSN METHS CYTP [address] [facility] CERV/VAG 0 MEDICAL MEDICAL AUTO THIN CTR CTR LAYER PREP MNL SCREEN IADNA 86997 [facility]/CO BATH CO CHLAMYDIA 9 [facility] TRACHOMAT BANK ACCT IS AMPLIFIED PROBE TQ CYTP [address] [facility] CERV/VAG 9 MEDICAL MEDICAL AUTO THIN CTR CTR LAYER PREP MNL SCREEN AMINES 48412 [facility]/CO BATH CO VAGINAL 9 [facility] QUALITATI BANK ACCT VE IADNA 06832 [facility]/CO BATH CO NEISSERIA 9 [facility] GONORRHOE BANK ACCT AE AMPLIFIED PROBE TQ CYTP [address] [facility] CERV/VAG 8 MEDICAL MEDICAL AUTO THIN CTR CTR LAYER PREP MNL SCREEN CYTP 37884 ST [facility] SLOSS, CERVICAL/ 8 MEDICAL [facility] 95982 [facility] VALLEJO, DISCHARGE [address] [facility] DAY MANAGEMEN T 30 MIN/< CIRCUMCIS 67149 [facility] VAL[place]JO ION [address] [facility] W/CLAMP/O TH DEV W/BLOCK HX&XM NML 60080 [facility] [place] NB INFT [address] [facility] INITIATIO N DX&TX OTHER [address] [facility] MANUALLY 8 MEDICAL MEDICAL ASSISTED CTR CTR DELIVERY OTHER [address] [facility] ARTIFICIA 8 MEDICAL MEDICAL L RUPTURE CTR CTR OF MEMBRANES VAGINAL 79769 [facility] CORNELIOBREAIRT DELIVERY 8 CLINIC Y DEB H ONLY W/POSTPAR CLIF CARE 23504 [facility] STEVE BIOPHYSIC 8 REGIONAL [place] HUBER D PROFILE RADIOLOGY W/O PHYS NON-STRES SRVS S TESTING US PREG [address]46 [facility] STEVE UTERUS 8 REGIONAL [place] HUBER REAL TIME D F/U RADIOLOGY TRNSABDL PHYS PER FETUS SRVS [address]674 [facility] ANNA BIOPHYSIC 8 REGIONAL OLLIE CHUNG PROFILE RADIOLOGY W/O PHYS NON-STRES SRVS S TESTING INITIAL 56525 [facility] GRIMESBREAIRT OBSERVATI 8 CLINIC Y, DEB H ON CARE/DAY [address] [facility] 8 MEDICAL MEDICAL CEFAZOLIN CTR CTR SODIUM [address] [facility] LACTATE 8 MEDICAL MEDICAL INFUSION CTR CTR UP TO 1000 CC 05686 [facility] MCBREAIRT NONSTRESS 8 CLINIC Y, DEB H TEST [address] [facility] NONSTRESS 8 MEDICAL MEDICAL TEST CTR CTR THER [address] [facility] PROPH/DX 8 MEDICAL MEDICAL NJX IV CTR CTR PUSH 1ST SBST/DRUG CULTURE [address] [facility] BACTERIAL 8 MEDICAL MEDICAL CTR CTR QUANTTATI VE COLONY COUNT URINE [place] NFUS [address] [facility] HYDRATION 8 MEDICAL MEDICAL EA HR CTR CTR RINGERS J7120 [facility] LACTATE 8 MEDICAL MEDICAL INFUSION CTR CTR UP TO [address] D[address] [facility] 8 MEDICAL MEDICAL STICK/TAB CTR CTR LET RGNT AUTO W/O MICROSCOP Y CUL [address] [facility] PRSMPTV 8 MEDICAL MEDICAL PTHGNC CTR CTR ORGANISM SCRN W/COLONY ESTIMJ [address] [facility] NONSTRESS 8 MEDICAL MEDICAL TEST CTR CTR US PREG [address]47 [facility] STEVE UTERUS 8 REGIONAL II, [place] AFTER 1ST D TRIMEST RADIOLOGY PHYS GESTATION SRVS [address] [facility] BIOPHYSIC 8 MEDICAL MEDICAL AL CTR CTR PROFILE W/O NON-STRES S TESTING Encounters Encounter Start End Date Code Location Performer Type Date OFFICE 44558 [facility] 7 7 T VISIT 15 MINUTES OFFICE 06288 [facility] 7 7 T VISIT [address] [facility] 7 [facility] 7 7 [facility] OFF[facility] 70957 [facility] 7 7 T VISIT 15 MINUT[facility] OFFICE 45537 [facility] 7 7 T VISIT 25 MINUTES HOSP[facility] [place] [facility] 6 6 [facility] T EMERGENCY 87986 [place] 6 6 [facility] T VISIT MODERATE SEVERITY OFFICE 55125 [facility] 6 6 T VISIT 15 MINUTES OFFICE 28150 [facility] 6 6 T VISIT 15 MINUTES OFFICE 78599 [facility] 6 6 T VISIT 15 MINUTES [facility] [place] [facility] 6 6 [facility] T [facility]OS[facility] [place] - 6 6 [facility] T OFFICE 47244 [facility] 6 6 T VISIT 25 MINUTES [facility]OSP[facility] [place] - 6 6 [facility] T HOSPITAL [place] - 6 6 [facility] T EMERGENCY 92228 [place] 6 6 [facility] T VISIT MODERATE [facility]VERITY HOSPITAL [place] - 6 6 [facility] T EMERGENCY 89035 [facility] 6 6 [facility] EMERGENCY T VISIT PHYS HIGH/URGE NT SEVERITY EMERGENCY 48967 [place] 6 6 [facility] T VISIT HIGH/URGE NT SEVERITY HOSPITAL [place] - 6 6 [facility] T EMERGENCY 17179 [place] 5 5 [facility] T VISIT LOW/MODER SEVERITY EMERGENCY 15743 [facility] 5 [facility] EMERGENC[facility] T VISIT PHYS MODERATE SEVERITY [facility]OSP[facility] [place] - 5 5 [facility] [place] - 4 4 [facility] T EMERGENCY 47263 [facility] 4 4 [facility] EMERGENCY T VISIT PHYS MODERATE SEVERITY EMERGENCY 71694 [facility] 4 4 [facility] EMERGENCY T VISIT PHYS MODERATE SEVERITY HOSPITAL [place] - 4 4 [facility] T EMERGENCY 20843 [place] 4 4 [facility] T VISIT LIMITED/M INOR PROB EMERGENCY 51821 [facility] II [facility] II 4 [facility] MOD[facility]ATE SEVERITY OFFICE 04418 [facility] 4 T VISIT 15 MINUTES OFFICE 21004 [facility] 4 4 T VISIT 15 MINUTES EMERGENCY 54194 SWINEY SWINEY 3 3 PAT PAT DEPARTMEN T VISIT MODERATE SEVERITY EMERGENCY 71285 CELLAROSI CELLAROSI 3 3 - YORBA - YORBA DEPARTMEN PAT PAT T VISIT MODERATE SEVERITY OFFICE 13304 [facility] 3 3 T VISIT 15 MINUTES EMERGENCY 40963 DORCAS TOSCANO 3 3 EDW EDW DEPARTMEN T VISIT MODERATE SEVERITY EMERGENCY 20186 CELLAROSI CELLAROSI 3 3 - YORBA - YORBA DEPARTMEN PAT PAT T VISIT MODERATE SEVERITY EMERGENCY 23150 [place] 3 3 [facility] T VISIT LOW/MODER SEVERITY HOSPITAL [place] - 3 3 [facility] T OFFICE 02654 [facility] OUTPATIEN 3 3 T NEW 45 MINUTES HOSPITAL ANITA - 3 3 [facility] INPATIENT INC EMERGENCY 75203 [facility] 3 [facility] T VISIT [facility]IGH/URGE NT SEVERITY [facility]OSPITAL [facility] 3 [facility] HOSPITAL ANITA - 3 3 [facility]EN [facility] 98903 [facility] 3 3 KHLOE KHLOE T VISIT 15 MINUTES EMERGENCY 14146 [place] 3 3 [facility] T VISIT HIGH/URGE NT SEVERITY HOSPITAL [place] - 3 3 [facility] T OFFICE 79557 [place] [facility] 3 3 MONE T NEW 30 MINUTES OFFICE 83375 DICKEY DICKEY OUTPATIEN 2 2 SABINO SABINO T NEW 30 MINUTES OFFICE 64522 [facility]SE [facility] [place] JOSE [place] [place] OUTPATIEN 2 2 HEALTH [facility]ALTH T VISIT DEPT DEPT 15 MINUTES OFFICE 35096 JOSE [place] JOSE [place] OUTPATIEN 2 2 HEALTH HEALTH T VISIT DEPT DEPT 10 MINUTES OFFICE 94359 [facility] OUTPATI 2 2 SAY SAY T VISIT 15 MINUTES HOSPITAL [facility] 2 2 MEDICAL OUTPATIEN [facility] - [address] [facility] T OFFICE 67746 [facility] 2 2 Y T VISIT [facility] - 2 2 [facility] - 2 2 [facility] - 2 2 [facility] T OFFICE 39185 [facility] [place] [facility] 2 2 [facility] NEW 30 CLINIC OF MINUTES [facility] - 2 2 [facility] [place] - 2 2 [facility] T EMERGENCY 93603 [facility] 2 2 [facility] T VISIT HIGH/URGE NT SEVERITY HOSPITAL [facility] [address] [facility] T OFFICE 33392 [facility] 2 2 Y T VISIT 5 HOSPITAL [facility] UNIV[facility] - [address] [facility] T EMERGENCY 73112 [facility] 2 [facility] T VISIT HIGH/URGE NT SEVERITY [facility]OS[facility]ITAL [facility] 2 [facility] 2 [facility] T EMERGENCY 12542 [place] 2 2 [facility] T VISIT MODERATE SEVERITY OFFICE 86937 ISHA Gillis OUTPATIEN 2 2 T VISIT 15 MINUTES EMERGENCY 93679 [facility] 2 2 N [facility] T VISIT HOSPITA LOW/MODER SEVERITY HOSPITAL [facility] - 2 2 [facility] HOS[facility] EMERGENC[facility] 59668 MINISTERIO MANDEL 2 2 [facility] T VISIT MODERATE SEVERITY OFFICE 84745 ISHA Gillis OUTPATIEN 2 2 T NEW [address] [facility] - 1 1 [facility] EM[facility] [address] [facility] DEPT 1 1 [facility] VISIT HIGH EMERGENCY SEVERITY& THREAT FUN EMERGENCY [address] [facility] [address] T VISIT MODERATE SEVERITY OFFICE 46654 AMY RAMÍREZ OUTPATIEN 1 1 COUNTY T VISIT 10 MINUTES OFFICE 37369 [facility] HERNANDEZ OUTPATIEN 1 1 [facility] T VISIT [address] [facility] - [address] EMERGENCY [address] [facility] 1 1 REGIONAL DEPARTMEN T VISIT EMERGENCY HIGH/URGE NT SEVERITY OFFICE 17171 [facility] OUTPATIEN 1 1 COUNTY [facility]IM[facility] T VISIT [address] [facility] - 1 1 [facility] T EMERGENCY 57936 [facility] 1 1 [facility] AP[facility] T VISIT MODERATE SEVERITY [facility] - [address] T OFFICE 73557 JEANINE OUTPATIEN 1 1 [facility] T VISIT WOMEN'S 15 CARE MINUTES OFFICE 74482 [facility] OUTPATIEN 1 1 [facility] T VISIT 15 MINUTES OFFICE 16770 [facility] OUTPATIEN 1 1 [facility] T VISIT [address] [facility] [address] T VISIT LOW/MODER SEVERITY EMERGENCY 56[address] [facility] 0 0 REGIONAL DEPARTMEN T VISIT EMERGENCY HIGH/URGE NT SEVERITY [facility]PITAL [facility] - [address] T OFFICE 49245 [facility] OUTPATIEN 0 0 [facility] T VISIT 15 MINUTES OFFICE 83433 [facility] OUTPATIEN 0 0 [facility] T VISIT [address] [facility] [address] T VISIT LOW/MODER SEVERITY [facility]OSPITAL [facility] - [address] [facility] - [address] EMERGENCY [address] [facility] [address] T VISIT LOW/MODER SEVERITY EMERGENCY [address] [facility] [address] T VISIT HIGH/URGE NT SEVERITY [facility]OSPITAL [facility] - [address] T OFFICE 65943 JEANINE OUTPATIEN 0 0 [facility] T VISIT WOMEN'S 10 CARE MINUTES EMERGENCY [address]7427 [facility] JALALON 0 0 REGIONAL SIE DEPARTMEN T VISIT EMERGENCY HIGH/URGE NT SEVERITY EMERGENCY 72431 [facility] [address] T VISIT LOW/MODER SEVERITY HOSPITAL ST [facility] - [address] T OFFICE 58440 [facility] OUTPATIEN 0 0 CLINIC CE T VISIT 15 MINUTES OFFICE 14002 [facility] 0 [facility] 30 MIN OFFICE 10568 [facility] OUTPATIEN 0 0 [facility] T VISIT 15 MINUTES OFFICE 17129 [facility] OUTPATIEN 0 0 CLINIC CE T VISIT 15 MINUTES OFFICE 11507 [facility] OUTPATIEN 0 0 CLINIC CE T VISIT 15 MINUTES EMERGENCY 90443 [facility] DEPT 0 0 EMERGENCY CAR VISIT SERVICES HIGH SEVERITY& THREAT FUNCJ OFFICE 70164 [facility] OUTPATIEN 0 0 CLINIC CE T VISIT 15 MINUTES OFFICE 54330 [facility], OUTPATIEN 0 0 CLINIC ENAWGAW T VISIT 15 MINUTES OFFICE 95984 [facility], CONSULTAT 0 0 CLINIC DIONDUTCHRoro ION NEW/ESTAB PATIENT [address] [facility] - 0 0 MED[facility] OUTPATIEN CTR T PERIODIC 61629 [facility] BATH CO PREVENTIV 0 [facility] CENTER PATIENT 18-[address] [facility] - 0 0 MEDICAL OUTPATIEN CTR T OFFICE 13037 [facility], OUTPATIEN 0 0 [facility] PUJA D T VISIT [address] [facility] - 0 0 MEDICAL OUTPATIEN CTR T [facility] - 0 0 [place] T EMERGENCY 62496 [facility], 0 0 [facility]EL Laine[facility] EMERGENCY T VISIT PHYS INC HIGH/URGE NT SEVERITY OFFICE 74044 [facility], OUTPATIEN 0 0 [facility] PUJA D T VISIT [address] [facility] - 0 0 MED[facility] OUTPATIEN CTR T OFFICE 15721 [facility], OUTPATIEN 0 0 [facility] PUJA D T VISIT 15 MINUTES OFFICE 11417 [facility], OUTPATIEN 0 0 [facility] PUJA D T VISIT [address] [facility] 0 REGIONAL R, [facility] RANDALLIA T VISIT EMERGENCY AM HIGH/URGE PHYS NT SEVERITY [facility]PITAL [facility] - 0 0 MEDICAL OUTPATIEN CTR T [facility] [address] [place] 0 0 [facility]PARTMEN CTR T VISIT MODERATE SEVERITY OFFICE [id number] [facility] OUTPATIEN [facility] [address] [place] - 0 0 MEDICAL OUTPATIEN CTR T OFFICE 59627 [facility], OUTPATIEN 9 9 [facility] PUJA D T NEW 20 MINUTES [facility] - 9 9 MEDICAL OUTPATIEN CTR T PERIODIC [id number] DHS/CO BATH CO PREVENTIV 9 9 [facility] PATIENT [facility]ANK ACCT 18-39 YRS [facility] - 8 8 MEDICAL OUTPATIEN CTR T [facility] 8 8 MEDICAL INPATIENT CTR OFFICE [id number] [facility] CLINIC Y[facility] DEB H T [facility]ISIT 15 MINUTES [facility] 8 8 [facility] [address] T OFFICE [id number] 8 8 MEDICAL T VISIT CTR 15 MINUTES [facility] [address] T OFFICE [id number] [facility] 8 8 MEDICAL T VISIT 5 CTR MINUTES [facility] 8 [address] OUTPATIEN CTR T OFFICE 94099 [facility] 8 8 CLINIC Y, DEB H T VISIT 15 MINUTES OFFICE 29605 [facility] [place] [facility] 8 8 CLINIC Y, DEB H T VISIT 15 MINUTES
--- OUTSIDE RECORDS SUMMARY | 2017-05-06 01:54 | External Medical Summary Rpt ---
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 [facility] INFUSION [address] PROPHYLAX IS/DX EA HOUR CULTURE [address] [facility] BACTERIAL [address] AEROBIC W/ID ISOLATES SUSCEPTIB [address] [facility] LTY STDY [address] IAL MICRO/AGA R DILUTJ BLOOD [address] [facility] COUNT [address] AUTOMATED INJECTION J2175 [facility] [facility] [address] E HCL PER [address] B[address] [facility] COUNT [address] MCRSCP W/MNL DIFRNTL WBC COUNT CUL BACT [address] [facility] AEROBIC [address] METHS DEFINITIV E EA ISOL ORTHOPANT 62451 FREDDY Hitchcock JAIME OGRAM [address] [address] [place] [address] [place] JAM HEAD/BRAI 0 RADIOLOGY N W/O CONTRAST MATERIAL ELECTROEN [address] [facility] CEPHALOGR 0 MEDICAL MEDICAL AM W/REC CTR CTR AWAKE&ASL EEP ELECTROEN 37393 [facility] MOMO, CEPHALOGR 0 CLINIC ENAWGAW AM W/REC AWAKE&SIDRA WSY IADNA 37269 [facility] BATH CO CHLAM[facility]DIA [facility] TRACHOMAT IS AMPLIFIED PROBE TQ URINE 48771 [facility] BATH CO 0 [facility] CENTER VISUAL COLOR CMPRSN METHS IADNA 39671 [facility] BATH CO NEISSERIA 0 [facility] CENTER GONORRHOE AE AMPLIFIED PROBE TQ URINE [address] [facility] 0 MEDICAL MEDICAL TEST CTR [place] [address] [facility] HEAD/BRAI 0 MEDICAL MEDICAL N W/O & CTR CTR W/CONTRAS T MATERIAL COLLECTIO [address] [facility] N VENOUS 0 MEDICAL MEDICAL BLOOD CTR CTR VENIPUNCT URE COMPREHEN [address] [facility] SIVE 0 MEDICAL MEDICAL METABOLIC CTR CTR PANEL COLLECTIO 95311 [facility], N VENOUS 0 [facility] BLOOD VENIPUNCT URE URINE 01533 [facility], 0 [facility] TEST [place] [address] [facility] THYROID 0 MEDICAL MEDICAL STIMULATI CTR CTR NG HORMONE TSH URNLS DIP 27398 [facility] [place], 0 [facility] STICK/TAB LET REAGENT AUTO MICROSCOP Y BLOOD 66439 [facility] COUNT 0 MEDICAL MEDICAL COMPLETE CTR CTR AUTO&AUTO DIFRNTL WBC GONADOTRO 14017 [facility] PIN 0 [place] [facility]OL[facility] APOLINAR QUALITATI VE BLOOD 84876 [facility] COUNT 0 [place] COMPLETE APOLINAR APOLINAR AUTO&AUTO DIFRNTL WBC BASIC 29115 [facility] METABOLIC 0 [place] PANEL APOLINAR APOLINAR CALCIUM TOTAL COLLECTIO 44832 [facility] N VENOUS 0 [place] BLOOD APOLINAR APOLINAR VENIPUNCT URE URNLS DIP 44635 [facility] 0 [place] STICK/TAB APOLINAR APOLINAR LET RGNT AUTO W/O MICROSCOP Y URINE 93794 [facility], 0 [facility] PU[facility] D TEST VISUAL COLOR CMPRSN METHS SEDIMENTA 45504 [facility] TION RATE 0 MEDICAL MEDICAL [place] [address] [facility] BLOOD/URI 0 MEDICAL MEDICAL C ACID CTR CTR RHEUMATOI 18529 [facility] D FACTOR 0 MEDICAL MEDICAL QUALITATI CTR CTR VE ANTINUCLE 64824 [facility] AR 0 MEDICAL MEDICAL ANTIBODIE CTR CTR S LULU COLLECTIO 88094 [facility], N VENOUS 0 [facility] D BLOOD VENIPUNCT URE URINE 52046 [facility], 0 [facility] PU[facility] D TEST VISUAL COLOR CMPRSN METHS URINE 33573 [facility] 0 MEDICAL MEDICAL TEST CTR CTR VISUAL COLOR CMPRSN METHS URNLS DIP 33237 [facility] STICK/TAB CTR CTR LET RGNT AUTO W/O MICROSCOP Y URINE 29010 BATH CO BATH CO 0 [facility] CENTER VISUAL COLOR CMPRSN METHS CYTP [address] [facility] CERV/VAG 0 MEDICAL MEDICAL AUTO THIN CTR CTR LAYER PREP MNL SCREEN IADNA 84340 DHS/CO BATH CO CHLAMYDIA 9 [facility] TRACHOMAT BANK ACCT IS AMPLIFIED PROBE TQ CYTP [address] [facility] CERV/VAG 9 MEDICAL MEDICAL AUTO THIN CTR CTR LAYER PREP MNL SCREEN AMINES 60932 [facility]/CO BATH CO VAGINAL 9 [facility] QUALITATI BANK ACCT VE IADNA 16432 DHS/CO BATH CO NEISSERIA 9 [facility] GONORRHOE BANK ACCT AE AMPLIFIED PROBE TQ CYTP [address] [facility] CERV/VAG 8 MEDICAL MEDICAL AUTO THIN CTR CTR LAYER PREP MNL SCREEN CYTP 37504 ST [facility] SLOSS, CERVICAL/ 8 MEDICAL [facility] 51062 [facility] VALLEJO, DISCHARGE 8 [facility] DAY MANAGEMEN T 30 MIN/< CIRCUMCIS 12367 [facility] ION 8 [facility] W/CLAMP/O TH DEV W/BLOCK HX&XM NML 50717 [facility] NB INFT 8 [facility] INITIATIO N DX&TX OTHER [address] [facility] MANUALLY 8 MEDICAL MEDICAL ASSISTED CTR CTR DELIVERY OTHER [address] [facility] ARTIFICIA 8 MEDICAL MEDICAL L RUPTURE CTR CTR OF MEMBRANES VAGINAL 59303 [facility] CORNELIOBREAIRT DELIVERY 8 CLINIC Y DEB H ONLY W/POSTPAR CLIF CARE 93996 [facility] STEVE BIOPHYSIC 8 REGIONAL [place] HUBER D PROFILE RADIOLOGY W/O PHYS NON-STRES SRVS S TESTING US PREG [address]204 [facility] STEVE UTERUS 8 REGIONAL [place] HUBER REAL TIME D F/U RADIOLOGY TRNSABDL PHYS PER FETUS SRVS 16412 [facility] ANNA BIOPHYSIC 8 REGIONAL OLLIE CHUNG PROFILE RADIOLOGY W/O PHYS NON-STRES SRVS S TESTING INITIAL 27617 [facility] GRIMESBREAIRT OBSERVATI 8 CLINIC Y, DEB H ON CARE/DAY [address] IN[address] [facility] 8 MEDICAL MEDICAL CEFAZOLIN CTR CTR SODIUM [address] [facility] LACTATE 8 MEDICAL MEDICAL INFUSION CTR CTR UP TO 1000 CC 77557 [facility] MCBREAIRT NONSTRESS 8 CLINIC Y, DEB H TEST [address] [facility] NONSTRESS 8 MEDICAL MEDICAL TEST CTR CTR THER [address] [facility] PROPH/DX 8 MEDICAL MEDICAL NJX IV CTR CTR PUSH 1ST SBST/DRUG CULTURE [address] [facility] BACTERIAL 8 MEDICAL MEDICAL CTR CTR QUANTTATI VE COLON[place] UR[place] NFUS [address] [facility] HYDRATION 8 MEDICAL MEDICAL EA HR CTR CTR RINGERS J7120 [facility] [address] [facility] LACTATE 8 MEDICAL MEDICAL INFUSION CTR CTR UP TO [address] D[address] [facility] 8 MEDICAL MEDICAL STICK/TAB CTR CTR LET RGNT AUTO W/O MICROSCOP Y CUL [address] [facility] PRSMPTV 8 MEDICAL MEDICAL PTHGNC CTR CTR ORGANISM SCRN W/COLONY ESTIMJ [address] [facility] NONSTRESS 8 MEDICAL MEDICAL TEST CTR CTR [place] PREG [address] [facility] STEVE UTERUS 8 REGIONAL II, [place] AFTER 1ST D TRIMEST RADIOLOGY PHYS GESTATION SRVS [address] [facility] BIOPHYSIC 8 MEDICAL MEDICAL AL CTR CTR PROFILE W/O NON-STRES S TESTING Encounters Encounter Start End Date Code Location Performer Type Date OFFICE 91135 [facility] 7 7 T VISIT 15 MINUTES OFFICE 09249 [facility] 7 7 T [facility]ISIT 15 MINUTES [address] [address] [facility] 7 [facility] 7 7 [facility] T OFFICE 48963 [facility] 7 7 T VISIT 15 MINUTES OFFICE 75348 [facility] 7 7 T VISIT 25 MINUTES HOSPITAL [place] [facility] 6 6 [facility] T EMERGENCY 91865 [place] 6 6 [facility] T VISIT MODERATE SEVERITY OFFICE 99015 [facility] 6 6 T VISIT 15 MINUTES OFFICE 67211 [facility] 6 6 T VISIT 15 MINUTES OFFICE 19757 [facility] 6 6 T VISIT 15 MINUTES [facility] [place] [facility] 6 6 [facility] T HOSPITAL [place] - 6 6 [facility] T OFFICE 80868 [facility] 6 6 T VISIT 25 MINUTES [facility]OSP[facility] [place] [facility] 6 6 [facility] T HOSPITAL [place] - 6 6 [facility] T EMERGENCY 67219 [place] 6 6 [facility] T VISIT MODERATE SEVERITY HOSPITAL [place] - 6 6 [facility] T EMERGENCY 99050 [facility] 6 6 [facility] EMERGENCY T VISIT PHYS HIGH/URGE NT SEVERITY EMERGENCY 07884 [place] 6 6 [facility] T VISIT HIGH/URGE NT SEVERITY HOSPITAL [place] - 6 6 [facility] T EMERGENCY 98241 [place] 5 5 [facility] T VISIT LOW/MODER SEVERITY EMERGENCY 86915 [facility] 5 5 [facility] EMERGENCY T VISIT PHYS MODERATE SEVERITY HOSPITAL [place] - 5 5 [facility] T HOSPITAL [place] - 4 4 [facility] T EMERGENCY 72677 [facility] 4 4 [facility] EMERGENCY T VISIT PHYS MODERATE SEVERITY EMERGENCY 07943 [facility] 4 4 [facility] EMERGENCY T VISIT PHYS MODERATE SEVERITY HOSPITAL [place] - 4 4 [facility] T EMERGENCY 88961 [place] 4 4 [facility] T VISIT LIMITED/M INOR PROB EMERGENCY 16524 EILEEN II [facility] II [facility]ATE SEVERITY OFFICE 27328 [facility] T VISIT 15 MINUTES OFFICE 86171 [facility] 4 T VISIT 15 MINUTES EMERGENCY 06044 SWINE[facility] SWINEY 3 3 PAT PAT DEPARTMEN T VISIT MODERATE SEVERITY EMERGENCY 34259 CELLAROSI CELLAROSI 3 3 - YORBA - YORBA DEPARTMEN PAT PAT T VISIT MODERATE SEVERITY OFFICE 63435 [facility] 3 T VISIT 15 MINUTES EMERGENCY 39261 DORCAS TOSCANO 3 3 EDW EDW DEPARTMEN T VISIT MODERATE SEVERITY EMERGENCY 42414 CELLAROSI CELLAROSI 3 3 - YORBA - YORBA DEPARTMEN PAT PAT T VISIT MODERATE SEVERITY EMERGENCY 77281 [place] 3 3 [facility] T VISIT LOW/MODER SEVERITY HOSPITAL [place] - 3 3 [facility] T OFFICE 21482 [facility] OUT[facility] 3 3 T NEW 45 MINUTES HOSPITAL ANITA - 3 3 [facility] EMERGENCY 48169 [facility] 3 3 [facility] T VISIT HIGH/URGE NT SEVERITY [facility]PITAL [facility] 3 3 [facility] T HOSPITAL ANITA - 3 3 [facility] OUT[facility]IEN [facility] T OFFICE 87156 [facility] 3 3 KHLOE KHLOE T VISIT 15 MINUTES EMERGENCY 83295 [place] 3 3 [facility] T VISIT HIGH/URGE NT SEVERITY [facility]OSPITAL [place] - 3 3 [facility] T OFFICE 60947 [place] [facility] 3 3 MONE T NEW 30 MINUTES OFFICE 09697 DICKEY DICKEY OUTPATIEN 2 2 SABINO SABINO T NEW 30 MINUTES OFFICE 88690 [facility] OUTPATI[facility] 2 2 [facility] T VISIT DEPT DEPT 15 MINUTES OFFICE 31140 [facility] [place] [facility] OUTPATIEN 2 2 [facility]ALTH [facility] T VISIT DEPT DEPT 10 MINUTES OFFICE 06540 [facility] OUTPATI 2 2 SAY SAY T VISIT 15 MINUTES HOSPITAL [facility] 2 2 MEDICAL OUTPATIEN [facility] - 2 2 [facility] T OFFICE 05610 [facility] 2 2 Y T VISIT [facility] - 2 2 [facility] 2 [facility] 2 2 Y [facility] T OFFICE 59239 [facility] 2 2 [facility] 30 CLINIC [facility] MINUTES [facility] UN[facility]ERS[facility] - 2 2 [facility]OSPITAL [place] - 2 2 [facility] T EMERGENCY 81033 [facility] 2 2 [facility] T VISIT HIGH/URGE NT SEVERITY HOSPITAL [facility] - 2 2 [facility] T OFFICE 49079 [facility] 2 2 Y T VISIT 5 [facility] UNIVERS[facility] - 2 2 [facility] T EMERGENCY 43739 [facility] 2 2 [facility] T VISIT HIGH/URGE NT SEVERITY [facility] 2 2 [facility] HOSPITAL [facility] 2 2 [facility] T EMERGENCY 47793 [place] 2 2 [facility] T VISIT MODERATE SEVERITY OFFICE 13869 ISHA Gillis OUTPATIEN 2 2 T VISIT 15 MINUTES EMERGENCY 50781 [facility] 2 2 N [facility] T VISIT HOSPITA LOW/MODER SEVERITY [facility] 2 2 [facility] T HOSPITA EMERGENCY 08086 MINISTER[facility] MANDEL 2 2 [facility] T VISIT MODERATE SEVERITY OFFICE 17158 ISHA Gillis OUTPATIEN 2 2 T NEW [address] [facility] - 1 1 [facility] [address] [facility] DEPT 1 1 [facility] VISIT HIGH EMERGENCY SEVERITY& THREAT FUN EMERGENCY [address] [facility] [address] T VISIT MODERATE SEVERITY OFFICE 63604 AMY RAMÍREZ OUTPATIEN 1 1 COUNTY T VISIT 10 MINUTES OFFICE 01471 [facility] HERNANDEZ OUTPATIEN 1 1 COUNTY [facility] T VISIT [address] [facility] - [address] EMER[address]ENCY [address] [facility] 1 1 REGIONAL DEPARTMEN T VISIT EMERGENCY HIGH/URGE NT SEVERITY OFFICE 03513 [facility] OUTPATIEN 1 1 COUNTY [facility]IM[facility] T VISIT [address] BIBI - 1 1 [facility] APOL[facility] T EMERGENCY 62450 [facility] T VISIT MODERATE SEVERITY [facility]OSPITAL [facility] - [address] T OFFICE 07269 JEANINE OUTPATIEN 1 1 [facility] SANDY T VISIT WOMEN'S 15 CARE MINUTES OFFICE 96180 [facility] OUTPATIEN 1 1 [facility] KIMBERLY T VISIT 15 MINUTES OFFICE 41775 [facility] OUTPATIEN 1 1 COUNTY KIM[facility] T VISIT [address] [facility] [address] T VISIT LOW/MODER SEVERITY EMERGENCY 50417 [facility] 0 0 REGIONAL DEPARTMEN T VISIT EMERGENCY HIGH/URGE NT SEVERITY [facility]OSPITAL [facility] - [address] T OFFICE 55561 [facility] OUTPATIEN 0 0 [facility] KIMBERLY T VISIT 15 MINUTES OFFICE 17661 [facility] OUTPATIEN 0 0 [facility] KIMBERLY T VISIT [address] [facility] [address] T VISIT LOW/MODER SEVERITY HOSPITAL [facility] - [address] [facility] [facility] - [address] EMERGENCY [address] [facility] [address] T VISIT LOW/MODER SEVERITY EMERGENCY [address] [facility] [address] T VISIT HIGH/URGE NT SEVERITY HOSPITAL [facility] - [address] T OFFICE 87822 JEANINE OUTPATIEN 0 0 [facility] SANDY T VISIT WOMEN'S 10 CARE MINUTES EMERGENCY [address] [facility] JALALON 0 0 REGIONAL SIE DEPARTMEN T VISIT EMERGENCY HIGH/URGE NT SEVERITY EMERGENCY [address] [facility] [address] T VISIT LOW/MODER SEVERITY [facility]PITAL [facility] - [address] T OFFICE 73423 [facility] M[facility] OUTPATIEN 0 0 CLINIC CE T VISIT 15 MINUTES OFFICE 45888 FREDDY SANDOVAL CONSULTAT 0 0 [facility]02 [facility]IENT 30 MIN OFFICE 57806 [facility] OUTPATIEN 0 0 COUNTY KIMBERLY T VISIT 15 MINUTES OFFICE 21078 [facility] OUTPATIEN 0 0 CLINIC CE T VISIT 15 MINUTES OFFICE 95424 [facility] OUTPATIEN 0 0 CLINIC CE T VISIT 15 MINUTES EMERGENCY 24360 [facility] VILLATORO DEPT 0 0 EMERGENCY CAR VISIT SERVICES HIGH SEVERITY& THREAT FUNCJ OFFICE 91977 [facility] OUTPATIEN 0 0 CLINIC CE T VISIT 15 MINUTES OFFICE 09595 [facility], OUTPATIEN 0 0 CLINIC ENAWGAW T VISIT 15 MINUTES OFFICE 37338 [facility], CONSULTAT 0 0 CLINIC DIONDUTCHRoro ION NEW/ESTAB PATIENT [address] [facility] - 0 [facility]PATIEN CTR T PERIODIC 51928 BATH CO BATH CO PREVENTIV 0 0 [facility] EST CENTER CENTER PATIENT 18-[address] [facility] - 0 0 MEDICAL OUTPATIEN CTR T OFFICE 19140 [facility], OUTPATIEN 0 0 [facility] D T VISIT [address] [facility] - 0 0 MEDICAL OUTPATIEN CTR T [facility] - 0 0 [facility] T EMERGENCY 52256 [facility], 0 0 [facility] EMERGENCY T VISIT PHYS INC HIGH/URGE NT SEVERITY OFFICE 50532 [facility], OUTPATIEN 0 0 [facility] T VISIT [address] [facility] - 0 0 MEDICAL OUTPATIEN CTR T OFFICE 50211 [facility], OUTPATIEN 0 0 [facility] T VISIT 15 MINUTES OFFICE 40886 [facility], OUTPATIEN 0 0 [facility] PUJA D T VISIT [address] [facility] T VISIT EMERGENCY AM HIGH/URGE PHYS NT SEVERITY [facility] - 0 0 MEDICAL OUTPATIEN CTR T EMERGENCY [address]86 [facility] 0 [address] T VISIT MODERATE SEVERITY OFFICE 58073 BATH CO BATH CO OUTPATIEN 0 0 [facility] T VISIT CENTER CENTER [address] [facility] - 0 0 MEDICAL OUTPATIEN CTR T OFFICE 24090 [facility], OUTPATIEN 9 9 [facility] PUJA D T NEW 20 MINUTES [facility] - 9 9 MEDICAL OUTPATIEN CTR T PERIODIC 34808 DHS/CO BATH CO PREVENTIV 9 9 [facility] PATIENT BANK ACCT 18-39 YRS [facility] - 8 8 MEDICAL OUTPATIEN CTR T [facility] 8 8 MEDICAL INPATIENT CTR [facility] 84715 [facility] Y, DEB H T VISIT 15 MINUTES [facility] 8 8 MEDICAL OUTPATIEN CTR [facility] [address] [facility] 35333 [facility] 8 8 MEDICAL T VISIT CTR 15 MINUTES [facility] [address] T OFFICE 18689 [facility] 8 8 MEDICAL T VISIT 5 CTR MINUTES [facility] 8 [address] T OFFICE 80131 [facility] WHITTAKERT OUTPATIEN 8 8 CLINIC Y, DEB H T VISIT 15 MINUTES OFFICE 30162 [facility] [place] OUTPATIEN 8 8 CLINIC Y, DEB H T VISIT 15 MINUTES
--- OUTSIDE RECORDS SUMMARY | 2017-05-06 01:55 | External Medical Summary Rpt ---
Author Author , SANA HOOD Address Unknown Phone [email or web address] Support Name Relationship Address Phone JOSE, Next Of Kin Unknown Unavailable MUNIR Immunization Name Date Rout CVX Reac Dose Comm Prov Is Faci e tion ent ider Refu lity Give sed n Infl 03-2 150 0.5 Hist H109 No H109 uenz 1-20 mL oric a 17 al Quad Info Inj rmat ion - Sour ce Unsp ecif ied Infl 01-2 140 0.5 Hist [facility] No [facility] uenz 3-20 mL oric 1 1 a, 14 al P-Fr Info ee rmat ion - Sour ce Unsp ecif ied Hep 09-2 8 999 Hist H106 No H106 B, 5-20 oric ped/ 01 al adol Info rmat ion - Sour ce Unsp ecif ied Hep 04-1 8 999 Hist H106 No H106 B, 6-20 oric ped/ 01 al adol Info rmat ion - Sour ce Unsp ecif ied Td 03-1 9 999 Hist H106 No H106 (jaky 6-20 oric lt), 01 al Info adso rmat rbed ion - Sour ce Unsp ecif ied Hep 03-1 8 999 Hist H106 No H106 B, 6-20 oric ped/ 01 al adol Info rmat ion - Sour ce Unsp ecif ied MMR 03-2 Intr 3 999 Hist H149 No H149 4-19 amus oric 98 cula al r Info rmat ion - Sour ce Unsp ecif ied
--- OUTSIDE RECORDS SUMMARY | 2017-05-06 01:55 | External Medical Summary Rpt ---
Author Author , SANA HOOD Address Unknown Phone [email or web address] Support Name Relationship Address Phone JOSE, Next [...]
--- OUTSIDE RECORDS SUMMARY | 2017-05-06 01:56 | External Medical Summary Rpt ---
Author Author SANA Sifuentes, [employer] Organization [employer] Address Unknown Phone Unavailable Results Choriogonadotropin.beta subunit [Units] in 24 hour Urine Observa Value Referen Units Interpr Notes Date tion ce etation Range Choriogon NEG No No No Apr 12 adotropin informati informati informati 2017 .beta on in on in on in 10:40 PM subunit source source source [Units] data data data in 24 hour Urine Streptococcus pyogenes Ag [Presence] in Unspecified specimen Observa Value Referen Units Interpr Notes Date tion ce etation Range Strepto NOT NOTDETE No No LOT # Mar 24 coccus DETECTE CTED informa informa NA EXP 2017 pyogene D tion in tion in DATE NA 4:10 PM s Ag source source [Presen data data ce] in Unspeci fied specime n Chlamydia/GC Amplification Observa Value Referen Units Interpr Notes Date tion ce etation Range Chlamyd Negativ Negativ No No No Jan 18 ia e e informa informa informa 2017 trachom tion in tion in tion in 3:13 PM atis source source source rRNA data data data [Presen ce] in Unspeci fied specime n by Probe & target amplifi cation method Neisser Negativ Negativ No No Perform Jan 18 ia e e informa informa ed at: 2017 gonorrh tion in tion in CB - 3:13 PM oeae source source [facility] rRNA data data [Presen [place] ce] in [address], [place], [place] Probe & [id number] target 69Lab Directo amplifi r: cation Vincent method Kevon coto PhD, Phone: [phone] Urinalysis macro (dipstick) panel in Urine Observa Value Referen Units Interpr Notes Date tion ce etation Range Appeara Clear CLEAR No No No Jan 18 nce of informa informa informa 2017 Urine tion in tion in tion in 3:09 PM source source source data data data Bilirub NEGATIV NEG No No No Jan 18 in E informa informa informa 2016 [Presen tion in tion in tion in 3:09 PM ce] in source source source Urine data data data by Test strip Erythro TRACE NEG No Abnorma No Jan 18 cytes informa l informa 2016 [Presen tion in tion in 3:09 PM ce] in source source Urine data data Color YELLOW YELLOW No No No Jan 18 of informa informa informa 2017 Urine tion in tion in tion in 3:09 PM source source source data data data Glucose NEG No No No Jan 18 [Mass/vol informati informati informati 2017 3:09 ume] in on in on in on in PM Urine by source source source Test data data data strip Ketones NEGATIV NEG mg/dL No No Jan 18 E informa informa 2016 [Presen tion in tion in 3:09 PM ce] in source source Urine data data by Automat ed test strip pH of 5.0 - 8.5 No Normal No Jan 18 Urine informati informati 2017 3:09 on in on in PM source source data data Protein NEG mg/dL No No Jan 18 [Mass/vol informati informati 2017 3:09 ume] in on in on in PM Urine by source source Automated data data test strip Specific 1.005 - No Normal No Jan 18 gravity 1.030 informati informati 2017 3:09 of Urine on in on in PM source source data data Leukocy TRACE NEG No Abnorma No Jan 18 te informa l informa 2017 esteras tion in tion in 3:09 PM e source source [Presen data data ce] in Urine by Automat ed test strip Nitrite NEGATIV NEG No No No Jan 18 E informa informa informa 2016 [Presen tion in tion in tion in 3:09 PM ce] in source source source Urine data data data by Test strip Urobili 0.2 NEG E.U./dL No No Jan 18 nogen informa informa 2016 [Presen tion in tion in 3:09 PM ce] in source source Urine data data by Test strip Urinalysis macro (dipstick) panel in Urine Observa Value Referen Units Interpr Notes Date tion ce etation Range Appeara Clear CLEAR No No No Dec 15 nce of informa informa informa 2017 Urine tion in tion in tion in 3:41 PM source source source data data data Bilirub NEGATIV NEG No No No Jan 08 in E informa informa informa 2016 [Presen tion in tion in tion in 3:41 PM ce] in source source source Urine data data data by Test strip Erythro NEGATIV NEG No No No Jan 08 cytes E informa informa informa 2016 [Presen tion in tion in tion in 3:41 PM ce] in source source source Urine data data data Color YELLOW YELLOW No No No Dec 15 of informa informa informa 2017 Urine tion in tion in tion in 3:41 PM source source source data data data Glucose NEG No No No Jan 08 [Mass/vol informati informati informati 2017 3:41 ume] in on in on in on in PM Urine by source source source Test data data data strip Ketones NEGATIV NEG mg/dL No No Jan 08 E informa informa 2016 [Presen tion in tion in 3:41 PM ce] in source source Urine data data by Automat ed test strip pH of 5.0 - 8.5 No Normal No Dec 15 Urine informati informati 2017 3:41 on in on in PM source source data data Protein NEG mg/dL No No Dec 15 [Mass/vol informati informati 2017 3:41 ume] in on in on in PM Urine by source source Automated data data test strip Specific 1.005 - No Normal No Jan 08 gravity 1.030 informati informati 2017 3:41 of Urine on in on in PM source source data data Leukocy 3+ NEG No Abnorma No Dec 15 te informa l informa 2017 esteras tion in tion in 3:41 PM e source source [Presen data data ce] in Urine by Automat ed test strip Nitrite NEGATIV NEG No No No Jan 08 E informa informa informa 2016 [Presen tion in tion in tion in 3:41 PM ce] in source source source Urine data data data by Test strip Urobili 0.2 NEG E.U./dL No No Dec 15 nogen informa informa 2016 [Presen tion in tion in 3:41 PM ce] in source source Urine data data by Test strip Urine test by rapid immunoassa Observa Value Referen Units Interpr Notes Date tion ce etation Range Urine NEGATIV NEG No No INTERNA December 16 pregnan E informa informa L 2017 cy test tion in tion in CONTROL 8:04 PM by source source OK? : rapid data data YES immunoa ssa 7 1552 Airam z,Luz ty Urinalysis macro (dipstick) panel in Urine Observa [...] informa 2017 esteras tion in tion in tion in 7:59 PM e source source source [Presen data data data ce] in Urine by Automat ed test strip Nitrite NEGATIV NEG No No No December 16 E informa informa informa 2016 [Presen tion in in in 7:59 PM ce] in source source source Urine data data data by Test strip Urobili 0.2 NEG E.U./dL No No December 16 nogen informa informa 2016 [Pres ti in in 7:59 PM ce] in source source Urine data data by Test strip SPT, QUALITATIVE Observa Value Referen Units Interpr Notes Date tion ce etation Range SPT, NEGATIV NEGATIV No Normal No May 07 QUALITA E E informa informa 2011 ti in in 3:08 PM source source data data
--- OUTSIDE RECORDS SUMMARY | 2017-05-06 01:56 | External Medical Summary Rpt ---
[...] data [Presen [place] ce] in [address], [place]ime [place], [place] Probe & [id number] target 69Lab Directo amplifi r: cation Vincent method Kevon coto PhD, Phone: [phone] Urinalysis macro (dipstick) panel in Urine Observa [...]
== END 2017-04-13 00:24 | disposition home or self-care (01) ==
LOC: ER 22:32
PROVIDERS: Emergency Medicine
DX: N93.8 Other specified abnormal uterine and vaginal bleeding (principal); Z79.51 Long term (current) use of inhaled steroids; Z79.899 Other long term (current) drug therapy; Z79.3 Long term (current) use of hormonal contraceptives

== ENCOUNTER → 2017-05-10 | Outpatient (CLI) | payer MEDICARE, MEDICAID ==
[~2017-05-10] MED LIST changes: +ATENOLOL25 MG PO; +BACTRIM DS 8001 TA1 PO; +CIPRO 250MG TA250 MG PO; +FLONASE 50 MCG16 GM; +GABAPENTIN100 M1 PO; +KEFLEX 500MG.500 MG PO; +LORATADINE 10MG10 M1 PO; +MIRALAX17 GM/PACK PO; +MONTELUKAST SOD10 MG PO; +PYRIDIUM100 M2 PO; +PYRIDIUM200 M2 PO; +SPRINTEC 35 MCG1 TAB PO; +SUMATRIPTAN SUC25 MG PO
== END ==
LOC: LAB 15:04
DX: T78.1XXA Other adverse food reactions, not elsewhere classified, initial encounter (principal)